=== PATIENT | male | born 1960 | race Caucasian/White ===

== ENCOUNTER 2017-10-20 16:19 | Inpatient (IN) | payer MEDICARE, MEDICAID ==
--- NOTE | 2017-10-20 16:43 | ED Physician Chart ---
ED Chief Complaint/HPI - Patient Information Date Seen:: 10/20/17 Time Seen:: 16:15 Chief Complaint:: Agitation History of Present Illness:: onset x 3 days of agitation and uncooperative behavior; no report of trauma, H/ As, SIs, S/T, neck pain, C/P, SOB, Abd. Pain, A/N/V/D/C, fever, chills, or urinary s/s Allergies:: Allergies Allergy/AdvReac Type Severity Reaction Status Date / Time No Known Allergies Allergy Verified 10/20/17 16:33 Historian:: Patient, EMS Review:: Nurse's Note Reviewed, Old Chart Reviewed, EMS run form Reviewed <Mannie Duncan - Last Filed: 10/20/17 18:20> - Patient Information Allergies:: Allergies Allergy/AdvReac Type Severity Reaction Status Date / Time No Known Allergies Allergy Verified 10/20/17 16:33 Vitals:: Vital Signs - 8 hr 10/20/17 10/20/17 16:33 18:00 Temp 97.3 F HR 52 60 RR 16 16 BP 118/87 124/82 O2 Sat % 98 97 <Say Mckeon - Last Filed: 10/21/17 12:34> ED Review of Systems - Review of Systems General/Constitutional: No fever, No chills, No weight loss, No weakness, No diaphoresis, No edema, No loss of appetite Skin: No skin lesions, No rash, No bruising Head: No headache, No light-headedness Eyes: No loss of vision, No pain, No diplopia ENT: No earache, No nasal drainage, No sore throat, No tinnitus Neck: No neck pain, No swelling, No thyromegaly, No stiffness, No mass noted Cardio Vascular: No chest pain, No palpitations, No PND, No orthopnea, No edema Pulmonary: No SOB, No cough, No sputum, No wheezing GI: No nausea, No vomiting, No diarrhea, No pain, No melena, No hematochezia, No constipation, No hematemesis G/U: No dysuria, No frequency, No hematuria, No nacturia Musculoskeletal: No bone or joint pain, No back pain, No muscle pain Endocrine: No polyuria, No polydipsia Psychiatric: Prior psych history, Depression, Anxiety, No suicidal ideation, No homicidal ideation, No auditory hallucination, No visual hallucination Hematopoietic: No bruising, No lymphadenopathy Allergic/Immuno: No urticaria, No angioedema Neurological: No syncope, No focal symptoms, No weakness, No paresthesia, No headache, No seizure, No dizziness, No confusion, No vertigo <Mannie Duncan - Last Filed: 10/20/17 18:20> ED Past Medical History - Past Medical History Obtainable: Yes Past Medical History: HTN, Dyslipidemia, Dementia Family History: HTN Social History: Non Smoker, No Alcohol, No Drug Use, Single, Care Facility Surgical History: None Psychiatricy History: Depression, Schizophrenia, Bipolar, Dementia Medication: Reviewed <LinarandiMannie rice - Last Filed: 10/20/17 18:20> Family Medical History - Family Member Mother History Unknown: Yes <LindaSay - Last Filed: 10/21/17 12:34> ED Physical Exam - Physical Examination General/Constitutional: Awake, Well-developed, well-nourished, Alert, No distress, GCS 15, Non-toxic appearing, Ambulatory Head: Atraumatic Eyes: Lids, conjuctiva normal, PERRL, EOMI Skin: Nl inspection, No rash, No skin lesions, No ecchymosis, Well hydrated, No lymphadenopathy ENMT: External ears, nose nl, TM canals nl, Nasal exam nl, Lips, teeth, gums nl , Oropharynx nl, Tonsils nl Neck: Nontender, Full ROM w/o pain, No JVD, No nuchal rigidity, No bruit, No mass, No stridor Respiratory: Nl effort/Exclusion, Clear to Auscultation, No Wheeze/Rhonchi/Rales Cardio Vascular: RRR, No murmur, gallop, rubs, NL S1 S2, Carotid/Femoral/Distal pulses equal bilaterally GI: No tenderness/rebounding/guarding, No organomegaly, No hernia, Normal BS's, Nondistended, No mass/bruits, No McBurney tenderness : No CVA tenderness Extremities: No tenderness or effusion, Full ROM, normal strength in all extremities, No edema, Normal digits & nails Neuro/Psych: Alert/oriented, DTR's symmetric, Normal sensory exam, Normal motor strength, Judgement/insight normal, Mood normal, Normal gait, No focal deficits Other Neuro/Psych comments:: + Psychomotor Agitation; no SIs; Mood/Affect: Labile Misc: Normal back, No paraspinal tenderness <Mannie Duncan - Last Filed: 10/20/17 18:20> ED Labs/Radiology/EKG Results - Lab Results Comments:: WBC: 17.8; K+: 3.4 - EKG Interpretations EKG Time:: 16:52 Rate & Rhythm: 52; SB Comments:: RVH; non-specific st-t changes <Mannie Duncan - Last Filed: 10/20/17 18:20> - Lab Results Results: Laboratory Tests 10/20/17 10/20/17 10/20/17 17:00 17:00 17:00 WBC 17.8 H RBC 5.00 Hgb 16.5 Hct 47.8 MCV 95.6 MCH 33.0 H MCHC Differential 34.5 RDW 12.3 Plt Count 236 MPV 7.7 Neutrophils % 84.3 H Lymphocytes % 10.5 L Monocytes % 4.2 Eosinophils % 0.4 Basophils % 0.6 Sodium 136 Potassium 3.4 L Chloride 105 Carbon Dioxide 23.5 Anion Gap 10.9 BUN 21 Creatinine 0.9 Est GFR ( Amer) > 60.0 Est GFR (Non-Af Amer) > 60.0 BUN/Creatinine Ratio 23.3 Glucose 143 H Whole Bld Lactic Acid Calcium 9.6 Total Bilirubin 0.3 AST 28 ALT 19 Alkaline Phosphatase 71 Troponin I Total Protein 7.7 Albumin 4.6 Globulin 3.1 Albumin/Globulin Ratio 1.5 Triglycerides 241 H Cholesterol 138 LDL Cholesterol Direct 101 HDL Cholesterol 24 TSH 1.35 Salicylates < 25.0 L Acetaminophen < 10.0 L Ethyl Alcohol < 10 10/20/17 10/20/17 17:00 17:45 WBC RBC Hgb Hct MCV MCH MCHC Differential RDW Plt Count MPV Neutrophils % Lymphocytes % Monocytes % Eosinophils % Basophils % Sodium Potassium Chloride Carbon Dioxide Anion Gap BUN Creatinine Est GFR ( Amer) Est GFR (Non-Af Amer) BUN/Creatinine Ratio Glucose Whole Bld Lactic Acid 1.09 Calcium Total Bilirubin AST ALT Alkaline Phosphatase Troponin I 0.02 Total Protein Albumin Globulin Albumin/Globulin Ratio Triglycerides Cholesterol LDL Cholesterol Direct HDL Cholesterol TSH Salicylates Acetaminophen Ethyl Alcohol <Say Mckeon - Last Filed: 10/21/17 12:34> ED Assessment - Assessment General Assessment: Patient stated that he had right peritoneal wound for 11 years. The wound had some clear secretion. Wound culture was ordered. Due to elevated WBC, rocephin 1g IM was given. Patient can be started with empirical oral antibiotics and have adjustment once wound culture result become available. <Say Mckeon - Last Filed: 10/21/17 12:34> ED Septic Shock - . Is Septic Shock (SBP<90, OR Lactate>4 mmol\L) present?: No <Mannie Duncan - Last Filed: 10/20/17 18:20> - . Is Septic Shock (SBP<90, OR Lactate>4 mmol\L) present?: No - <6hrs of presentation: Vital Signs: Vital Signs - 8 hr 10/20/17 10/20/17 16:33 18:00 Temp 97.3 F HR 52 60 RR 16 16 BP 118/87 124/82 O2 Sat % 98 97 <Say Mckeon - Last Filed: 10/21/17 12:34> ED Reassessment (Disposition) - Diagnosis Diagnosis:: Dx: Psychosis; Agitation; Medical clearance; Leukocytosis; Hypokalemia <Mannie Duncan - Last Filed: 10/20/17 18:20> - Reassessment Reassessment:: Cleared for geropsych admission Reassessment Condition:: Improved - Patient Disposition Admitting Medical Physician:: Enrico Cortes Admitting Psych Physician:: Anil Woods <Say Mckeon - Last Filed: 10/21/17 12:34> ED Discharge Plan <Mannie Duncan - Last Filed: 10/20/17 18:20> <Say Mckeon - Last Filed: 10/21/17 12:34> - Patient Disposition Admit/Discharge/Transfer: Other Care w/in this hosp Condition at Disposition: Stable
[2017-10-20 17:11] LABS: % BASOPHILS 0.6 % (0.0-2.0); % EOSINOPHILS 0.4 % (0.0-5.0); % LYMPHOCYTES 10.5 % (20.0-50.0); % MONOCYTES 4.2 % (2.0-10.0); % NEUTROPHILS 84.3 % (40.0-80.0); BASOPHILE ABSOLUTE 0.1 Th/cumm (0-0.2); EOSINOPHILE ABSOLUTE 0.1 Th/cmm (0.1-0.4); HEMATOCRIT 47.8 % (41.0-60); HEMOGLOBIN 16.5 gm/dL (12-16); LYMPHOCYTE ABSOLUTE 1.9 Th/cmm (1.5-3.0); MEAN CELL VOLUME 95.6 fl (80-99); MEAN CORPUSCULAR HGB CONC 34.5 pg (28.0-36.0); MEAN PLATELET VOLUME 7.7 fl; MONOCYTE ABSOLUTE 0.7 Th/cmm (0.3-1.0); PLATELET COUNT 236 Th/cmm (150-400); RED CELL DISTRIBUTION WIDTH 12.3 % (11.5-20.0)
[2017-10-20 17:24] LABS: WHITE BLOOD COUNT 17.8 Th/cmm (4.8-10.8)
[2017-10-20 17:30] LABS: ACETAMINOPHEN < 10.0 ug/mL (10.0-30.0); ALB/GLOB RATIO 1.5 (1.0-1.8); ALBUMIN 4.6 gm/dL (4.2-5.5); ALKALINE PHOSPHATASE 71 U/L (34-104); ANION GAP 10.9 (7.0-16.0); BILIRUBIN,TOTAL 0.3 mg/dL (0.3-1.0); BUN - UREA NITROGEN 21 mg/dL (7-25); CALCIUM SERUM 9.6 mg/dL (8.6-10.3); CARBON DIOXIDE 23.5 mEq/L (21.0-31.0); CHLORIDE 105 mEq/L (98-107); CHOLESTEROL 138 mg/dL (<200); CREATININE - SERUM 0.9 mg/dL (0.7-1.3); GFR AFRICAN-AMERICAN > 60.0 ml/min (>90); GFR NON AFRICAN-AMERICAN > 60.0 ml/min; GLUCOSE 143 mg/dL (70-105); HDL -HIGH DENSITY LIPOPROTEIN 24 mg/dL (23-92); POTASSIUM SERUM 3.4 mEq/L (3.5-5.1); SALICYLATES (ASPIRIN) < 25.0 mg/L (30.0-100.0); SGOT 28 U/L (13-39); SGPT/ALT 19 U/L (7-52); SODIUM SERUM 136 mEq/L (136-145); TOTAL PROTEIN,SERUM 7.7 gm/dL (6.0-8.3); TRIGLYCERIDES 241 mg/dL (<150)
[2017-10-20] MEDS ORDERED: Potassium Chloride 20 mEq ER Tab PO ONE (18:11)
[2017-10-20] MEDS ORDERED: Potassium Chloride Elixir 20 mEq /15 mL UDC ONE (19:18)
[2017-10-20 19:39] LABS: URINE MICROSCOPIC INDICATED? YES; URINE SOURCE CLEAN C
[2017-10-20 19:40] LABS: URINE BILIRUBIN NEGATIVE (NEGATIVE); URINE BLOOD NEGATIVE (NEGATIVE); URINE GLUCOSE (UA) NEGATIVE (NEGATIVE); URINE KETONE TRACE mg/dL (NEGATIVE); URINE LEUKOCYTE ESTERASE NEGATIVE (NEGATIVE); URINE NITRATE NEGATIVE (NEGATIVE); URINE PH 6.5 (4.6 - 8.0); URINE PROTEIN TRACE mg/dL (NEGATIVE)
[2017-10-20 19:49] LABS: AMPHETAMINE URINE NEGATIVE (NEGATIVE); BARBITURATES URINE NEGATIVE (NEGATIVE); BENZODIAZEPINES QUAL URINE NEGATIVE (NEGATIVE); CANNABINOID THC NEGATIVE (NEGATIVE); COCAINE METABOLITE QUAL URINE NEGATIVE (NEGATIVE); METHADONE URINE NEGATIVE (NEGATIVE); METHAMPHETAMINES QUAL URINE NEGATIVE (NEGATIVE); OPIATES (MORPHINE) QUAL. URINE NEGATIVE (NEGATIVE); PHENCYCLIDINE (PCP) URINE NEGATIVE (NEGATIVE); TRICYCLICS (TCA) QUAL. URINE NEGATIVE (NEGATIVE)
[2017-10-20 19:52] LABS: URINE CLARITY CLEAR (CLEAR); URINE COLOR YELLOW
[2017-10-20 19:55] LABS: URINE BACTERIA NONE SEEN /hpf (NONE SEEN); URINE EPITHELIAL CELLS NONE SEEN /lpf (FEW); URINE RBC NONE SEEN /hpf (0-5); URINE WBC 0-2 /hpf (0-5)
[2017-10-20 21:23] VITALS: BP 133/77
[2017-10-20] MEDS ORDERED: Magnesium Hydroxide (MOM) 30 mL UDC PO PRN (22:33)
[2017-10-20] MEDS ORDERED: Maalox 30 mL Cup PO PRN (22:33)
[2017-10-20] MEDS ORDERED: Non-Formulary Item 1 EA (Acetaminophen [Pain Reliever] 1 TAB) PO PRN (22:38)
[2017-10-20] MEDS ORDERED: Hydrocodone/APAP 5mg/325mg Tab PO PRN (22:38)
[2017-10-20] MEDS ORDERED: Pneumococcal Vaccine 0.5 mL Vial IM ONE (23:17)
[2017-10-21] MEDS ORDERED: INSULIN ASPART SLIDING SCALE 100 UNITS/ML UNIT SUBQ SCH (07:30)
--- NOTE | 2017-10-21 08:14 | History and Physical ---
History of Present Illness - HPI Chief Complaint: Agitation HPI: 57 y/o male who presents to [facility] ER for increased agitation noted by the nursing staff at the SNF. Patient has been having increased agitation and uncooperative behavior for the past 3 days. Patient was seen and evaluated by ER physician who states there were no reports of trauma, headaches, neck pain, chest pain, shortness of breath, abdominal pain, Nausea, Vomiting, Diarrhea, or Constipation, fever, chills, or urinary symptoms. Initial labwork revealed the following... - Lab Results Results: Laboratory Tests 10/20/17 10/20/17 10/20/17 17:00 17:00 17:00 WBC 17.8 H RBC 5.00 Hgb 16.5 Hct 47.8 MCV 95.6 MCH 33.0 H MCHC Differential 34.5 RDW 12.3 Plt Count 236 MPV 7.7 Neutrophils % 84.3 H Lymphocytes % 10.5 L Monocytes % 4.2 Eosinophils % 0.4 Basophils % 0.6 Sodium 136 Potassium 3.4 L Chloride 105 Carbon Dioxide 23.5 Anion Gap 10.9 BUN 21 Creatinine 0.9 Est GFR ( Amer) > 60.0 Est GFR (Non-Af Amer) > 60.0 BUN/Creatinine Ratio 23.3 Glucose 143 H Whole Bld Lactic Acid Calcium 9.6 Total Bilirubin 0.3 AST 28 ALT 19 Alkaline Phosphatase 71 Troponin I Total Protein 7.7 Albumin 4.6 Globulin 3.1 Albumin/Globulin Ratio 1.5 Triglycerides 241 H Cholesterol 138 LDL Cholesterol Direct 101 HDL Cholesterol 24 TSH 1.35 Salicylates < 25.0 L Acetaminophen < 10.0 L Ethyl Alcohol < 10 10/20/17 10/20/17 17:00 17:45 WBC RBC Hgb Hct MCV MCH MCHC Differential RDW Plt Count MPV Neutrophils % Lymphocytes % Monocytes % Eosinophils % Basophils % Sodium Potassium Chloride Carbon Dioxide Anion Gap BUN Creatinine Est GFR ( Amer) Est GFR (Non-Af Amer) BUN/Creatinine Ratio Glucose Whole Bld Lactic Acid 1.09 Calcium Total Bilirubin AST ALT Alkaline Phosphatase Troponin I 0.02 Total Protein Albumin Globulin Albumin/Globulin Ratio Triglycerides Cholesterol LDL Cholesterol Direct HDL Cholesterol TSH Salicylates Acetaminophen Ethyl Alcohol Patient was noted to have an elevated WBC of 17K .... ER physician noted, the "Patient stated that he had right peritoneal wound for 11 years. The wound had some clear secretion. Wound culture was ordered. Due to elevated WBC, rocephin 1g IM was given. Patient can be started with empirical oral antibiotics and have adjustment once wound culture result become available." Patient was subsequently admitted for further evaluation and treatment. Vital Signs: Last Vital Signs Temp 98.4 F 10/21/17 04:33 Pulse 77 10/21/17 04:33 Resp 19 10/21/17 04:33 BP 117/76 10/21/17 04:33 Pulse Ox 94 10/21/17 04:33 Past Medical History Cardiovascular: Report: HTN, Hyperlipidemia Pulmonary: Report: No Pertinent Hx [employer]: Report: Dementia GI: Report: No Pertinent Hx Psych: Report: Bipolar, Depression, Psychosis, Schizophrenia Musculoskeletal: Report: No Pertinent Hx Rheumatologic: Report: No pertinent Hx Infectious Disease: Report: No Pertinent Hx Renal/: Report: No Pertinent Hx Endocrine: Report: No Pertinent Hx Dermatology: Report: No Pertinent Hx Other History: Patient stated that he had right peritoneal wound for 11 years. The wound had some clear secretion. Wound culture was ordered. Due to elevated WBC, rocephin 1g IM was given. Patient can be started with empirical oral antibiotics and have adjustment once wound culture result become available. - Past Surgical History Past Surgical History: No pertinent Hx Family Medical History - Family Member Mother History Unknown: Yes Ethnicity: Unknown Living Status: Unknown Social History Smoke: No Alcohol: None Drugs: None Lives: [facility] - Medications Home Medications: Home Medication Medication Instructions Recorded Type Acetaminophen [Pain Reliever] 1 tab PO Q6H PRN 10/20/17 History Calcium Carbonate [Calcium] 1 tab PO BID 10/20/17 History D10w 250 ml IV STAT PRN PRN 10/20/17 History Diclofenac Sodium 1 tab PO BID 10/20/17 History Ferrous Sulfate [Iron] 1 tab PO BID 10/20/17 History Glucagon HCl 1 mg IM STAT PRN PRN 10/20/17 History Hydrocodone/APAP 5mg/325mg [[place] 1 tab PO Q6H PRN 10/20/17 History 5mg/325mg] Hydrocodone/Acetaminophen [[place] 1 tab PO DAILY 10/20/17 History 325 mg-5 mg*] Insulin Glulisine [Apidra] 0 unit SUBQ QDAC 10/20/17 History Levothyroxine [Synthroid] 1 tab PO DAILY 10/20/17 History Multivitamin-Min/Iron/FA/Vit K 1 tab PO DAILY 10/20/17 History [Multi-Day Plus Minerals Tablet] Pantoprazole [Protonix] 1 tab PO DAILY 10/20/17 History - Allergies Allergies/Adverse Reactions: Allergies Allergy/AdvReac Type Severity Reaction Status Date / Time No Known Allergies Allergy Verified 10/20/17 16:33 Review of Systems - Review of Systems Constitutional: Report: No Significant Eyes: Report: No Significant ENT: Report: No Significant Respiratory: Report: No Significant Cardiovascular: Report: No Significant Gastrointestinal: Report: No Significant Genitourinary: Report: No Significant Musculoskeletal: Report: No Significant Skin: Report: No Significant Neurological: Report: Confusion Physical Exam - Physical Exam HEENT: Report: Ears Nose Throat within normal limits, Pharnyx within normal limits Neck: Report: Within normal limits. Denies: Thyromegaly Cardiovascular Systems: Report: +s1/s2 noted, Regular, Rate and Rhythm Respiratory: Report: Breath Sounds are within normal limits, Clear to Auscultation of lung crespo Abdomen: Report: Non-tender to palpation Back: Report: Inspection of back is within normal limits. Extremities: Report: Non-tender to palpation. Skin: Report: Color of skin is within normal limits - Lab Results All Lab Results last 24 hours: Laboratory Results - last 24 hr 10/20/17 10/20/17 10/20/17 17:00 17:00 17:00 WBC 17.8 H RBC 5.00 Hgb 16.5 Hct 47.8 MCV 95.6 MCH 33.0 H MCHC Differential 34.5 RDW 12.3 Plt Count 236 MPV 7.7 Neutrophils % 84.3 H Lymphocytes % 10.5 L Monocytes % 4.2 Eosinophils % 0.4 Basophils % 0.6 Sodium 136 Potassium 3.4 L Chloride 105 Carbon Dioxide 23.5 Anion Gap 10.9 BUN 21 Creatinine 0.9 Est GFR ( Amer) > 60.0 Est GFR (Non-Af Amer) > 60.0 BUN/Creatinine Ratio 23.3 Glucose 143 H POC Glucose Whole Bld Lactic Acid Calcium 9.6 Total Bilirubin 0.3 AST 28 ALT 19 Alkaline Phosphatase 71 Troponin I Total Protein 7.7 Albumin 4.6 Globulin 3.1 Albumin/Globulin Ratio 1.5 Triglycerides 241 H Cholesterol 138 LDL Cholesterol Direct 101 HDL Cholesterol 24 TSH 1.35 Urine Source Urine Color Urine Clarity Urine pH Ur Specific [place] Urine Protein Urine Glucose (UA) Urine Ketones Urine Blood Urine Nitrate Urine Bilirubin Urine Urobilinogen Ur Leukocyte Esterase Urine RBC Urine WBC Ur Epithelial Cells Calcium Oxalate Crystal Urine Bacteria Urine Mucus Salicylates < 25.0 L Urine Opiates Screen Urine Methadone Screen Acetaminophen < 10.0 L Ur Barbiturates Screen Ur Tricyclics Screen Ur Phencyclidine Scrn Amphetamines Screen U Methamphetamines Scrn U Benzodiazepines Scrn U Cocaine Metab Screen U Cannabinoids Screen Ethyl Alcohol < 10 10/20/17 10/20/17 10/20/17 17:00 17:45 19:00 WBC RBC Hgb Hct MCV MCH MCHC Differential RDW Plt Count MPV Neutrophils % Lymphocytes % Monocytes % Eosinophils % Basophils % Sodium Potassium Chloride Carbon Dioxide Anion Gap BUN Creatinine Est GFR ( Amer) Est GFR (Non-Af Amer) BUN/Creatinine Ratio Glucose POC Glucose Whole Bld Lactic Acid 1.09 Calcium Total Bilirubin AST ALT Alkaline Phosphatase Troponin I 0.02 Total Protein Albumin Globulin Albumin/Globulin Ratio Triglycerides Cholesterol LDL Cholesterol Direct HDL Cholesterol TSH Urine Source CLEAN C Urine Color YELLOW Urine Clarity CLEAR Urine pH 6.5 Ur Specific [place] 1.025 Urine Protein TRACE Urine Glucose (UA) NEGATIVE Urine Ketones TRACE Urine Blood NEGATIVE Urine Nitrate NEGATIVE Urine Bilirubin NEGATIVE Urine Urobilinogen 1.0 Ur Leukocyte Esterase NEGATIVE Urine RBC NONE SEEN Urine WBC 0-2 Ur Epithelial Cells NONE SEEN Calcium Oxalate Crystal FEW Urine Bacteria NONE SEEN Urine Mucus MODERATE Salicylates Urine Opiates Screen Urine Methadone Screen Acetaminophen Ur Barbiturates Screen Ur Tricyclics Screen Ur Phencyclidine Scrn Amphetamines Screen U Methamphetamines Scrn U Benzodiazepines Scrn U Cocaine Metab Screen U Cannabinoids Screen Ethyl Alcohol 10/20/17 10/21/17 19:00 06:46 WBC RBC Hgb Hct MCV MCH MCHC Differential RDW Plt Count MPV Neutrophils % Lymphocytes % Monocytes % Eosinophils % Basophils % Sodium Potassium Chloride Carbon Dioxide Anion Gap BUN Creatinine Est GFR ( Amer) Est GFR (Non-Af Amer) BUN/Creatinine Ratio Glucose POC Glucose 106 H Whole Bld Lactic Acid Calcium Total Bilirubin AST ALT Alkaline Phosphatase Troponin I Total Protein Albumin Globulin Albumin/Globulin Ratio Triglycerides Cholesterol LDL Cholesterol Direct HDL Cholesterol TSH Urine Source Urine Color Urine Clarity Urine pH Ur Specific [place] Urine Protein Urine Glucose (UA) Urine Ketones Urine Blood Urine Nitrate Urine Bilirubin Urine Urobilinogen Ur Leukocyte Esterase Urine RBC Urine WBC Ur Epithelial Cells Calcium Oxalate Crystal Urine Bacteria Urine Mucus Salicylates Urine Opiates Screen NEGATIVE Urine Methadone Screen NEGATIVE Acetaminophen Ur Barbiturates Screen NEGATIVE Ur Tricyclics Screen NEGATIVE Ur Phencyclidine Scrn NEGATIVE Amphetamines Screen NEGATIVE U Methamphetamines Scrn NEGATIVE U Benzodiazepines Scrn NEGATIVE U Cocaine Metab Screen NEGATIVE U Cannabinoids Screen NEGATIVE Ethyl Alcohol - Assessment Assessment: cellulitis to abdomen Psychosis Agitation Leukocytosis Hypokalemia HTN Dyslipidemia Dementia Depression Schizophrenia Bipolar - Plan Plan: admit to [facility] repeat CBC, CMP continue oral antibiotics.
[2017-10-21 08:52] LABS: % BASOPHILS 0.6 % (0.0-2.0); % EOSINOPHILS 0.6 % (0.0-5.0); % MONOCYTES 5.3 % (2.0-10.0); % NEUTROPHILS 72.5 % (40.0-80.0); BASOPHILE ABSOLUTE 0.1 Th/cumm (0-0.2); EOSINOPHILE ABSOLUTE 0.1 Th/cmm (0.1-0.4); HEMATOCRIT 46.7 % (41.0-60); HEMOGLOBIN 15.6 gm/dL (12-16); LYMPHOCYTE ABSOLUTE 1.9 Th/cmm (1.5-3.0); MEAN CELL VOLUME 96.8 fl (80-99); MEAN CORPUSCULAR HEMOGLOBIN 32.3 pg (26.0-30.0); MEAN CORPUSCULAR HGB CONC 33.4 pg (28.0-36.0); MEAN PLATELET VOLUME 7.6 fl; MONOCYTE ABSOLUTE 0.5 Th/cmm (0.3-1.0); NEUTROPHILE ABSOLUTE 6.3 Th/cmm (1.8-8.0); PLATELET COUNT 240 Th/cmm (150-400); RED BLOOD COUNT 4.82 Mil/cmm (4.30-5.70); RED CELL DISTRIBUTION WIDTH 12.2 % (11.5-20.0)
[2017-10-21] MEDS: Diclofenac 75 mg Tab PO SCH ×2 (08:57→16:10)
[2017-10-21] MEDS: Ferrous Sulfate 325 MG TAB PO SCH ×2 (08:57→16:10)
[2017-10-21] MEDS: Hydrocodone/APAP 5mg/325mg Tab PO SCH (08:58)
[2017-10-21] MEDS: Multivitamin w/ Minerals Tab PO SCH (08:59)
[2017-10-21] MEDS: Levothyroxine 0.025 Mg Tab PO SCH (08:59)
[2017-10-21] MEDS: Pantoprazole 40 mg EC Tab PO SCH (08:59)
[2017-10-21] MEDS ORDERED: Multivitamin Tab PO SCH (09:00)
[2017-10-21 09:04] LABS: WHITE BLOOD COUNT 8.9 Th/cmm (4.8-10.8)
[2017-10-21 09:11] LABS: ALB/GLOB RATIO 1.5 (1.0-1.8); ALBUMIN 4.5 gm/dL (4.2-5.5); ALKALINE PHOSPHATASE 80 U/L (34-104); ANION GAP 9.7 (7.0-16.0); BILIRUBIN,TOTAL 0.5 mg/dL (0.3-1.0); BUN - UREA NITROGEN 22 mg/dL (7-25); CALCIUM SERUM 9.6 mg/dL (8.6-10.3); CHLORIDE 105 mEq/L (98-107); CREATININE - SERUM 0.8 mg/dL (0.7-1.3); GFR AFRICAN-AMERICAN > 60.0 ml/min (>90); GFR NON AFRICAN-AMERICAN > 60.0 ml/min; GLUCOSE 137 mg/dL (70-105); POTASSIUM SERUM 3.7 mEq/L (3.5-5.1); SGOT 36 U/L (13-39); SGPT/ALT 20 U/L (7-52); SODIUM SERUM 135 mEq/L (136-145); TOTAL PROTEIN,SERUM 7.6 gm/dL (6.0-8.3)
[2017-10-21] MEDS: INSULIN ASPART SLIDING SCALE 100 UNITS/ML UNIT SUBQ SCH ×3 (11:27→20:55)
[2017-10-21 21:30] LABS: A1C % 5.1 % (4.0-6.0)
[2017-10-22] MEDS: INSULIN ASPART SLIDING SCALE 100 UNITS/ML UNIT SUBQ SCH ×4 (07:23→21:56)
--- NOTE | 2017-10-22 08:14 | General Progress Note ---
Subjective - Review of Systems Service Date: 10/22/17 Subjective: T 97.0 P 60 BP 98/54 R 18 Objective - Results Result Diagrams: 10/21/17 08:40 10/21/17 08:40 Recent Labs: Laboratory Last Values WBC 8.9 Th/cmm (4.8-10.8) D 10/21/17 08:40 RBC 4.82 Mil/cmm (4.30-5.70) 10/21/17 08:40 Hgb 15.6 gm/dL (12-16) 10/21/17 08:40 Hct 46.7 % (41.0-60) 10/21/17 08:40 MCV 96.8 fl (80-99) 10/21/17 08:40 MCH 32.3 pg (26.0-30.0) H 10/21/17 08:40 MCHC Differential 33.4 pg (28.0-36.0) 10/21/17 08:40 RDW 12.2 % (11.5-20.0) 10/21/17 08:40 Plt Count 240 Th/cmm (150-400) 10/21/17 08:40 MPV 7.6 fl 10/21/17 08:40 Neutrophils % 72.5 % (40.0-80.0) 10/21/17 08:40 Lymphocytes % 21.0 % (20.0-50.0) 10/21/17 08:40 Monocytes % 5.3 % (2.0-10.0) 10/21/17 08:40 Eosinophils % 0.6 % (0.0-5.0) 10/21/17 08:40 Basophils % 0.6 % (0.0-2.0) 10/21/17 08:40 Sodium 135 mEq/L (136-145) L 10/21/17 08:40 Potassium 3.7 mEq/L (3.5-5.1) 10/21/17 08:40 Chloride 105 mEq/L (98-107) 10/21/17 08:40 Carbon Dioxide 24.0 mEq/L (21.0-31.0) 10/21/17 08:40 Anion Gap 9.7 (7.0-16.0) 10/21/17 08:40 BUN 22 mg/dL (7-25) 10/21/17 08:40 Creatinine 0.8 mg/dL (0.7-1.3) 10/21/17 08:40 Est GFR ( Amer) > 60.0 ml/min (>90) 10/21/17 08:40 Est GFR (Non-Af Amer) > 60.0 ml/min 10/21/17 08:40 BUN/Creatinine Ratio 27.5 10/21/17 08:40 Glucose 137 mg/dL (70-105) H 10/21/17 08:40 POC Glucose 105 MG/DL (70 - 105) 10/21/17 20:20 Hemoglobin A1c % 5.1 % (4.0-6.0) 10/20/17 17:00 Whole Bld Lactic Acid 1.09 mmol/L (0.60-1.99) 10/20/17 17:45 Calcium 9.6 mg/dL (8.6-10.3) 10/21/17 08:40 Total Bilirubin 0.5 mg/dL (0.3-1.0) 10/21/17 08:40 AST 36 U/L (13-39) 10/21/17 08:40 ALT 20 U/L (7-52) 10/21/17 08:40 Alkaline Phosphatase 80 U/L (34-104) 10/21/17 08:40 Troponin I 0.02 ng/mL (0.01-0.05) 10/20/17 17:00 Total Protein 7.6 gm/dL (6.0-8.3) 10/21/17 08:40 Albumin 4.5 gm/dL (4.2-5.5) 10/21/17 08:40 Globulin 3.1 gm/dL 10/21/17 08:40 Albumin/Globulin Ratio 1.5 (1.0-1.8) 10/21/17 08:40 Triglycerides 241 mg/dL (<150) H 10/20/17 17:00 Cholesterol 138 mg/dL (<200) 10/20/17 17:00 LDL Cholesterol Direct 101 mg/dL (75-193) 10/20/17 17:00 HDL Cholesterol 24 mg/dL (23-92) 10/20/17 17:00 TSH 1.35 uIU/ml (0.34-5.60) 10/20/17 17:00 Urine Source CLEAN C 10/20/17 19:00 Urine Color YELLOW 10/20/17 19:00 Urine Clarity CLEAR (CLEAR) 10/20/17 19:00 Urine pH 6.5 (4.6 - 8.0) 10/20/17 19:00 Ur Specific [place] 1.025 (1.005-1.030) 10/20/17 19:00 Urine Protein TRACE mg/dL (NEGATIVE) 10/20/17 19:00 Urine Glucose (UA) NEGATIVE mg/dL (NEGATIVE) 10/20/17 19:00 Urine Ketones TRACE mg/dL (NEGATIVE) 10/20/17 19:00 Urine Blood NEGATIVE (NEGATIVE) 10/20/17 19:00 Urine Nitrate NEGATIVE (NEGATIVE) 10/20/17 19:00 Urine Bilirubin NEGATIVE (NEGATIVE) 10/20/17 19:00 Urine Urobilinogen 1.0 E.U./dL (0.2 - 1.0) 10/20/17 19:00 Ur Leukocyte Esterase NEGATIVE (NEGATIVE) 10/20/17 19:00 Urine RBC NONE SEEN /hpf (0-5) 10/20/17 19:00 Urine WBC 0-2 /hpf (0-5) 10/20/17 19:00 Ur Epithelial Cells NONE SEEN /lpf (FEW) 10/20/17 19:00 Calcium Oxalate Crystal FEW /hpf 10/20/17 19:00 Urine Bacteria NONE SEEN /hpf (NONE SEEN) 10/20/17 19:00 Urine Mucus MODERATE /lpf (FEW) 10/20/17 19:00 Salicylates < 25.0 mg/L (30.0-100.0) L 10/20/17 17:00 Urine Opiates Screen NEGATIVE (NEGATIVE) 10/20/17 19:00 Urine Methadone Screen NEGATIVE (NEGATIVE) 10/20/17 19:00 Acetaminophen < 10.0 ug/mL (10.0-30.0) L 10/20/17 17:00 Ur Barbiturates Screen NEGATIVE (NEGATIVE) 10/20/17 19:00 Ur Tricyclics Screen NEGATIVE (NEGATIVE) 10/20/17 19:00 Ur Phencyclidine Scrn NEGATIVE (NEGATIVE) 10/20/17 19:00 Amphetamines Screen NEGATIVE (NEGATIVE) 10/20/17 19:00 U Methamphetamines Scrn NEGATIVE (NEGATIVE) 10/20/17 19:00 U Benzodiazepines Scrn NEGATIVE (NEGATIVE) 10/20/17 19:00 U Cocaine Metab Screen NEGATIVE (NEGATIVE) 10/20/17 19:00 U Cannabinoids Screen NEGATIVE (NEGATIVE) 10/20/17 19:00 Ethyl Alcohol < 10 mg/dL (0-10) 10/20/17 17:00 RPR NONREACTIVE (NONREACTIVE) 10/20/17 17:00 - Physical Exam Vitals and I&O: Vital Signs Temp 97 F 10/21/17 14:49 Pulse 60 10/21/17 14:49 Resp 18 10/21/17 14:49 BP 98/54 10/21/17 14:49 Pulse Ox 98 10/21/17 14:49 Active Medications: Current Medications Acetaminophen (Tylenol) 650 mg PO Q4H PRN PRN Reason: Mild Pain / Temp above 100 Stop: 12/19/17 22:32 Acetaminophen/Hydrocodone Bitart ([place] 5mg/325mg) 1 tab PO DAILY [facility] Stop: 12/20/17 08:59 Last Admin: 10/21/17 08:58 Dose: 1 tab Acetaminophen/Hydrocodone Bitart ([place] 5mg/325mg) 1 tab PO Q6H PRN PRN Reason: moderate/severe pain Stop: 12/19/17 22:37 Al Hydrox/Mg Hydrox/Simethicone (Maalox) 30 ml PO Q4H PRN PRN Reason: GI DISTRESS Stop: 12/19/17 22:32 Calcium Carbonate (Os-Harshad) 500 mg PO BID [facility] Stop: 12/20/17 08:59 Last Admin: 10/21/17 16:10 Dose: 500 mg Cephalexin Monohydrate (Keflex) 500 mg PO QID [facility] Stop: 12/20/17 08:59 Last Admin: 10/21/17 20:56 Dose: 500 mg Diclofenac Sodium (Voltaren) 75 mg PO BID [facility] Stop: 12/20/17 08:59 Last Admin: 10/21/17 16:10 Dose: 75 mg Ferrous Sulfate (Iron) 325 mg PO BID [facility] Stop: 12/20/17 08:59 Last Admin: 10/21/17 16:10 Dose: 325 mg Insulin Aspart (Novolog Insulin Sliding Scale) 0 units SUBQ ACHS [facility]; Protocol Stop: 12/20/17 11:29 Last Admin: 10/22/17 07:23 Dose: Not Given Levothyroxine Sodium (Synthroid) 0.025 mg PO DAILY ANDI Stop: 12/20/17 08:59 Last Admin: 10/21/17 08:59 Dose: 0.025 mg Lorazepam (Ativan) 0.5 mg PO Q4HR PRN; Protocol PRN Reason: Anxiety Stop: 11/19/17 20:59 Last Admin: 10/21/17 20:57 Dose: 0.5 mg Magnesium Hydroxide (Milk Of Magnesia) 30 ml PO HS PRN PRN Reason: Constipation Pantoprazole Sodium (Protonix) 40 mg PO DAILY ANDI Stop: 12/20/17 08:59 Last Admin: 10/21/17 08:59 Dose: 40 mg Quetiapine Fumarate (Seroquel) 50 mg PO Q12HR ANDI; Protocol Stop: 12/21/17 08:59 Zolpidem Tartrate (Ambien) 5 mg PO HS PRN PRN Reason: Insomnia Stop: 12/19/17 22:32 Last Admin: 10/21/17 20:58 Dose: 5 mg General: Alert, Oriented x3, No acute distress HEENT: Atraumatic, PERRLA, EOMI Neck: Supple, no JVD, no Thyromegaly Cardiovascular: Regular rate, Normal S1, Normal S2 Lungs: Clear to auscultation Abdomen: Bowel sounds, Soft Extremities: no Clubbing, no Cyanosis, no Edema Neurological: Normal gait, Normal speech Skin: no Rash Assessment/Plan - Assessment Assessment: cellulitis to abdomen Psychosis Agitation Leukocytosis Hypokalemia HTN hyponatremia Dyslipidemia Dementia Depression Schizophrenia Bipolar - [facility], C[facility] continue oral antibiotics.
[2017-10-22] MEDS: Ferrous Sulfate 325 MG TAB PO SCH ×2 (08:54→16:52)
[2017-10-22] MEDS: Levothyroxine 0.025 Mg Tab PO SCH (08:54)
[2017-10-22] MEDS: Pantoprazole 40 mg EC Tab PO SCH (08:54)
[2017-10-22] MEDS: Multivitamin w/ Minerals Tab PO SCH (08:54)
[2017-10-22] MEDS: Hydrocodone/APAP 5mg/325mg Tab PO SCH (08:55)
[2017-10-22] MEDS: Diclofenac 75 mg Tab PO SCH ×2 (08:55→16:52)
--- NOTE | 2017-10-22 21:28 | Psychosocial Evaluation ---
DATE OF SERVICE: INITIAL EVALUATION AND MENTAL STATUS EXAM PATIENT'S AGE: 57. SEX: Male. PHYSICIAN: Anil Woods MD, MPH CHIEF COMPLAINT: Agitation and striking out behavior. HISTORY OF PRESENT ILLNESS: The patient is a 57-year-old male who lives in [facility]. The patient has been running out of the building and striking out peers and staffs and has destructive behavior. The patient also has been angry and paranoid. The patient also has been suspicious and has been not able to follow any of the staff's directions. The patient also during interview has not been able to carry on coherent conversation. PAST PSYCHIATRIC HISTORY: The patient has history of what seems to be psychosis and to rule out schizophrenic disorder versus schizoaffective disorder. SOCIAL HISTORY: The patient lives in [facility]. No known alcohol or drug use. No legal issues or abuse issues. The patient is unemployed, on disability. ALLERGIES: No known allergies. MENTAL STATUS EXAMINATION: The patient appears slightly older than his stated age. Anxious. Irritable mood. Flat affect. Unkempt. Thought processes are circumstantial and tangential with flight of ideas. The patient also was agitated when I started asking questions. The patient denied auditory or visual hallucinations, but seems to be preoccupied. He denies any thoughts of suicide or homicide. The patient is alert, but unable to assess his orientation or memory at this time because of his agitation and irritability. Poor insight. Poor judgment. Seems to be of average intelligence based on his verbal ability. ASSESSMENT AND PRIMARY DIAGNOSIS: Schizoaffective disorder, bipolar type, with psychotic features. TREATMENT PLAN: We will monitor the patient's behavior and condition closely. Also, we will start the patient on Seroquel. Also, we will work on his agitation and irritability. ESTIMATED LENGTH OF STAY: 7-10 days. PATIENT'S STRENGTHS AND WEAKNESSES: The patient's strength is not clear at this time. Weaknesses are his poor impulse control and inability to follow directions. AFTER-DISCHARGE PLAN: Outpatient treatment and followup will continue as an outpatient. CRITERIA FOR DISCHARGE: The patient will not be aggressive and will have better impulse control and we will stabilize psychotropic medications. JOB# [id number]
[2017-10-23] MEDS: INSULIN ASPART SLIDING SCALE 100 UNITS/ML UNIT SUBQ SCH ×4 (06:46→21:17)
--- NOTE | 2017-10-23 06:52 | General Progress Note ---
Subjective - Review of Systems Service Date: 10/23/17 Subjective: T 97.8 P 52 BP 103/53 R 18 Objective - Results Result Diagrams: 10/21/17 08:40 10/21/17 08:40 Recent Labs: Laboratory Last Values WBC 8.9 Th/cmm (4.8-10.8) D 10/21/17 08:40 RBC 4.82 Mil/cmm (4.30-5.70) 10/21/17 08:40 Hgb 15.6 gm/dL (12-16) 10/21/17 08:40 Hct 46.7 % (41.0-60) 10/21/17 08:40 MCV 96.8 fl (80-99) 10/21/17 08:40 MCH 32.3 pg (26.0-30.0) H 10/21/17 08:40 MCHC Differential 33.4 pg (28.0-36.0) 10/21/17 08:40 RDW 12.2 % (11.5-20.0) 10/21/17 08:40 Plt Count 240 Th/cmm (150-400) 10/21/17 08:40 MPV 7.6 fl 10/21/17 08:40 Neutrophils % 72.5 % (40.0-80.0) 10/21/17 08:40 Lymphocytes % 21.0 % (20.0-50.0) 10/21/17 08:40 Monocytes % 5.3 % (2.0-10.0) 10/21/17 08:40 Eosinophils % 0.6 % (0.0-5.0) 10/21/17 08:40 Basophils % 0.6 % (0.0-2.0) 10/21/17 08:40 Sodium 135 mEq/L (136-145) L 10/21/17 08:40 Potassium 3.7 mEq/L (3.5-5.1) 10/21/17 08:40 Chloride 105 mEq/L (98-107) 10/21/17 08:40 Carbon Dioxide 24.0 mEq/L (21.0-31.0) 10/21/17 08:40 Anion Gap 9.7 (7.0-16.0) 10/21/17 08:40 BUN 22 mg/dL (7-25) 10/21/17 08:40 Creatinine 0.8 mg/dL (0.7-1.3) 10/21/17 08:40 Est GFR ( Amer) > 60.0 ml/min (>90) 10/21/17 08:40 Est GFR (Non-Af Amer) > 60.0 ml/min 10/21/17 08:40 BUN/Creatinine Ratio 27.5 10/21/17 08:40 Glucose 137 mg/dL (70-105) H 10/21/17 08:40 POC Glucose 111 MG/DL (70 - 105) H 10/23/17 06:39 Hemoglobin A1c % 5.1 % (4.0-6.0) 10/20/17 17:00 Whole Bld Lactic Acid 1.09 mmol/L (0.60-1.99) 10/20/17 17:45 Calcium 9.6 mg/dL (8.6-10.3) 10/21/17 08:40 Total Bilirubin 0.5 mg/dL (0.3-1.0) 10/21/17 08:40 AST 36 U/L (13-39) 10/21/17 08:40 ALT 20 U/L (7-52) 10/21/17 08:40 Alkaline Phosphatase 80 U/L (34-104) 10/21/17 08:40 Troponin I 0.02 ng/mL (0.01-0.05) 10/20/17 17:00 Total Protein 7.6 gm/dL (6.0-8.3) 10/21/17 08:40 Albumin 4.5 gm/dL (4.2-5.5) 10/21/17 08:40 Globulin 3.1 gm/dL 10/21/17 08:40 Albumin/Globulin Ratio 1.5 (1.0-1.8) 10/21/17 08:40 Triglycerides 241 mg/dL (<150) H 10/20/17 17:00 Cholesterol 138 mg/dL (<200) 10/20/17 17:00 LDL Cholesterol Direct 101 mg/dL (75-193) 10/20/17 17:00 HDL Cholesterol 24 mg/dL (23-92) 10/20/17 17:00 TSH 1.35 uIU/ml (0.34-5.60) 10/20/17 17:00 Urine Source CLEAN C 10/20/17 19:00 Urine Color YELLOW 10/20/17 19:00 Urine Clarity CLEAR (CLEAR) 10/20/17 19:00 Urine pH 6.5 (4.6 - 8.0) 10/20/17 19:00 Ur Specific [place] 1.025 (1.005-1.030) 10/20/17 19:00 Urine Protein TRACE mg/dL (NEGATIVE) 10/20/17 19:00 Urine Glucose (UA) NEGATIVE mg/dL (NEGATIVE) 10/20/17 19:00 Urine Ketones TRACE mg/dL (NEGATIVE) 10/20/17 19:00 Urine Blood NEGATIVE (NEGATIVE) 10/20/17 19:00 Urine Nitrate NEGATIVE (NEGATIVE) 10/20/17 19:00 Urine Bilirubin NEGATIVE (NEGATIVE) 10/20/17 19:00 Urine Urobilinogen 1.0 E.U./dL (0.2 - 1.0) 10/20/17 19:00 Ur Leukocyte Esterase NEGATIVE (NEGATIVE) 10/20/17 19:00 Urine RBC NONE SEEN /hpf (0-5) 10/20/17 19:00 Urine WBC 0-2 /hpf (0-5) 10/20/17 19:00 Ur Epithelial Cells NONE SEEN /lpf (FEW) 10/20/17 19:00 Calcium Oxalate Crystal FEW /hpf 10/20/17 19:00 Urine Bacteria NONE SEEN /hpf (NONE SEEN) 10/20/17 19:00 Urine Mucus MODERATE /lpf (FEW) 10/20/17 19:00 Salicylates < 25.0 mg/L (30.0-100.0) L 10/20/17 17:00 Urine Opiates Screen NEGATIVE (NEGATIVE) 10/20/17 19:00 Urine Methadone Screen NEGATIVE (NEGATIVE) 10/20/17 19:00 Acetaminophen < 10.0 ug/mL (10.0-30.0) L 10/20/17 17:00 Ur Barbiturates Screen NEGATIVE (NEGATIVE) 10/20/17 19:00 Ur Tricyclics Screen NEGATIVE (NEGATIVE) 10/20/17 19:00 Ur Phencyclidine Scrn NEGATIVE (NEGATIVE) 10/20/17 19:00 Amphetamines Screen NEGATIVE (NEGATIVE) 10/20/17 19:00 U Methamphetamines Scrn NEGATIVE (NEGATIVE) 10/20/17 19:00 U Benzodiazepines Scrn NEGATIVE (NEGATIVE) 10/20/17 19:00 U Cocaine Metab Screen NEGATIVE (NEGATIVE) 10/20/17 19:00 U Cannabinoids Screen NEGATIVE (NEGATIVE) 10/20/17 19:00 Ethyl Alcohol < 10 mg/dL (0-10) 10/20/17 17:00 RPR NONREACTIVE (NONREACTIVE) 10/20/17 17:00 - Physical Exam Vitals and I&O: Vital Signs Temp 97.8 F 10/22/17 14:00 Pulse 52 10/22/17 14:00 Resp 18 10/22/17 14:00 BP 103/53 10/22/17 14:00 Pulse Ox 98 10/22/17 14:00 Active Medications: Current Medications Acetaminophen (Tylenol) 650 mg PO Q4H PRN PRN Reason: Mild Pain / Temp above 100 Stop: 12/19/17 22:32 Acetaminophen/Hydrocodone Bitart ([place] 5mg/325mg) 1 tab PO DAILY [facility] Stop: 12/20/17 08:59 Last Admin: 10/22/17 08:55 Dose: 1 tab Acetaminophen/Hydrocodone Bitart ([place] 5mg/325mg) 1 tab PO Q6H PRN PRN Reason: moderate/severe pain Stop: 12/19/17 22:37 Al Hydrox/Mg Hydrox/Simethicone (Maalox) 30 ml PO Q4H PRN PRN Reason: GI DISTRESS Stop: 12/19/17 22:32 Calcium Carbonate (Os-Harshad) 500 mg PO BID [facility] Stop: 12/20/17 08:59 Last Admin: 10/22/17 16:52 Dose: 500 mg Cephalexin Monohydrate (Keflex) 500 mg PO QID [facility] Stop: 12/20/17 08:59 Last Admin: 10/22/17 21:51 Dose: 500 mg Diclofenac Sodium (Voltaren) 75 mg PO BID [facility] Stop: 12/20/17 08:59 Last Admin: 10/22/17 16:52 Dose: 75 mg Ferrous Sulfate (Iron) 325 mg PO BID [facility] Stop: 12/20/17 08:59 Last Admin: 10/22/17 16:52 Dose: 325 mg Insulin Aspart (Novolog Insulin Sliding Scale) 0 units SUBQ ACHS [facility]; Protocol Stop: 12/20/17 11:29 Last Admin: 10/23/17 06:46 Dose: Not Given Levothyroxine Sodium (Synthroid) 0.025 mg PO DAILY [facility] Stop: 12/20/17 08:59 Last Admin: 10/22/17 08:54 Dose: 0.025 mg Lorazepam (Ativan) 0.5 mg PO Q4HR PRN; Protocol PRN Reason: Anxiety Stop: 11/19/17 20:59 Last Admin: 10/21/17 20:57 Dose: 0.5 mg Magnesium Hydroxide (Milk Of Magnesia) 30 ml PO HS PRN PRN Reason: Constipation Pantoprazole Sodium (Protonix) 40 mg PO DAILY [facility] Stop: 12/20/17 08:59 Last Admin: 10/22/17 08:54 Dose: 40 mg Quetiapine Fumarate (Seroquel) 50 mg PO Q12HR [facility]; Protocol Stop: 12/21/17 08:59 Last Admin: 10/22/17 21:52 Dose: 50 mg Zolpidem Tartrate (Ambien) 5 mg PO HS PRN PRN Reason: Insomnia Stop: 12/19/17 22:32 Last Admin: 10/22/17 21:52 Dose: 5 mg General: Alert, Oriented x3, No acute distress HEENT: Atraumatic, PERRLA, EOMI Neck: Supple, no JVD, no Thyromegaly Cardiovascular: Regular rate, Normal S1, Normal S2 Lungs: Clear to auscultation Abdomen: Bowel sounds, Soft Extremities: no Clubbing, no Cyanosis, no Edema Neurological: Normal gait, Normal speech Skin: no Rash Assessment/Plan - Assessment Assessment: cellulitis to abdomen Psychosis Agitation Leukocytosis Hypokalemia HTN hyponatremia Dyslipidemia Dementia Depression Schizophrenia Bipolar - Plan Plan: admit to [facility] repeat CBC, CMP continue oral antibiotics.
[2017-10-23] MEDS: Ferrous Sulfate 325 MG TAB PO SCH ×2 (09:11→16:45)
[2017-10-23] MEDS: Hydrocodone/APAP 5mg/325mg Tab PO SCH (09:11)
[2017-10-23] MEDS: Multivitamin w/ Minerals Tab PO SCH (09:11)
[2017-10-23] MEDS: Levothyroxine 0.025 Mg Tab PO SCH (09:11)
[2017-10-23] MEDS: Pantoprazole 40 mg EC Tab PO SCH (09:12)
[2017-10-23] MEDS: Diclofenac 75 mg Tab PO SCH ×2 (09:14→16:46)
--- NOTE | 2017-10-23 16:38 | Progress Notes ---
DATE: SUBJECTIVE: Chart reviewed and the patient interviewed. Also discussed the patient's condition with the staff and reviewed records and labs. The patient is still agitated and he is still aggressive. The patient also still has difficulty following command. The patient also denies suicidal or homicidal ideations. He is in angry and in irritable mood and is still aggressive and with hopeless and helpless feelings. ASSESSMENT: The patient still can be dangerous to others. TREATMENT PLAN: We will continue monitoring his behavior and his condition closely. Also, we will increase Seroquel to 50 mg twice a day and we will continue to follow his medications and his condition closely. [facility]# [id number]
--- NOTE | 2017-10-23 21:06 | Progress Notes ---
DATE: 10/23/2017 SUBJECTIVE: Chart reviewed and the patient interviewed. Also discussed the patient's condition with the staff and reviewed records and labs. The patient continued to be selectively mute. The patient also continued to be suspicious and paranoid. The patient also has difficulty following staff directions, but slightly easier than before. The patient also still has episodes of agitation and aggression, but also seems to be less than before. Otherwise, the patient is compliant with taking his medications. The patient started on Seroquel and the dose was increased yesterday to 50 mg twice a day, which seems to be helping the patient slightly and the patient is less agitated and less irritable. We will continue same dose and will continue working on his agitation and follow up closely. JOB# [id number]
--- NOTE | 2017-10-24 05:50 | General Progress Note ---
Subjective - Review of Systems Service Date: 10/24/17 Subjective: T 97.3 P 48 BP 108/55 R 20 Objective - Results Result Diagrams: 10/21/17 08:40 10/21/17 08:40 Recent Labs: Laboratory Last Values WBC 8.9 Th/cmm (4.8-10.8) D 10/21/17 08:40 RBC 4.82 Mil/cmm (4.30-5.70) 10/21/17 08:40 Hgb 15.6 gm/dL (12-16) 10/21/17 08:40 Hct 46.7 % (41.0-60) 10/21/17 08:40 MCV 96.8 fl (80-99) 10/21/17 08:40 MCH 32.3 pg (26.0-30.0) H 10/21/17 08:40 MCHC Differential 33.4 pg (28.0-36.0) 10/21/17 08:40 RDW 12.2 % (11.5-20.0) 10/21/17 08:40 Plt Count 240 Th/cmm (150-400) 10/21/17 08:40 MPV 7.6 fl 10/21/17 08:40 Neutrophils % 72.5 % (40.0-80.0) 10/21/17 08:40 Lymphocytes % 21.0 % (20.0-50.0) 10/21/17 08:40 Monocytes % 5.3 % (2.0-10.0) 10/21/17 08:40 Eosinophils % 0.6 % (0.0-5.0) 10/21/17 08:40 Basophils % 0.6 % (0.0-2.0) 10/21/17 08:40 Sodium 135 mEq/L (136-145) L 10/21/17 08:40 Potassium 3.7 mEq/L (3.5-5.1) 10/21/17 08:40 Chloride 105 mEq/L (98-107) 10/21/17 08:40 Carbon Dioxide 24.0 mEq/L (21.0-31.0) 10/21/17 08:40 Anion Gap 9.7 (7.0-16.0) 10/21/17 08:40 BUN 22 mg/dL (7-25) 10/21/17 08:40 Creatinine 0.8 mg/dL (0.7-1.3) 10/21/17 08:40 Est GFR ( Amer) > 60.0 ml/min (>90) 10/21/17 08:40 Est GFR (Non-Af Amer) > 60.0 ml/min 10/21/17 08:40 BUN/Creatinine Ratio 27.5 10/21/17 08:40 Glucose 137 mg/dL (70-105) H 10/21/17 08:40 POC Glucose 144 MG/DL (70 - 105) H 10/23/17 20:13 Hemoglobin A1c % 5.1 % (4.0-6.0) 10/20/17 17:00 Whole Bld Lactic Acid 1.09 mmol/L (0.60-1.99) 10/20/17 17:45 Calcium 9.6 mg/dL (8.6-10.3) 10/21/17 08:40 Total Bilirubin 0.5 mg/dL (0.3-1.0) 10/21/17 08:40 AST 36 U/L (13-39) 10/21/17 08:40 ALT 20 U/L (7-52) 10/21/17 08:40 Alkaline Phosphatase 80 U/L (34-104) 10/21/17 08:40 Troponin I 0.02 ng/mL (0.01-0.05) 10/20/17 17:00 Total Protein 7.6 gm/dL (6.0-8.3) 10/21/17 08:40 Albumin 4.5 gm/dL (4.2-5.5) 10/21/17 08:40 Globulin 3.1 gm/dL 10/21/17 08:40 Albumin/Globulin Ratio 1.5 (1.0-1.8) 10/21/17 08:40 Triglycerides 241 mg/dL (<150) H 10/20/17 17:00 Cholesterol 138 mg/dL (<200) 10/20/17 17:00 LDL Cholesterol Direct 101 mg/dL (75-193) 10/20/17 17:00 HDL Cholesterol 24 mg/dL (23-92) 10/20/17 17:00 TSH 1.35 uIU/ml (0.34-5.60) 10/20/17 17:00 Urine Source CLEAN C 10/20/17 19:00 Urine Color YELLOW 10/20/17 19:00 Urine Clarity CLEAR (CLEAR) 10/20/17 19:00 Urine pH 6.5 (4.6 - 8.0) 10/20/17 19:00 Ur Specific [place] 1.025 (1.005-1.030) 10/20/17 19:00 Urine Protein TRACE mg/dL (NEGATIVE) 10/20/17 19:00 Urine Glucose (UA) NEGATIVE mg/dL (NEGATIVE) 10/20/17 19:00 Urine Ketones TRACE mg/dL (NEGATIVE) 10/20/17 19:00 Urine Blood NEGATIVE (NEGATIVE) 10/20/17 19:00 Urine Nitrate NEGATIVE (NEGATIVE) 10/20/17 19:00 Urine Bilirubin NEGATIVE (NEGATIVE) 10/20/17 19:00 Urine Urobilinogen 1.0 E.U./dL (0.2 - 1.0) 10/20/17 19:00 Ur Leukocyte Esterase NEGATIVE (NEGATIVE) 10/20/17 19:00 Urine RBC NONE SEEN /hpf (0-5) 10/20/17 19:00 Urine WBC 0-2 /hpf (0-5) 10/20/17 19:00 Ur Epithelial Cells NONE SEEN /lpf (FEW) 10/20/17 19:00 Calcium Oxalate Crystal FEW /hpf 10/20/17 19:00 Urine Bacteria NONE SEEN /hpf (NONE SEEN) 10/20/17 19:00 Urine Mucus MODERATE /lpf (FEW) 10/20/17 19:00 Salicylates < 25.0 mg/L (30.0-100.0) L 10/20/17 17:00 Urine Opiates Screen NEGATIVE (NEGATIVE) 10/20/17 19:00 Urine Methadone Screen NEGATIVE (NEGATIVE) 10/20/17 19:00 Acetaminophen < 10.0 ug/mL (10.0-30.0) L 10/20/17 17:00 Ur Barbiturates Screen NEGATIVE (NEGATIVE) 10/20/17 19:00 Ur Tricyclics Screen NEGATIVE (NEGATIVE) 10/20/17 19:00 Ur Phencyclidine Scrn NEGATIVE (NEGATIVE) 10/20/17 19:00 Amphetamines Screen NEGATIVE (NEGATIVE) 10/20/17 19:00 U Methamphetamines Scrn NEGATIVE (NEGATIVE) 10/20/17 19:00 U Benzodiazepines Scrn NEGATIVE (NEGATIVE) 10/20/17 19:00 U Cocaine Metab Screen NEGATIVE (NEGATIVE) 10/20/17 19:00 U Cannabinoids Screen NEGATIVE (NEGATIVE) 10/20/17 19:00 Ethyl Alcohol < 10 mg/dL (0-10) 10/20/17 17:00 RPR NONREACTIVE (NONREACTIVE) 10/20/17 17:00 - Physical Exam Vitals and I&O: Vital Signs Temp 97.3 F 10/23/17 20:00 Pulse 48 10/23/17 20:00 Resp 19 10/23/17 20:00 BP 108/55 10/23/17 20:00 Pulse Ox 98 10/23/17 20:00 Intake & Output 10/23/17 10/23/17 10/24/17 06:59 18:59 06:59 Intake Total 340 Balance 340 Intake: Oral 340 Other: # Voids 1 Active Medications: Current Medications Acetaminophen (Tylenol) 650 mg PO Q4H PRN PRN Reason: Mild Pain / Temp above 100 Stop: 12/19/17 22:32 Acetaminophen/Hydrocodone Bitart ([place] 5mg/325mg) 1 tab PO DAILY [facility] Stop: 12/20/17 08:59 Last Admin: 10/23/17 09:11 Dose: 1 tab Acetaminophen/Hydrocodone Bitart ([place] 5mg/325mg) 1 tab PO Q6H PRN PRN Reason: moderate/severe pain Stop: 12/19/17 22:37 Al Hydrox/Mg Hydrox/Simethicone (Maalox) 30 ml PO Q4H PRN PRN Reason: GI DISTRESS Stop: 12/19/17 22:32 Calcium Carbonate (Os-Filippo) 500 mg PO BID [facility] Stop: 12/20/17 08:59 Last Admin: 10/23/17 16:45 Dose: 500 mg Cephalexin Monohydrate (Keflex) 500 mg PO QID [facility] Stop: 12/20/17 08:59 Last Admin: 10/23/17 20:20 Dose: 500 mg Diclofenac Sodium (Voltaren) 75 mg PO BID [facility] Stop: 12/20/17 08:59 Last Admin: 10/23/17 16:46 Dose: Not Given Ferrous Sulfate (Iron) 325 mg PO BID [facility] Stop: 12/20/17 08:59 Last Admin: 10/23/17 16:45 Dose: 325 mg Insulin Aspart (Novolog Insulin Sliding Scale) 0 units SUBQ ACHS [facility]; Protocol Stop: 12/20/17 11:29 Last Admin: 10/23/17 21:17 Dose: Not Given Levothyroxine Sodium (Synthroid) 0.025 mg PO DAILY [facility] Stop: 12/20/17 08:59 Last Admin: 10/23/17 09:11 Dose: 0.025 mg Lorazepam (Ativan) 0.5 mg PO Q4HR PRN; Protocol PRN Reason: Anxiety Stop: 11/19/17 20:59 Last Admin: 10/23/17 23:02 Dose: 0.5 mg Magnesium Hydroxide (Milk Of Magnesia) 30 ml PO HS PRN PRN Reason: Constipation Pantoprazole Sodium (Protonix) 40 mg PO DAILY [facility] Stop: 12/20/17 08:59 Last Admin: 10/23/17 09:12 Dose: 40 mg Quetiapine Fumarate (Seroquel) 50 mg PO Q12HR [facility]; Protocol Stop: 12/21/17 08:59 Last Admin: 10/23/17 21:18 Dose: 50 mg Zolpidem Tartrate (Ambien) 5 mg PO HS PRN PRN Reason: Insomnia Stop: 12/19/17 22:32 Last Admin: 10/23/17 21:19 Dose: 5 mg General: Alert, Oriented x3, No acute distress HEENT: Atraumatic, PERRLA, EOMI Neck: Supple, no JVD, no Thyromegaly Cardiovascular: Regular rate, Normal S1, Normal S2 Lungs: Clear to auscultation Abdomen: Bowel sounds, Soft Extremities: no Clubbing, no Cyanosis, no Edema Neurological: Normal gait, Normal speech Skin: no Rash Assessment/Plan - Assessment Assessment: cellulitis to abdomen Psychosis Agitation Leukocytosis Hypokalemia HTN hyponatremia Dyslipidemia Dementia Depression Schizophrenia Bipolar - Plan Plan: admit to [facility] continue current medication Nutritional Asmnt/Malnutr-PDOC - Dietary Evaluation Malnutrition Findings (Please click <Entered> for more info): Nutritional Asmnt/Malnutrition Start: 10/23/17 14: 56 Text: Status: Complete Freq: Protocol: Document 10/23/17 14:56 CHARBELG (Rec: 10/23/17 15:19 [id number]) Nutritional Asmnt/Malnutrition Patient General Information Nutritional Screening Low Risk Consult Diagnosis psychosis Pertinent Medical Hx/Surgical Hx HTN, hyperlipidemia, demtnia, bipolar, depression, psychosis , schizophrenia Subjective Information Consult received for right inguinal wound. Pt seen lying in bed at time of visit. Pt reported good appetite. Observed pt consumed 100% of lunch. Per EMR, PO intake 100% of meals. Current Diet Order/ Nutrition Support regular Pertinent Medications os-filippo, iron, novolog, synthroid, protoinix, seroquel Pertinent Labs 10/20 K 3.4, glucose 143, A1c 5 .1 10/21 Na 135, K 3.7 (improved), glucose 137, POC 105-113 10/22-10/23 POC 93-131 Nutritional Hx/Data Height 1.75 m Height (Calculated Centimeters) 175.3 Current Weight (lbs) 81.647 kg Weight (Calculated Kilograms) 81.6 Weight (Calculated Grams) 15726.6 Superior Body Weight 160 Body Mass Index (BMI) 26.6 Weight Status Overweight GI Symptoms GI Symptoms None Last BM none Difficult in: None Skin Integrity/Comment: woundl on left groin Current %PO Good (75-100%) Estimated Nutritional Goals Calories/Kcals/Kg 25-30 Kcals Calculated 5460-0355 Protein g/k Protein Calculated 73 Fluid: ml 1825-2190ml (1ml/kcal) Nutritional Problem No current Nutrition Prob Problem N/A Intervention/Recommendation Comments 1. Continue with regular diet as ordered. Monitor glucose level. 2. Monitor PO intake, wt, labs and skin integrity 3. F/U as low risk in 7 days, 10/30 Expected Outcomes/Goals Expected Outcomes/Goals 1. PO intake continue to meet at least 75% of nutritional needs. 2. Wt stability, skin to remain intact, labs to approach WNL.
[2017-10-24] MEDS: INSULIN ASPART SLIDING SCALE 100 UNITS/ML UNIT SUBQ SCH ×4 (06:35→20:04)
[2017-10-24] MEDS: Hydrocodone/APAP 5mg/325mg Tab PO SCH (09:32)
[2017-10-24] MEDS: Pantoprazole 40 mg EC Tab PO SCH (09:32)
[2017-10-24] MEDS: Diclofenac 75 mg Tab PO SCH ×2 (09:32→17:09)
[2017-10-24] MEDS: Ferrous Sulfate 325 MG TAB PO SCH ×2 (09:32→17:10)
[2017-10-24] MEDS: Levothyroxine 0.025 Mg Tab PO SCH (09:32)
[2017-10-24] MEDS: Multivitamin w/ Minerals Tab PO SCH (09:32)
--- NOTE | 2017-10-24 15:28 | Progress Notes ---
DATE: SUBJECTIVE: Chart reviewed and the patient interviewed. Also discussed the patient's condition with the staff and reviewed records and labs. The patient continued to be actively hallucinating and he is still restless and in irritable mood. The patient also is still suspicious and he needs lots of redirections. The patient also is selectively mute. He also is still having episodes of irritability. Otherwise, the patient is compliant with taking his medications with no side effects of medications. ASSESSMENT: The patient is still psychotic. TREATMENT PLAN: Continue monitoring his behavior and his condition closely. Also, continue to evaluate the use of psychotropic medications and work on behavioral modification and will continue to follow up. JOB# [id number]
--- NOTE | 2017-10-25 05:35 | General Progress Note ---
Subjective - Review of Systems Service Date: 10/25/17 Subjective: T 98.0 P 78 BP 110/62 R 20 Objective - Results Result Diagrams: 10/21/17 08:40 10/21/17 08:40 Recent Labs: Laboratory Last Values WBC 8.9 Th/cmm (4.8-10.8) D 10/21/17 08:40 RBC 4.82 Mil/cmm (4.30-5.70) 10/21/17 08:40 Hgb 15.6 gm/dL (12-16) 10/21/17 08:40 Hct 46.7 % (41.0-60) 10/21/17 08:40 MCV 96.8 fl (80-99) 10/21/17 08:40 MCH 32.3 pg (26.0-30.0) H 10/21/17 08:40 MCHC Differential 33.4 pg (28.0-36.0) 10/21/17 08:40 RDW 12.2 % (11.5-20.0) 10/21/17 08:40 Plt Count 240 Th/cmm (150-400) 10/21/17 08:40 MPV 7.6 fl 10/21/17 08:40 Neutrophils % 72.5 % (40.0-80.0) 10/21/17 08:40 Lymphocytes % 21.0 % (20.0-50.0) 10/21/17 08:40 Monocytes % 5.3 % (2.0-10.0) 10/21/17 08:40 Eosinophils % 0.6 % (0.0-5.0) 10/21/17 08:40 Basophils % 0.6 % (0.0-2.0) 10/21/17 08:40 Sodium 135 mEq/L (136-145) L 10/21/17 08:40 Potassium 3.7 mEq/L (3.5-5.1) 10/21/17 08:40 Chloride 105 mEq/L (98-107) 10/21/17 08:40 Carbon Dioxide 24.0 mEq/L (21.0-31.0) 10/21/17 08:40 Anion Gap 9.7 (7.0-16.0) 10/21/17 08:40 BUN 22 mg/dL (7-25) 10/21/17 08:40 Creatinine 0.8 mg/dL (0.7-1.3) 10/21/17 08:40 Est GFR ( Amer) > 60.0 ml/min (>90) 10/21/17 08:40 Est GFR (Non-Af Amer) > 60.0 ml/min 10/21/17 08:40 BUN/Creatinine Ratio 27.5 10/21/17 08:40 Glucose 137 mg/dL (70-105) H 10/21/17 08:40 POC Glucose 102 MG/DL (70 - 105) 10/24/17 20:01 Hemoglobin A1c % 5.1 % (4.0-6.0) 10/20/17 17:00 Whole Bld Lactic Acid 1.09 mmol/L (0.60-1.99) 10/20/17 17:45 Calcium 9.6 mg/dL (8.6-10.3) 10/21/17 08:40 Total Bilirubin 0.5 mg/dL (0.3-1.0) 10/21/17 08:40 AST 36 U/L (13-39) 10/21/17 08:40 ALT 20 U/L (7-52) 10/21/17 08:40 Alkaline Phosphatase 80 U/L (34-104) 10/21/17 08:40 Troponin I 0.02 ng/mL (0.01-0.05) 10/20/17 17:00 Total Protein 7.6 gm/dL (6.0-8.3) 10/21/17 08:40 Albumin 4.5 gm/dL (4.2-5.5) 10/21/17 08:40 Globulin 3.1 gm/dL 10/21/17 08:40 Albumin/Globulin Ratio 1.5 (1.0-1.8) 10/21/17 08:40 Triglycerides 241 mg/dL (<150) H 10/20/17 17:00 Cholesterol 138 mg/dL (<200) 10/20/17 17:00 LDL Cholesterol Direct 101 mg/dL (75-193) 10/20/17 17:00 HDL Cholesterol 24 mg/dL (23-92) 10/20/17 17:00 TSH 1.35 uIU/ml (0.34-5.60) 10/20/17 17:00 Urine Source CLEAN C 10/20/17 19:00 Urine Color YELLOW 10/20/17 19:00 Urine Clarity CLEAR (CLEAR) 10/20/17 19:00 Urine pH 6.5 (4.6 - 8.0) 10/20/17 19:00 Ur Specific [place] 1.025 (1.005-1.030) 10/20/17 19:00 Urine Protein TRACE mg/dL (NEGATIVE) 10/20/17 19:00 Urine Glucose (UA) NEGATIVE mg/dL (NEGATIVE) 10/20/17 19:00 Urine Ketones TRACE mg/dL (NEGATIVE) 10/20/17 19:00 Urine Blood NEGATIVE (NEGATIVE) 10/20/17 19:00 Urine Nitrate NEGATIVE (NEGATIVE) 10/20/17 19:00 Urine Bilirubin NEGATIVE (NEGATIVE) 10/20/17 19:00 Urine Urobilinogen 1.0 E.U./dL (0.2 - 1.0) 10/20/17 19:00 Ur Leukocyte Esterase NEGATIVE (NEGATIVE) 10/20/17 19:00 Urine RBC NONE SEEN /hpf (0-5) 10/20/17 19:00 Urine WBC 0-2 /hpf (0-5) 10/20/17 19:00 Ur Epithelial Cells NONE SEEN /lpf (FEW) 10/20/17 19:00 Calcium Oxalate Crystal FEW /hpf 10/20/17 19:00 Urine Bacteria NONE SEEN /hpf (NONE SEEN) 10/20/17 19:00 Urine Mucus MODERATE /lpf (FEW) 10/20/17 19:00 Salicylates < 25.0 mg/L (30.0-100.0) L 10/20/17 17:00 Urine Opiates Screen NEGATIVE (NEGATIVE) 10/20/17 19:00 Urine Methadone Screen NEGATIVE (NEGATIVE) 10/20/17 19:00 Acetaminophen < 10.0 ug/mL (10.0-30.0) L 10/20/17 17:00 Ur Barbiturates Screen NEGATIVE (NEGATIVE) 10/20/17 19:00 Ur Tricyclics Screen NEGATIVE (NEGATIVE) 10/20/17 19:00 Ur Phencyclidine Scrn NEGATIVE (NEGATIVE) 10/20/17 19:00 Amphetamines Screen NEGATIVE (NEGATIVE) 10/20/17 19:00 U Methamphetamines Scrn NEGATIVE (NEGATIVE) 10/20/17 19:00 U Benzodiazepines Scrn NEGATIVE (NEGATIVE) 10/20/17 19:00 U Cocaine Metab Screen NEGATIVE (NEGATIVE) 10/20/17 19:00 U Cannabinoids Screen NEGATIVE (NEGATIVE) 10/20/17 19:00 Ethyl Alcohol < 10 mg/dL (0-10) 10/20/17 17:00 RPR NONREACTIVE (NONREACTIVE) 10/20/17 17:00 - Physical Exam Vitals and I&O: Vital Signs Temp 98 F 10/24/17 15:13 Pulse 78 10/24/17 15:13 Resp 19 10/24/17 20:00 BP 110/62 10/24/17 15:13 Pulse Ox 98 10/24/17 15:13 Intake & Output 10/24/17 10/24/17 10/25/17 06:59 18:59 06:59 Intake Total 580 1340 Balance 580 1340 Intake: Oral 580 1340 Other: # Voids 2 4 # Bowel Movements 2 Active Medications: Current Medications Acetaminophen (Tylenol) 650 mg PO Q4H PRN PRN Reason: Mild Pain / Temp above 100 Stop: 12/19/17 22:32 Acetaminophen/Hydrocodone Bitart ([place] 5mg/325mg) 1 tab PO DAILY [facility] Stop: 12/20/17 08:59 Last Admin: 10/24/17 09:32 Dose: Not Given Acetaminophen/Hydrocodone Bitart ([place] 5mg/325mg) 1 tab PO Q6H PRN PRN Reason: moderate/severe pain Stop: 12/19/17 22:37 Al Hydrox/Mg Hydrox/Simethicone (Maalox) 30 ml PO Q4H PRN PRN Reason: GI DISTRESS Stop: 12/19/17 22:32 Calcium Carbonate (Os-Filippo) 500 mg PO BID [facility] Stop: 12/20/17 08:59 Last Admin: 10/24/17 17:09 Dose: 500 mg Cephalexin Monohydrate (Keflex) 500 mg PO QID [facility] Stop: 12/20/17 08:59 Last Admin: 10/24/17 21:00 Dose: 500 mg Diclofenac Sodium (Voltaren) 75 mg PO BID [facility] Stop: 12/20/17 08:59 Last Admin: 10/24/17 17:09 Dose: 75 mg Ferrous Sulfate (Iron) 325 mg PO BID [facility] Stop: 12/20/17 08:59 Last Admin: 10/24/17 17:10 Dose: 325 mg Insulin Aspart (Novolog Insulin Sliding Scale) 0 units SUBQ ACHS [facility]; Protocol Stop: 12/20/17 11:29 Last Admin: 10/24/17 20:04 Dose: Not Given Levothyroxine Sodium (Synthroid) 0.025 mg PO DAILY [facility] Stop: 12/20/17 08:59 Last Admin: 10/24/17 09:32 Dose: 0.025 mg Lorazepam (Ativan) 0.5 mg PO Q4HR PRN; Protocol PRN Reason: Anxiety Stop: 11/19/17 20:59 Last Admin: 10/24/17 09:33 Dose: 0.5 mg Magnesium Hydroxide (Milk Of Magnesia) 30 ml PO HS PRN PRN Reason: Constipation Pantoprazole Sodium (Protonix) 40 mg PO DAILY [facility] Stop: 12/20/17 08:59 Last Admin: 10/24/17 09:32 Dose: 40 mg Quetiapine Fumarate (Seroquel) 50 mg PO Q12HR [facility]; Protocol Stop: 12/21/17 08:59 Last Admin: 10/24/17 21:00 Dose: 50 mg Zolpidem Tartrate (Ambien) 5 mg PO HS PRN PRN Reason: Insomnia Stop: 12/19/17 22:32 Last Admin: 10/24/17 21:00 Dose: 5 mg General: Alert, Oriented x3, No acute distress HEENT: Atraumatic, PERRLA, EOMI Neck: Supple, no JVD, no Thyromegaly Cardiovascular: Regular rate, Normal S1, Normal S2 Lungs: Clear to auscultation Abdomen: Bowel sounds, Soft Extremities: no Clubbing, no Cyanosis, no Edema Neurological: Normal gait, Normal speech Skin: no Rash Assessment/Plan - Assessment Assessment: cellulitis to abdomen Psychosis Agitation Leukocytosis Hypokalemia HTN hyponatremia Dyslipidemia Dementia Depression Schizophrenia Bipolar - Plan Plan: admit to [facility] continue current medication Nutritional Asmnt/Malnutr-PDOC - Dietary Evaluation Malnutrition Findings (Please click <Entered> for more info): Nutritional Asmnt/Malnutrition Start: 10/23/17 14: 56 Text: Status: Complete Freq: Protocol: Document 10/23/17 14:56 CHARBELG (Rec: 10/23/17 15:19 LCHENG [email or web address]) Nutritional Asmnt/Malnutrition Patient General Information Nutritional Screening Low Risk Consult Diagnosis psychosis Pertinent Medical Hx/Surgical Hx HTN, hyperlipidemia, demtnia, bipolar, depression, psychosis , schizophrenia Subjective Information Consult received for right inguinal wound. Pt seen lying in bed at time of visit. Pt reported good appetite. Observed pt consumed 100% of lunch. Per EMR, PO intake 100% of meals. Current Diet Order/ Nutrition Support regular Pertinent Medications os-filippo, iron, novolog, synthroid, protoinix, seroquel Pertinent Labs 10/20 K 3.4, glucose 143, A1c 5 .1 10/21 Na 135, K 3.7 (improved), glucose 137, POC 105-113 10/22-10/23 POC 93-131 Nutritional Hx/Data Height 1.75 m Height (Calculated Centimeters) 175.3 Current Weight (lbs) 81.647 kg Weight (Calculated Kilograms) 81.6 Weight (Calculated Grams) 85491.6 [place] Body Weight 160 Body Mass Index (BMI) 26.6 Weight Status Overweight GI Symptoms GI Symptoms None Last BM none Difficult in: None Skin Integrity/Comment: woundl on left groin Current %PO Good (75-100%) Estimated Nutritional Goals Calories/Kcals/Kg 25-30 Kcals Calculated 5613-0277 Protein g/k Protein Calculated 73 Fluid: ml 1825-2190ml (1ml/kcal) Nutritional Problem No current Nutrition Prob Problem N/A Intervention/Recommendation Comments 1. Continue with regular diet as ordered. Monitor glucose level. 2. Monitor PO intake, wt, labs and skin integrity 3. F/U as low risk in 7 days, 10/30 Expected Outcomes/Goals Expected Outcomes/Goals 1. PO intake continue to meet at least 75% of nutritional needs. 2. Wt stability, skin to remain intact, labs to approach WNL.
[2017-10-25] MEDS: INSULIN ASPART SLIDING SCALE 100 UNITS/ML UNIT SUBQ SCH ×4 (06:35→20:48)
[2017-10-25] MEDS: Levothyroxine 0.025 Mg Tab PO SCH (09:11)
[2017-10-25] MEDS: Diclofenac 75 mg Tab PO SCH ×2 (09:12→16:25)
[2017-10-25] MEDS: Ferrous Sulfate 325 MG TAB PO SCH ×2 (09:12→16:25)
[2017-10-25] MEDS: Multivitamin w/ Minerals Tab PO SCH (09:12)
[2017-10-25] MEDS: Pantoprazole 40 mg EC Tab PO SCH (09:12)
[2017-10-25] MEDS: Hydrocodone/APAP 5mg/325mg Tab PO SCH (09:12)
--- NOTE | 2017-10-26 00:04 | Progress Notes ---
DATE: 10/25/2017 SUBJECTIVE: Chart reviewed and the patient interviewed. Also, discussed the patient's condition with the staff and reviewed records and labs. The patient continued to be confused and is still psychotic. The patient also is still actively responding to stimuli and talking to himself and confused. The patient also is selectively mute. Otherwise, the patient is compliant with taking his medications with no side effects of medications. ASSESSMENT: The patient is less psychotic, but still confused. TREATMENT PLAN: Continue to monitor his behavior and his condition closely. Also, continue adjusting psychotropic medications and followup. JOB# [id number]
[2017-10-26] MEDS: INSULIN ASPART SLIDING SCALE 100 UNITS/ML UNIT SUBQ SCH ×2 (07:01→13:55)
--- NOTE | 2017-10-26 08:21 | General Progress Note ---
Subjective - Review of Systems Service Date: 10/26/17 Subjective: T 96.9 P 72 BP 115/77 R 18 Objective - Results Result Diagrams: 10/21/17 08:40 10/21/17 08:40 Recent Labs: Laboratory Last Values WBC 8.9 Th/cmm (4.8-10.8) D 10/21/17 08:40 RBC 4.82 Mil/cmm (4.30-5.70) 10/21/17 08:40 Hgb 15.6 gm/dL (12-16) 10/21/17 08:40 Hct 46.7 % (41.0-60) 10/21/17 08:40 MCV 96.8 fl (80-99) 10/21/17 08:40 MCH 32.3 pg (26.0-30.0) H 10/21/17 08:40 MCHC Differential 33.4 pg (28.0-36.0) 10/21/17 08:40 RDW 12.2 % (11.5-20.0) 10/21/17 08:40 Plt Count 240 Th/cmm (150-400) 10/21/17 08:40 MPV 7.6 fl 10/21/17 08:40 Neutrophils % 72.5 % (40.0-80.0) 10/21/17 08:40 Lymphocytes % 21.0 % (20.0-50.0) 10/21/17 08:40 Monocytes % 5.3 % (2.0-10.0) 10/21/17 08:40 Eosinophils % 0.6 % (0.0-5.0) 10/21/17 08:40 Basophils % 0.6 % (0.0-2.0) 10/21/17 08:40 Sodium 135 mEq/L (136-145) L 10/21/17 08:40 Potassium 3.7 mEq/L (3.5-5.1) 10/21/17 08:40 Chloride 105 mEq/L (98-107) 10/21/17 08:40 Carbon Dioxide 24.0 mEq/L (21.0-31.0) 10/21/17 08:40 Anion Gap 9.7 (7.0-16.0) 10/21/17 08:40 BUN 22 mg/dL (7-25) 10/21/17 08:40 Creatinine 0.8 mg/dL (0.7-1.3) 10/21/17 08:40 Est GFR ( Amer) > 60.0 ml/min (>90) 10/21/17 08:40 Est GFR (Non-Af Amer) > 60.0 ml/min 10/21/17 08:40 BUN/Creatinine Ratio 27.5 10/21/17 08:40 Glucose 137 mg/dL (70-105) H 10/21/17 08:40 POC Glucose 108 MG/DL (70 - 105) H 10/26/17 06:13 Hemoglobin A1c % 5.1 % (4.0-6.0) 10/20/17 17:00 Whole Bld Lactic Acid 1.09 mmol/L (0.60-1.99) 10/20/17 17:45 Calcium 9.6 mg/dL (8.6-10.3) 10/21/17 08:40 Total Bilirubin 0.5 mg/dL (0.3-1.0) 10/21/17 08:40 AST 36 U/L (13-39) 10/21/17 08:40 ALT 20 U/L (7-52) 10/21/17 08:40 Alkaline Phosphatase 80 U/L (34-104) 10/21/17 08:40 Troponin I 0.02 ng/mL (0.01-0.05) 10/20/17 17:00 Total Protein 7.6 gm/dL (6.0-8.3) 10/21/17 08:40 Albumin 4.5 gm/dL (4.2-5.5) 10/21/17 08:40 Globulin 3.1 gm/dL 10/21/17 08:40 Albumin/Globulin Ratio 1.5 (1.0-1.8) 10/21/17 08:40 Triglycerides 241 mg/dL (<150) H 10/20/17 17:00 Cholesterol 138 mg/dL (<200) 10/20/17 17:00 LDL Cholesterol Direct 101 mg/dL (75-193) 10/20/17 17:00 HDL Cholesterol 24 mg/dL (23-92) 10/20/17 17:00 TSH 1.35 uIU/ml (0.34-5.60) 10/20/17 17:00 Urine Source CLEAN C 10/20/17 19:00 Urine Color YELLOW 10/20/17 19:00 Urine Clarity CLEAR (CLEAR) 10/20/17 19:00 Urine pH 6.5 (4.6 - 8.0) 10/20/17 19:00 Ur Specific [place] 1.025 (1.005-1.030) 10/20/17 19:00 Urine Protein TRACE mg/dL (NEGATIVE) 10/20/17 19:00 Urine Glucose (UA) NEGATIVE mg/dL (NEGATIVE) 10/20/17 19:00 Urine Ketones TRACE mg/dL (NEGATIVE) 10/20/17 19:00 Urine Blood NEGATIVE (NEGATIVE) 10/20/17 19:00 Urine Nitrate NEGATIVE (NEGATIVE) 10/20/17 19:00 Urine Bilirubin NEGATIVE (NEGATIVE) 10/20/17 19:00 Urine Urobilinogen 1.0 E.U./dL (0.2 - 1.0) 10/20/17 19:00 Ur Leukocyte Esterase NEGATIVE (NEGATIVE) 10/20/17 19:00 Urine RBC NONE SEEN /hpf (0-5) 10/20/17 19:00 Urine WBC 0-2 /hpf (0-5) 10/20/17 19:00 Ur Epithelial Cells NONE SEEN /lpf (FEW) 10/20/17 19:00 Calcium Oxalate Crystal FEW /hpf 10/20/17 19:00 Urine Bacteria NONE SEEN /hpf (NONE SEEN) 10/20/17 19:00 Urine Mucus MODERATE /lpf (FEW) 10/20/17 19:00 Salicylates < 25.0 mg/L (30.0-100.0) L 10/20/17 17:00 Urine Opiates Screen NEGATIVE (NEGATIVE) 10/20/17 19:00 Urine Methadone Screen NEGATIVE (NEGATIVE) 10/20/17 19:00 Acetaminophen < 10.0 ug/mL (10.0-30.0) L 10/20/17 17:00 Ur Barbiturates Screen NEGATIVE (NEGATIVE) 10/20/17 19:00 Ur Tricyclics Screen NEGATIVE (NEGATIVE) 10/20/17 19:00 Ur Phencyclidine Scrn NEGATIVE (NEGATIVE) 10/20/17 19:00 Amphetamines Screen NEGATIVE (NEGATIVE) 10/20/17 19:00 U Methamphetamines Scrn NEGATIVE (NEGATIVE) 10/20/17 19:00 U Benzodiazepines Scrn NEGATIVE (NEGATIVE) 10/20/17 19:00 U Cocaine Metab Screen NEGATIVE (NEGATIVE) 10/20/17 19:00 U Cannabinoids Screen NEGATIVE (NEGATIVE) 10/20/17 19:00 Ethyl Alcohol < 10 mg/dL (0-10) 10/20/17 17:00 RPR NONREACTIVE (NONREACTIVE) 10/20/17 17:00 - Physical Exam Vitals and I&O: Vital Signs Temp 96.9 F 10/26/17 04:53 Pulse 72 10/26/17 04:53 Resp 18 10/26/17 04:53 BP 115/77 10/26/17 04:53 Pulse Ox 98 10/26/17 04:53 Intake & Output 10/25/17 10/26/17 10/26/17 18:59 06:59 18:59 Intake Total 480 Balance 480 Intake: Oral 480 Other: # Voids 2 Active Medications: Current Medications Acetaminophen (Tylenol) 650 mg PO Q4H PRN PRN Reason: Mild Pain / Temp above 100 Stop: 12/19/17 22:32 Acetaminophen/Hydrocodone Bitart ([place] 5mg/325mg) 1 tab PO DAILY [facility] Stop: 12/20/17 08:59 Last Admin: 10/25/17 09:12 Dose: 1 tab Acetaminophen/Hydrocodone Bitart ([place] 5mg/325mg) 1 tab PO Q6H PRN PRN Reason: moderate/severe pain Stop: 12/19/17 22:37 Al Hydrox/Mg Hydrox/Simethicone (Maalox) 30 ml PO Q4H PRN PRN Reason: GI DISTRESS Stop: 12/19/17 22:32 Calcium Carbonate (Os-Filippo) 500 mg PO BID [facility] Stop: 12/20/17 08:59 Last Admin: 10/25/17 16:25 Dose: 500 mg Cephalexin Monohydrate (Keflex) 500 mg PO QID [facility] Stop: 12/20/17 08:59 Last Admin: 10/25/17 20:47 Dose: 500 mg Diclofenac Sodium (Voltaren) 75 mg PO BID [facility] Stop: 12/20/17 08:59 Last Admin: 10/25/17 16:25 Dose: Not Given Ferrous Sulfate (Iron) 325 mg PO BID [facility] Stop: 12/20/17 08:59 Last Admin: 10/25/17 16:25 Dose: 325 mg Insulin Aspart (Novolog Insulin Sliding Scale) 0 units SUBQ ACHS [facility]; Protocol Stop: 12/20/17 11:29 Last Admin: 10/26/17 07:01 Dose: Not Given Levothyroxine Sodium (Synthroid) 0.025 mg PO DAILY [facility] Stop: 12/20/17 08:59 Last Admin: 10/25/17 09:11 Dose: 0.025 mg Lorazepam (Ativan) 0.5 mg PO Q4HR PRN; Protocol PRN Reason: Anxiety Stop: 11/19/17 20:59 Last Admin: 10/25/17 16:25 Dose: 0.5 mg Magnesium Hydroxide (Milk Of Magnesia) 30 ml PO HS PRN PRN Reason: Constipation Pantoprazole Sodium (Protonix) 40 mg PO DAILY [facility] Stop: 12/20/17 08:59 Last Admin: 10/25/17 09:12 Dose: 40 mg Quetiapine Fumarate (Seroquel) 75 mg PO Q12HR [facility]; Protocol Stop: 12/25/17 08:59 Zolpidem Tartrate (Ambien) 5 mg PO HS PRN PRN Reason: Insomnia Stop: 12/19/17 22:32 Last Admin: 10/25/17 20:48 Dose: 5 mg General: Alert, Oriented x3, No acute distress HEENT: Atraumatic, PERRLA, EOMI Neck: Supple, no JVD, no Thyromegaly Cardiovascular: Regular rate, Normal S1, Normal S2 Lungs: Clear to auscultation Abdomen: Bowel sounds, Soft Extremities: no Clubbing, no Cyanosis, no Edema Neurological: Normal gait, Normal speech Skin: no Rash Assessment/Plan - Assessment Assessment: cellulitis to abdomen Psychosis Agitation Leukocytosis Hypokalemia HTN hyponatremia Dyslipidemia Dementia Depression Schizophrenia Bipolar - Plan Plan: admit to [facility] continue current medication Nutritional Asmnt/Malnutr-PDOC - Dietary Evaluation Malnutrition Findings (Please click <Entered> for more info): Nutritional Asmnt/Malnutrition Start: 10/23/17 14: 56 Text: Status: Complete Freq: Protocol: Document 10/23/17 14:56 [email or web address] (Rec: 10/23/17 15:19 EMANUEL [email or web address]) Nutritional Asmnt/Malnutrition Patient General Information Nutritional Screening Low Risk Consult Diagnosis psychosis Pertinent Medical Hx/Surgical Hx HTN, hyperlipidemia, demtnia, bipolar, depression, psychosis , schizophrenia Subjective Information Consult received for right inguinal wound. Pt seen lying in bed at time of visit. Pt reported good appetite. Observed pt consumed 100% of lunch. Per EMR, PO intake 100% of meals. Current Diet Order/ Nutrition Support regular Pertinent Medications os-filippo, iron, novolog, synthroid, protoinix, seroquel Pertinent Labs 10/20 K 3.4, glucose 143, A1c 5 .1 10/21 Na 135, K 3.7 (improved), glucose 137, POC 105-113 10/22-10/23 POC 93-131 Nutritional Hx/Data Height 1.75 m Height (Calculated Centimeters) 175.3 Current Weight (lbs) 81.647 kg Weight (Calculated Kilograms) 81.6 Weight (Calculated Grams) 17110.6 [place] Body Weight 160 Body Mass Index (BMI) 26.6 Weight Status Overweight GI Symptoms GI Symptoms None Last BM none Difficult in: None Skin Integrity/Comment: woundl on left groin Current %PO Good (75-100%) Estimated Nutritional Goals Calories/Kcals/Kg 25-30 Kcals Calculated 6887-0828 Protein g/k Protein Calculated 73 Fluid: ml 1825-2190ml (1ml/kcal) Nutritional Problem No current Nutrition Prob Problem N/A Intervention/Recommendation Comments 1. Continue with regular diet as ordered. Monitor glucose level. 2. Monitor PO intake, wt, labs and skin integrity 3. F/U as low risk in 7 days, 10/30 Expected Outcomes/Goals Expected Outcomes/Goals 1. PO intake continue to meet at least 75% of nutritional needs. 2. Wt stability, skin to remain intact, labs to approach WNL.
[2017-10-26] MEDS: Diclofenac 75 mg Tab PO SCH (09:43)
[2017-10-26] MEDS: Multivitamin w/ Minerals Tab PO SCH (09:44)
[2017-10-26] MEDS: Pantoprazole 40 mg EC Tab PO SCH (09:44)
[2017-10-26] MEDS: Ferrous Sulfate 325 MG TAB PO SCH (09:44)
[2017-10-26] MEDS: Levothyroxine 0.025 Mg Tab PO SCH (09:44)
[2017-10-26] MEDS: Hydrocodone/APAP 5mg/325mg Tab PO SCH (09:45)
--- NOTE | 2017-10-27 01:50 | Discharge Summary ---
DATE OF DISCHARGE: 10/26/2017 AGE: 57-year-old. SEX: Male. PHYSICIAN: Anil Woods MD, MPH FINAL DIAGNOSIS: PRIMARY DIAGNOSIS: Schizoaffective disorder, bipolar type, severe, with psychotic features. REASON FOR HOSPITALIZATION: The patient was admitted to the hospital from [facility] because of increased agitation and he was trying to run out of the building and also tried to strike out peers and staff and has destructive behavior. HOSPITAL COURSE: The patient continued to be in angry and in irritable mood. The patient also complained to be destructive and was extremely agitated and in irritable mood. The patient was started on Seroquel and the dose adjusted to 75 mg twice a day. Gradually, the patient's affect is brighter. The patient was calmer and less irritable and less agitated. He also was compliant with taking his medications. The patient was discharged back to [facility]. PHYSICAL EXAMINATION: Shows the patient has insulin-dependent diabetes. No major medical problems while in the hospital. LABORATORY AND DIAGNOSTIC DATA: No major abnormal labs. EXPECTED OUTCOME AFTER DISCHARGE: The patient will have fair prognosis if he continues to take the psychotropic medication and followup with discharge plans. JOB# [id number]
== END 2017-10-26 16:20 | DRG 885 ==
LOC: ER 16:19 → GERO2 20:44
PROVIDERS: ADMIT Psychiatry & Neurology Psychiatry; ATTEND Psychiatry & Neurology Psychiatry
DX: F25.0 Schizoaffective disorder, bipolar type (principal); L03.311 Cellulitis of abdominal wall; E87.1 Hypo-osmolality and hyponatremia; I10 Essential (primary) hypertension; E78.5 Hyperlipidemia, unspecified; F03.90 Unspecified dementia, unspecified severity, without behavioral disturbance, psychotic disturbance, mood disturbance, and anxiety; F29 Unspecified psychosis not due to a substance or known physiological condition; E87.6 Hypokalemia; E11.9 Type 2 diabetes mellitus without complications; Z82.49 Family history of ischemic heart disease and other diseases of the circulatory system
CPT/HCPCS: 36415-UA; 80053-TC; 80061-TC; 80307; 80320-TC; 80329-TC; 81001-TC; 82948-90; 83036-90; 83605; 84443-TC; 84484-TC; 85025-TC; 86592-TC; 87070-90; 87075-90; 87205-90; 90732; 93005; J0696; J1815; Z7610

== ENCOUNTER 2018-04-26 19:45 | Inpatient (IN) | payer MEDICARE, MEDICAID ==
--- NOTE | 2018-04-26 20:16 | ED Physician Chart ---
ED Chief Complaint/HPI - Patient Information Date Seen:: 04/26/18 Time Seen:: 20:00 Chief Complaint:: hallucinations History of Present Illness:: 57 yr old [place] with hallucinations agitations pulling hairs here for geropsych evaluation Allergies:: Allergies Allergy/AdvReac Type Severity Reaction Status Date / Time No Known Allergies Allergy Verified 10/20/17 16:33 ED Review of Systems - Review of Systems General/Constitutional: No fever, No chills, No weight loss, No weakness, No diaphoresis, No edema, No loss of appetite Skin: No skin lesions, No rash, No bruising Head: No headache, No light-headedness Eyes: No loss of vision, No pain, No diplopia ENT: No earache, No nasal drainage, No sore throat, No tinnitus Neck: No neck pain, No swelling, No thyromegaly, No stiffness, No mass noted Cardio Vascular: No chest pain, No palpitations, No PND, No orthopnea, No edema Pulmonary: No SOB, No cough, No sputum, No wheezing GI: No nausea, No vomiting, No diarrhea, No pain, No melena, No hematochezia, No constipation, No hematemesis G/U: No dysuria, No frequency, No hematuria Musculoskeletal: No bone or joint pain, No back pain, No muscle pain Endocrine: No polyuria, No polydipsia Psychiatric: Prior psych history Hematopoietic: No bruising, No lymphadenopathy Allergic/Immuno: No urticaria, No angioedema Neurological: No syncope, No focal symptoms, No weakness, No paresthesia, No headache, No seizure, No dizziness, No confusion, No vertigo ED Past Medical History - Past Medical History Past Medical History: Other (psychosis see list) Family Medical History - Family Member Mother History Unknown: Yes Ethnicity: Unknown Living Status: Unknown ED Septic Shock - . Is Septic Shock (SBP<90, OR Lactate>4 mmol\L) present?: No ED Reassessment (Disposition) - Reassessment Reassessment Condition:: Unchanged - Patient Disposition Discharge/Transfer:: Acute Care w/in this hosp Admitted to:: Med/Surg Condition at Disposition:: Stable
[2018-04-26 20:37] LABS: % MONOCYTES 6.3 % (2.0-10.0); EOSINOPHILE ABSOLUTE 0.2 Th/cmm (0.1-0.4); HEMOGLOBIN 14.7 gm/dL (12-16); MEAN CORPUSCULAR HEMOGLOBIN 32.6 pg (26.0-30.0); MONOCYTE ABSOLUTE 0.5 Th/cmm (0.3-1.0); NEUTROPHILE ABSOLUTE 4.9 Th/cmm (1.8-8.0); WHITE BLOOD COUNT 8.6 Th/cmm (4.8-10.8)
[2018-04-26 20:39] LABS: % BASOPHILS 0.5 % (0.0-2.0); % EOSINOPHILS 1.9 % (0.0-5.0); % LYMPHOCYTES 34.4 % (20.0-50.0); % NEUTROPHILS 56.9 % (40.0-80.0); HEMATOCRIT 43.4 % (41.0-60); MEAN CELL VOLUME 95.9 fl (80-99); MEAN CORPUSCULAR HGB CONC 33.9 pg (28.0-36.0); MEAN PLATELET VOLUME 7.7 fl; PLATELET COUNT 210 Th/cmm (150-400); RED BLOOD COUNT 4.53 Mil/cmm (4.30-5.70); RED CELL DISTRIBUTION WIDTH 12.5 % (11.5-20.0)
[2018-04-26 20:55] LABS: ALB/GLOB RATIO 1.3 (1.0-1.8); ALBUMIN 3.9 gm/dL (4.2-5.5); ALKALINE PHOSPHATASE 82 U/L (34-104); ANION GAP 10.6 (7.0-16.0); BILIRUBIN,TOTAL 0.3 mg/dL (0.3-1.0); BUN - UREA NITROGEN 24 mg/dL (7-25); CALCIUM SERUM 9.3 mg/dL (8.6-10.3); CARBON DIOXIDE 25.1 mEq/L (21.0-31.0); CHLORIDE 106 mEq/L (98-107); CREATININE - SERUM 0.8 mg/dL (0.7-1.3); GFR AFRICAN-AMERICAN > 60.0 ml/min (>90); GFR NON AFRICAN-AMERICAN > 60.0 ml/min; GLUCOSE 111 mg/dL (70-105); POTASSIUM SERUM 3.7 mEq/L (3.5-5.1); SGOT 20 U/L (13-39); SGPT/ALT 14 U/L (7-52); SODIUM SERUM 138 mEq/L (136-145); TOTAL PROTEIN,SERUM 6.9 gm/dL (6.0-8.3)
[2018-04-26 22:31] VITALS: BP 109/71
[2018-04-26] MEDS ORDERED: Hydrocodone/APAP 5mg/325mg Tab PO PRN ×2 (23:26→23:51)
[2018-04-27] MEDS: Levothyroxine 0.025 Mg Tab PO SCH (06:44)
[2018-04-27] MEDS: Pantoprazole 40 mg EC Tab PO SCH (06:44)
[2018-04-27] MEDS: Multivitamin w/ Minerals Tab PO SCH (08:23)
[2018-04-27] MEDS: Benztropine 1 MG TAB PO SCH ×2 (08:24→16:59)
[2018-04-27] MEDS: Ferrous Sulfate 325 MG TAB PO SCH ×2 (08:24→17:00)
[2018-04-27] MEDS: Diclofenac 75 mg Tab PO SCH ×2 (08:24→17:06)
[2018-04-27] MEDS ORDERED: Diclofenac 75 mg Tab PO SCH (09:00)
[2018-04-27] MEDS ORDERED: Pantoprazole 40 mg EC Tab PO SCH (09:00)
[2018-04-27] MEDS ORDERED: Benztropine 1 MG TAB PO SCH ×2 (09:00)
[2018-04-27] MEDS ORDERED: Levothyroxine 0.025 Mg Tab PO SCH (09:00)
[2018-04-27] MEDS ORDERED: Ferrous Sulfate 325 MG TAB PO SCH (09:00)
--- NOTE | 2018-04-27 09:20 | History and Physical ---
History of Present Illness - HPI Chief Complaint: Increased in agitation HPI: Patient was send to ER for evaluation on increased in agitation, patient was pulling his air and screaming. He was send for evaluation and treatment. Vital Signs: Last Vital Signs Temp 97.7 F 04/27/18 06:52 Pulse 88 04/27/18 06:52 Resp 20 04/27/18 06:52 BP 99/57 04/27/18 06:52 Pulse Ox 98 04/27/18 06:52 Past Medical History Cardiovascular: Report: No Pertinent Hx, CAD Pulmonary: Report: No Pertinent Hx [employer]: Report: Dementia GI: Report: No Pertinent Hx Psych: Report: Psychosis Musculoskeletal: Report: No Pertinent Hx, Osteoarthritis Infectious Disease: Report: No Pertinent Hx Renal/: Report: No Pertinent Hx Endocrine: Report: No Pertinent Hx Dermatology: Report: No Pertinent Hx - Past Surgical History Past Surgical History: No pertinent Hx Family Medical History - Family Member Mother History Unknown: Yes Ethnicity: Unknown Living Status: Unknown Social History Smoke: No Alcohol: None Drugs: None Lives: Care Home Domestic Violence: Negative - Medications Home Medications: Home Medication Medication Instructions Recorded Type Acetaminophen [Tylenol] 650 mg PO Q4H PRN tab 10/25/17 Rx Calcium Carbonate [Os-Harshad] 500 mg PO BID tab 10/25/17 Rx Diclofenac [Voltaren] 75 mg PO BID tab 10/25/17 Rx Ferrous Sulfate [Iron] 325 mg PO BID tab 10/25/17 Rx Levothyroxine [Synthroid] 0.025 mg PO DAILY tab 10/25/17 Rx Multivitamin w/ Minerals 1 tab PO DAILY tab 10/25/17 Rx [Theragran M] Pantoprazole [Protonix] 40 mg PO DAILY ect 10/25/17 Rx Benztropine [Cogentin*] 1 mg PO BID 04/26/18 History Hydrocodone/APAP 5mg/325mg [[place] 1 tab PO Q6HR PRN 04/26/18 History 5mg/325mg] Melatonin 6 mg PO HS 04/26/18 History Memantine [Namenda] 50 mg PO BID 04/26/18 History Nutritional Supplement [Resource 90 ml PO TID 04/26/18 History 2.0 237 ml] QUEtiapine Fumarate [SEROquel] 200 mg PO Q12HR 04/26/18 History - Allergies Allergies/Adverse Reactions: Allergies Allergy/AdvReac Type Severity Reaction Status Date / Time No Known Allergies Allergy Verified 04/26/18 20:49 Review of Systems - Review of Systems Constitutional: Report: Weakness Eyes: Report: No Significant ENT: Report: No Significant Respiratory: Report: No Significant Cardiovascular: Report: No Significant Gastrointestinal: Report: No Significant Genitourinary: Report: No Significant Musculoskeletal: Report: No Significant Skin: Report: No Significant Neurological: Report: Weakness Physical Exam - Physical Exam HEENT: Report: Ears Nose Throat within normal limits Neck: Report: Within normal limits Cardiovascular Systems: Report: Regular, Rate and Rhythm Respiratory: Report: Breath Sounds are within normal limits Abdomen: Report: Non-tender to palpation Back: Report: Inspection of back is within normal limits. Extremities: Report: Non-tender to palpation. Skin: Report: Color of skin is within normal limits Neuro/Psych: Report: Disoriented to name time or place - Lab Results All Lab Results last 24 hours: Laboratory Results - last 24 hr 04/26/18 04/26/18 20:24 20:24 WBC 8.6 RBC 4.53 Hgb 14.7 Hct 43.4 MCV 95.9 MCH 32.6 H MCHC Differential 33.9 RDW 12.5 Plt Count 210 MPV 7.7 Neutrophils % 56.9 Lymphocytes % 34.4 Monocytes % 6.3 Eosinophils % 1.9 Basophils % 0.5 Sodium 138 Potassium 3.7 Chloride 106 Carbon Dioxide 25.1 Anion Gap 10.6 BUN 24 Creatinine 0.8 Est GFR ( Amer) > 60.0 Est GFR (Non-Af Amer) > 60.0 BUN/Creatinine Ratio 30.0 Glucose 111 H Calcium 9.3 Total Bilirubin 0.3 AST 20 ALT 14 Alkaline Phosphatase 82 Total Protein 6.9 Albumin 3.9 L Globulin 3.0 Albumin/Globulin Ratio 1.3 - Assessment Assessment: Patient is awake, alert, confused, not oriented. Dx: Increased in agitation - Plan Plan: Patient is under psychiatric care, continue with SNF meds. Will continue to monitor.
[2018-04-27 12:22] LABS: CHOLESTEROL 147 mg/dL (<200); HDL -HIGH DENSITY LIPOPROTEIN 24 mg/dL (23-92); TRIGLYCERIDES 169 mg/dL (<150)
--- NOTE | 2018-04-27 12:58 | History & Physical ---
ADMIT DATE: 04/26/[address] Woods. IDENTIFYING INFORMATION: The patient is a 57-year-old male. CHIEF COMPLAINT: "I am here for treatment." HISTORY OF PRESENT ILLNESS: The patient was referred here because of his agitation. He was pulling his hair and screening. He was sent for evaluation and treatment, unable to tell me the date, where he is, why he is here, very confused, mumbling to himself. He reports sleeps well, eats well. Denies suicidal ideation or homicidal ideation, but he is a poor historian. PAST PSYCHIATRIC HISTORY: The patient is a poor historian, unable to tell me if he is being seen by a psychiatrist before, unpredictable, impulsive, easily agitated. He has been on Seroquel 200 mg twice a day. MEDICAL HISTORY: No known drug allergy. He is anemic. He is on iron and calcium, Voltaren, pain medication, levothyroxine, hypothyroidism and chronic pain. He is also on Namenda 5 mg daily. FAMILY AND SOCIAL HISTORY: Unobtainable. Unable to tell me his age, where he is, why he is here, he believe 28 years of age, unable to tell me how far he went to the school, if he has any legal problem or any substance abuse problem. MENTAL STATUS EXAMINATION: The patient is appropriately dressed, not well groomed. He was in bed, kept his head down, would not look me in the eye or answer questions appropriately. Mumbling to himself. He denies about his age, was 28, unable to give more information, internally preoccupied, easily agitated. He was pulling his hair and was yelling and screaming upon admission, responding to internal stimuli, unable to participate in memory testing or intelligence testing. His insight and judgment is impaired. IMPRESSION: AXIS I: Psychosis, not otherwise specified, dementia. MEDICAL DIAGNOSES: As per medical doctor. INITIAL TREATMENT PLAN: The patient will be continued with Seroquel. We will adjust medication as needed. We will do group therapy, milieu therapy, and individual therapy. ESTIMATED LENGTH OF STAY: 3-7 days. DISCHARGE CRITERIA: Decreasing psychosis, agitation. After discharge, outpatient treatment. JOB# [id number]
[2018-04-27] MEDS ORDERED: Non-Formulary Item 1 EA (Nutritional Supplement [Resource 2.0] 90 ML) PO SCH (14:00)
[2018-04-27] MEDS ORDERED: Non-Formulary Item 1 EA (Melatonin [Melatonin] 6 MG) PO SCH (21:00)
[2018-04-28] MEDS: Levothyroxine 0.025 Mg Tab PO SCH (06:34)
[2018-04-28] MEDS: Pantoprazole 40 mg EC Tab PO SCH (06:34)
[2018-04-28] MEDS: Ferrous Sulfate 325 MG TAB PO SCH ×2 (08:52→17:54)
[2018-04-28] MEDS: Diclofenac 75 mg Tab PO SCH ×2 (09:51→17:54)
[2018-04-28] MEDS: Multivitamin w/ Minerals Tab PO SCH (09:52)
[2018-04-28] MEDS: Benztropine 1 MG TAB PO SCH (09:52)
--- NOTE | 2018-04-28 17:32 | General Progress Note ---
Subjective - Review of Systems Service Date: 04/28/18 Subjective: Patient is confused Objective - Results Result Diagrams: 04/26/18 20:24 04/26/18 20:24 Recent Labs: Laboratory Last Values WBC 8.6 Th/cmm (4.8-10.8) 04/26/18 20:24 RBC 4.53 Mil/cmm (4.30-5.70) 04/26/18 20:24 Hgb 14.7 gm/dL (12-16) 04/26/18 20:24 Hct 43.4 % (41.0-60) 04/26/18 20:24 MCV 95.9 fl (80-99) 04/26/18 20:24 MCH 32.6 pg (26.0-30.0) H 04/26/18 20:24 MCHC Differential 33.9 pg (28.0-36.0) 04/26/18 20:24 RDW 12.5 % (11.5-20.0) 04/26/18 20:24 Plt Count 210 Th/cmm (150-400) 04/26/18 20:24 MPV 7.7 fl 04/26/18 20:24 Neutrophils % 56.9 % (40.0-80.0) 04/26/18 20:24 Lymphocytes % 34.4 % (20.0-50.0) 04/26/18 20:24 Monocytes % 6.3 % (2.0-10.0) 04/26/18 20:24 Eosinophils % 1.9 % (0.0-5.0) 04/26/18 20:24 Basophils % 0.5 % (0.0-2.0) 04/26/18 20:24 Sodium 138 mEq/L (136-145) 04/26/18 20:24 Potassium 3.7 mEq/L (3.5-5.1) 04/26/18 20:24 Chloride 106 mEq/L (98-107) 04/26/18 20:24 Carbon Dioxide 25.1 mEq/L (21.0-31.0) 04/26/18 20:24 Anion Gap 10.6 (7.0-16.0) 04/26/18 20:24 BUN 24 mg/dL (7-25) 04/26/18 20:24 Creatinine 0.8 mg/dL (0.7-1.3) 04/26/18 20:24 Est GFR ( Amer) > 60.0 ml/min (>90) 04/26/18 20:24 Est GFR (Non-Af Amer) > 60.0 ml/min 18 20:24 BUN/Creatinine Ratio 30.0 04/26/18 20:24 Glucose 111 mg/dL (70-105) H 04/26/18 20:24 Calcium 9.3 mg/dL (8.6-10.3) 04/26/18 20:24 Total Bilirubin 0.3 mg/dL (0.3-1.0) 04/26/18 20:24 AST 20 U/L (13-39) 04/26/18 20:24 ALT 14 U/L (7-52) 04/26/18 20:24 Alkaline Phosphatase 82 U/L (34-104) 04/26/18 20:24 Total Protein 6.9 gm/dL (6.0-8.3) 04/26/18 20:24 Albumin 3.9 gm/dL (4.2-5.5) L 04/26/18 20:24 Globulin 3.0 gm/dL 04/26/18 20:24 Albumin/Globulin Ratio 1.3 (1.0-1.8) 04/26/18 20:24 Triglycerides 169 mg/dL (<150) H 04/26/18 20:24 Cholesterol 147 mg/dL (<200) 04/26/18 20:24 LDL Cholesterol Direct 115 mg/dL (75-193) 04/26/18 20:24 HDL Cholesterol 24 mg/dL (23-92) 04/26/18 20:24 - Physical Exam Vitals and I&O: Vital Signs Temp 97.4 F 04/28/18 14:00 Pulse 82 04/28/18 14:00 Resp 18 04/28/18 14:00 BP 109/63 04/28/18 14:00 Pulse Ox 98 04/28/18 14:00 Intake & Output 04/27/18 04/28/18 04/28/18 18:59 06:59 18:59 Intake Total 1200 480 Balance 1200 480 Intake: Oral 1200 480 Other: # Voids 4 3 # Bowel Movements 1 0 Active Medications: Current Medications Acetaminophen (Tylenol) 650 mg PO Q4H PRN PRN Reason: Mild Pain / Temp above 100 Stop: 06/25/18 23:25 Acetaminophen/Hydrocodone Bitart ([employer] 5mg/325mg) 1 tab PO Q6HR PRN PRN Reason: Pain (Moderate) Stop: 06/25/18 23:25 Benztropine Mesylate (Cogentin) 1 mg PO BID [facility] Stop: 06/26/18 08:59 Last Admin: 04/28/18 09:52 Dose: 1 mg Calcium Carbonate (Os-Harshad) 500 mg PO BID [facility] Stop: 06/26/18 08:59 Last Admin: 04/28/18 09:52 Dose: 500 mg Diclofenac Sodium (Voltaren) 75 mg PO BID [facility] Stop: 06/26/18 08:59 Last Admin: 04/28/18 09:51 Dose: 75 mg Ferrous Sulfate (Iron) 325 mg PO BIDWM [facility] Stop: 06/26/18 07:59 Last Admin: 04/28/18 08:52 Dose: 325 mg Levothyroxine Sodium (Synthroid) 0.025 mg PO QDAC [facility] Stop: 06/26/18 07:29 Last Admin: 04/28/18 06:34 Dose: 0.025 mg Lorazepam (Ativan) 0.5 mg PO Q4HR PRN; Protocol PRN Reason: Anxiety Stop: 05/26/18 23:11 Memantine (Namenda) 5 mg PO DAILY [facility] Stop: 06/27/18 09:59 Last Admin: 04/28/18 11:00 Dose: Not Given Pantoprazole Sodium (Protonix) 40 mg PO QDAC [facility] Stop: 06/26/18 07:29 Last Admin: 04/28/18 06:34 Dose: 40 mg Quetiapine Fumarate (Seroquel) 200 mg PO Q12HR ANDI; Protocol Stop: 06/26/18 12:59 Last Admin: 04/28/18 09:51 Dose: 200 mg Zolpidem Tartrate (Ambien) 5 mg PO HSMR1 PRN PRN Reason: Insomnia Stop: 06/25/18 23:11 General: Alert, Other (Confused) HEENT: Atraumatic Neck: Supple Cardiovascular: Regular rate Lungs: Clear to auscultation Abdomen: Bowel sounds, Soft Extremities: Other (No edema) Neurological: Normal gait Skin: Other (Warm and dry) Assessment/Plan - Assessment Assessment: Patient is awake, alert, confused, not oriented. Dx: Increased in agitation - Plan Plan: Patient is under psychiatric care, continue with SNF meds. Will continue to monitor.
--- NOTE | 2018-04-29 04:51 | Progress Notes ---
DATE: 04/28/2018 Chart reviewed and the patient interviewed. Also discussed the patient's condition with the staff and reviewed records and labs. The patient continued to be selectively mute and is still able to answer some questions at times, but other times he does not and just nod his head. Also seems to be depressed and still has unpredictable behavior. The patient also still has mood swings and is having difficulty with his mood and seems at times to be depressed. Otherwise, the patient continued to comply with taking his medications with no side effects of medications. The patient is currently taking Seroquel in a dose of 200 mg twice a day and Namenda 5 mg everyday with no side effects. JOB# [id number]
[2018-04-29] MEDS: Pantoprazole 40 mg EC Tab PO SCH (06:50)
[2018-04-29] MEDS: Levothyroxine 0.025 Mg Tab PO SCH (06:50)
--- NOTE | 2018-04-29 08:45 | Progress Notes ---
DATE: SUBJECTIVE: Chart reviewed and the patient interviewed. Also discussed the patient's condition with the staff and reviewed records and labs. The patient is calm and is quite, but on the other hand, he is easily agitated and is restless. The patient also needs lots of redirection. The patient also is still slightly confused at times when he seems suspicious and paranoid and restless. Otherwise, the patient is compliant with taking his medications with no side effects of Seroquel. ASSESSMENT: The patient is still confused and is still psychotic. TREATMENT PLAN: Continue to monitor his behavior and his condition closely. Also continue Seroquel in a dose of 200 mg twice a day as well increase Namenda to 5 mg twice a day and we will continue to follow up closely. JOB# [id number]
[2018-04-29] MEDS: Benztropine 1 MG TAB PO SCH ×2 (11:01→18:30)
[2018-04-29] MEDS: Multivitamin w/ Minerals Tab PO SCH (11:02)
--- NOTE | 2018-04-29 13:47 | General Progress Note ---
Subjective - Review of Systems Service Date: 04/29/18 Subjective: Patient is confused Objective - Results Result Diagrams: 04/26/18 20:24 04/26/18 20:24 Recent Labs: Laboratory Last Values WBC 8.6 Th/cmm (4.8-10.8) 04/26/18 20:24 RBC 4.53 Mil/cmm (4.30-5.70) 04/26/18 20:24 Hgb 14.7 gm/dL (12-16) 04/26/18 20:24 Hct 43.4 % (41.0-60) 04/26/18 20:24 MCV 95.9 fl (80-99) 04/26/18 20:24 MCH 32.6 pg (26.0-30.0) H 04/26/18 20:24 MCHC Differential 33.9 pg (28.0-36.0) 04/26/18 20:24 RDW 12.5 % (11.5-20.0) 04/26/18 20:24 Plt Count 210 Th/cmm (150-400) 04/26/18 20:24 MPV 7.7 fl 04/26/18 20:24 Neutrophils % 56.9 % (40.0-80.0) 04/26/18 20:24 Lymphocytes % 34.4 % (20.0-50.0) 04/26/18 20:24 Monocytes % 6.3 % (2.0-10.0) 04/26/18 20:24 Eosinophils % 1.9 % (0.0-5.0) 04/26/18 20:24 Basophils % 0.5 % (0.0-2.0) 04/26/18 20:24 Sodium 138 mEq/L (136-145) 04/26/18 20:24 Potassium 3.7 mEq/L (3.5-5.1) 04/26/18 20:24 Chloride 106 mEq/L (98-107) 04/26/18 20:24 Carbon Dioxide 25.1 mEq/L (21.0-31.0) 04/26/18 20:24 Anion Gap 10.6 (7.0-16.0) 04/26/18 20:24 BUN 24 mg/dL (7-25) 04/26/18 20:24 Creatinine 0.8 mg/dL (0.7-1.3) 04/26/18 20:24 Est GFR ( Amer) > 60.0 ml/min (>90) 04/26/18 20:24 Est GFR (Non-Af Amer) > 60.0 ml/min 18 20:24 BUN/Creatinine Ratio 30.0 04/26/18 20:24 Glucose 111 mg/dL (70-105) H 04/26/18 20:24 Calcium 9.3 mg/dL (8.6-10.3) 04/26/18 20:24 Total Bilirubin 0.3 mg/dL (0.3-1.0) 04/26/18 20:24 AST 20 U/L (13-39) 04/26/18 20:24 ALT 14 U/L (7-52) 04/26/18 20:24 Alkaline Phosphatase 82 U/L (34-104) 04/26/18 20:24 Total Protein 6.9 gm/dL (6.0-8.3) 04/26/18 20:24 Albumin 3.9 gm/dL (4.2-5.5) L 04/26/18 20:24 Globulin 3.0 gm/dL 04/26/18 20:24 Albumin/Globulin Ratio 1.3 (1.0-1.8) 04/26/18 20:24 Triglycerides 169 mg/dL (<150) H 04/26/18 20:24 Cholesterol 147 mg/dL (<200) 04/26/18 20:24 LDL Cholesterol Direct 115 mg/dL (75-193) 04/26/18 20:24 HDL Cholesterol 24 mg/dL (23-92) 04/26/18 20:24 - Physical Exam Vitals and I&O: Vital Signs Temp 97.2 F 04/29/18 07:07 Pulse 77 04/29/18 07:07 Resp 20 04/29/18 08:00 BP 117/71 04/29/18 07:07 Pulse Ox 98 04/29/18 07:07 Intake & Output 04/28/18 04/29/18 04/29/18 18:59 06:59 18:59 Intake Total 1000 120 120 Balance 1000 120 120 Intake: Oral 1000 120 120 Other: # Voids 4 1 2 # Bowel Movements 1 Active Medications: Current Medications Acetaminophen (Tylenol) 650 mg PO Q4H PRN PRN Reason: Mild Pain / Temp above 100 Stop: 06/25/18 23:25 Acetaminophen/Hydrocodone Bitart ([place] 5mg/325mg) 1 tab PO Q6HR PRN PRN Reason: Pain (Moderate) Stop: 06/25/18 23:25 Benztropine Mesylate (Cogentin) 1 mg PO BID [facility] Stop: 06/26/18 08:59 Last Admin: 04/29/18 11:01 Dose: 1 mg Calcium Carbonate (Os-Harshad) 500 mg PO BID [facility] Stop: 06/26/18 08:59 Last Admin: 04/29/18 11:02 Dose: 500 mg Diclofenac Sodium (Voltaren) 75 mg PO BID [facility] Stop: 06/26/18 08:59 Last Admin: 04/28/18 17:54 Dose: 75 mg Ferrous Sulfate (Iron) 325 mg PO BIDWM [facility] Stop: 06/26/18 07:59 Last Admin: 04/28/18 17:54 Dose: 325 mg Levothyroxine Sodium (Synthroid) 0.025 mg PO QDAC [facility] Stop: 06/26/18 07:29 Last Admin: 04/29/18 06:50 Dose: 0.025 mg Lorazepam (Ativan) 0.5 mg PO Q4HR PRN; Protocol PRN Reason: Anxiety Stop: 05/26/18 23:11 Memantine (Namenda) 5 mg PO BID [facility] Stop: 06/28/18 08:59 Last Admin: 04/29/18 11:01 Dose: 5 mg Pantoprazole Sodium (Protonix) 40 mg PO QDAC [facility] Stop: 06/26/18 07:29 Last Admin: 04/29/18 06:50 Dose: 40 mg Quetiapine Fumarate (Seroquel) 200 mg PO Q12HR [facility]; Protocol Stop: 06/26/18 12:59 Last Admin: 04/29/18 11:02 Dose: 200 mg Zolpidem Tartrate (Ambien) 5 mg PO HSMR1 PRN PRN Reason: Insomnia Stop: 06/25/18 23:11 General: Alert, Other (Confused) HEENT: Atraumatic Neck: Supple Cardiovascular: Regular rate Lungs: Clear to auscultation Abdomen: Bowel sounds, Soft Extremities: Other (No edema) Neurological: Normal gait Skin: Other (Warm and dry) Assessment/Plan - Assessment Assessment: Patient is awake, alert, confused, not oriented. Dx: Increased in agitation - Plan Plan: Patient is under psychiatric care, continue with SNF meds. Will continue to monitor.
[2018-04-29] MEDS: Diclofenac 75 mg Tab PO SCH ×2 (16:04→18:32)
[2018-04-29] MEDS: Ferrous Sulfate 325 MG TAB PO SCH ×2 (16:04→18:30)
[2018-04-30] MEDS: Pantoprazole 40 mg EC Tab PO SCH (06:58)
[2018-04-30] MEDS: Levothyroxine 0.025 Mg Tab PO SCH (06:59)
--- NOTE | 2018-04-30 09:10 | General Progress Note ---
Subjective - Review of Systems Service Date: 04/30/18 Subjective: Patient is confused Objective - Results Result Diagrams: 04/26/18 20:24 04/26/18 20:24 Recent Labs: Laboratory Last Values WBC 8.6 Th/cmm (4.8-10.8) 04/26/18 20:24 RBC 4.53 Mil/cmm (4.30-5.70) 04/26/18 20:24 Hgb 14.7 gm/dL (12-16) 04/26/18 20:24 Hct 43.4 % (41.0-60) 04/26/18 20:24 MCV 95.9 fl (80-99) 04/26/18 20:24 MCH 32.6 pg (26.0-30.0) H 04/26/18 20:24 MCHC Differential 33.9 pg (28.0-36.0) 04/26/18 20:24 RDW 12.5 % (11.5-20.0) 04/26/18 20:24 Plt Count 210 Th/cmm (150-400) 04/26/18 20:24 MPV 7.7 fl 04/26/18 20:24 Neutrophils % 56.9 % (40.0-80.0) 04/26/18 20:24 Lymphocytes % 34.4 % (20.0-50.0) 04/26/18 20:24 Monocytes % 6.3 % (2.0-10.0) 04/26/18 20:24 Eosinophils % 1.9 % (0.0-5.0) 04/26/18 20:24 Basophils % 0.5 % (0.0-2.0) 04/26/18 20:24 Sodium 138 mEq/L (136-145) 04/26/18 20:24 Potassium 3.7 mEq/L (3.5-5.1) 04/26/18 20:24 Chloride 106 mEq/L (98-107) 04/26/18 20:24 Carbon Dioxide 25.1 mEq/L (21.0-31.0) 04/26/18 20:24 Anion Gap 10.6 (7.0-16.0) 04/26/18 20:24 BUN 24 mg/dL (7-25) 04/26/18 20:24 Creatinine 0.8 mg/dL (0.7-1.3) 04/26/18 20:24 Est GFR ( Amer) > 60.0 ml/min (>90) 04/26/18 20:24 Est GFR (Non-Af Amer) > 60.0 ml/min 04/26/18 20:24 BUN/Creatinine Ratio 30.0 04/26/18 20:24 Glucose 111 mg/dL (70-105) H 04/26/18 20:24 Calcium 9.3 mg/dL (8.6-10.3) 04/26/18 20:24 Total Bilirubin 0.3 mg/dL (0.3-1.0) 04/26/18 20:24 AST 20 U/L (13-39) 04/26/18 20:24 ALT 14 U/L (7-52) 04/26/18 20:24 Alkaline Phosphatase 82 U/L (34-104) 04/26/18 20:24 Total Protein 6.9 gm/dL (6.0-8.3) 04/26/18 20:24 Albumin 3.9 gm/dL (4.2-5.5) L 04/26/18 20:24 Globulin 3.0 gm/dL 04/26/18 20:24 Albumin/Globulin Ratio 1.3 (1.0-1.8) 04/26/18 20:24 Triglycerides 169 mg/dL (<150) H 04/26/18 20:24 Cholesterol 147 mg/dL (<200) 04/26/18 20:24 LDL Cholesterol Direct 115 mg/dL (75-193) 04/26/18 20:24 HDL Cholesterol 24 mg/dL (23-92) 04/26/18 20:24 - Physical Exam Vitals and I&O: Vital Signs Temp 97.8 F 04/30/18 06:36 Pulse 70 04/30/18 06:36 Resp 20 04/30/18 06:36 BP 124/80 04/30/18 06:36 Pulse Ox 98 04/30/18 06:36 Intake & Output 04/29/18 04/30/18 04/30/18 18:59 06:59 18:59 Intake Total 1520 120 Balance 1520 120 Intake: Oral 1520 120 Other: # Voids 4 3 # Bowel Movements 1 Active Medications: Current Medications Acetaminophen (Tylenol) 650 mg PO Q4H PRN PRN Reason: Mild Pain / Temp above 100 Stop: 06/25/18 23:25 Acetaminophen/Hydrocodone Bitart ([place] 5mg/325mg) 1 tab PO Q6HR PRN PRN Reason: Pain (Moderate) Stop: 06/25/18 23:25 Benztropine Mesylate (Cogentin) 1 mg PO BID [facility] Stop: 06/26/18 08:59 Last Admin: 04/29/18 18:30 Dose: 1 mg Calcium Carbonate (Os-Filippo) 500 mg PO BID [facility] Stop: 06/26/18 08:59 Last Admin: 04/29/18 18:31 Dose: 500 mg Diclofenac Sodium (Voltaren) 75 mg PO BID [facility] Stop: 06/26/18 08:59 Last Admin: 04/29/18 18:32 Dose: 75 mg Ferrous Sulfate (Iron) 325 mg PO BIDWM [facility] Stop: 06/26/18 07:59 Last Admin: 04/29/18 18:30 Dose: 325 mg Levothyroxine Sodium (Synthroid) 0.025 mg PO QDAC [facility] Stop: 06/26/18 07:29 Last Admin: 04/30/18 06:59 Dose: 0.025 mg Lorazepam (Ativan) 0.5 mg PO Q4HR PRN; Protocol PRN Reason: Anxiety Stop: 05/26/18 23:11 Memantine (Namenda) 5 mg PO BID [facility] Stop: 06/28/18 08:59 Last Admin: 04/29/18 18:30 Dose: 5 mg Pantoprazole Sodium (Protonix) 40 mg PO QDAC [facility] Stop: 06/26/18 07:29 Last Admin: 04/30/18 06:58 Dose: 40 mg Quetiapine Fumarate (Seroquel) 200 mg PO Q12HR [facility]; Protocol Stop: 06/26/18 12:59 Last Admin: 04/29/18 21:23 Dose: 200 mg Zolpidem Tartrate (Ambien) 5 mg PO HSMR1 PRN PRN Reason: Insomnia Stop: 06/25/18 23:11 General: Alert, Other (Confused) HEENT: Atraumatic Neck: Supple Cardiovascular: Regular rate Lungs: Clear to auscultation Abdomen: Bowel sounds, Soft Extremities: Other (No edema) Neurological: Normal gait Skin: Other (Warm and dry) Assessment/Plan - Assessment Assessment: Patient is awake, alert, confused, not oriented. Dx: Increased in agitation - Plan Plan: Patient is under psychiatric care, continue with SNF meds. Will continue to monitor. Nutritional Asmnt/Malnutr-PDOC - Dietary Evaluation Malnutrition Findings (Please click <Entered> for more info): Nutritional Asmnt/Malnutrition Start: 04/29/18 14: 12 Text: Status: Complete Freq: Protocol: Document 04/29/18 14:12 [email or web address] (Rec: 04/29/18 14:18 [email or web address]-MARIE) Nutritional Asmnt/Malnutrition Patient General Information Nutritional Screening Moderate Risk Diagnosis psychosis nos Pertinent Medical Hx/Surgical Hx dementia, CAD, psychosis, OA Subjective Information Pt is AO x1-2 per nurse note. PO intake is 100% per EMR. Current Diet Order/ Nutrition Support CCHO, fortified foods with meals, ensure Patient / S.O Can't verbalize diet edu Pertinent Medications Os-filippo, ferrous sulfate, synthroid, protonix, seroquel, ambien Pertinent Labs 04/26 glucose 111, alb 3.9, triglycerides 169 Nutritional Hx/Data Height 1.7 m Height (Calculated Centimeters) 170.2 Current Weight (lbs) 77.111 kg Weight (Calculated Kilograms) 77.1 Weight (Calculated Grams) 63667.7 [place] Body Weight 148 Body Mass Index (BMI) 26.6 Weight Status Overweight GI Symptoms GI Symptoms None Last BM 04/28 Difficult in: None Food Allergies No Skin Integrity/Comment: intact, jarret 17 Current %PO Good (75-100%) Estimated Nutritional Goals BEE in Kcals: Using Current wt Calories/Kcals/Kg 23-27 Kcals Calculated 2708-0191 Protein: Using Current wt Protein g/k.8-1 Protein Calculated 61-77 Fluid: ml [id number] (1ml/kcal) Nutritional Problem No current Nutrition Prob Problem N/A Malnutrition Alert Is there a minimum of two criteria No selected? Query Text:Check all the applicable criteria. A minimum of two criteria are recommended for diagnosis of either severe or non-severe malnutrition. Malnutrition Related to Morbid Obesity Malnutrition related to morbid obesity No Intervention/Recommendation Comments 1. Continue with CCHO, fortified food with ensure diet as ordered. Recommend Glucerna shake instead of Ensure enlive to compliant current CCHO diet. LISA Barrera notified. 2. Monitor PO intake, wt, labs and skin integrity 3. F/U as low risk in 7 days, 05/06 Expected Outcomes/Goals Expected Outcomes/Goals Goal: PO intake to meet at least 75% of nutritional needs . Reviewed by Caterina Fenton RD
[2018-04-30] MEDS: Benztropine 1 MG TAB PO SCH ×3 (09:18→16:47)
[2018-04-30] MEDS: Multivitamin w/ Minerals Tab PO SCH (09:18)
[2018-04-30] MEDS: Ferrous Sulfate 325 MG TAB PO SCH ×2 (09:18→18:36)
[2018-04-30] MEDS: Diclofenac 75 mg Tab PO SCH ×2 (09:19→16:48)
[2018-05-01] MEDS: Levothyroxine 0.025 Mg Tab PO SCH (06:56)
[2018-05-01] MEDS: Pantoprazole 40 mg EC Tab PO SCH (06:56)
[2018-05-01] MEDS: Diclofenac 75 mg Tab PO SCH ×2 (08:38→17:01)
[2018-05-01] MEDS: Ferrous Sulfate 325 MG TAB PO SCH ×2 (08:39→17:27)
[2018-05-01] MEDS: Multivitamin w/ Minerals Tab PO SCH (08:39)
[2018-05-01] MEDS: Benztropine 1 MG TAB PO SCH ×2 (08:39→17:26)
--- NOTE | 2018-05-01 12:08 | General Progress Note ---
Subjective - Review of Systems Service Date: 05/01/18 Subjective: Patient is confused Objective - Results Result Diagrams: 04/26/18 20:24 04/26/18 20:24 Recent Labs: Laboratory Last Values WBC 8.6 Th/cmm (4.8-10.8) 04/26/18 20:24 RBC 4.53 Mil/cmm (4.30-5.70) 04/26/18 20:24 Hgb 14.7 gm/dL (12-16) 04/26/18 20:24 Hct 43.4 % (41.0-60) 04/26/18 20:24 MCV 95.9 fl (80-99) 04/26/18 20:24 MCH 32.6 pg (26.0-30.0) H 04/26/18 20:24 MCHC Differential 33.9 pg (28.0-36.0) 04/26/18 20:24 RDW 12.5 % (11.5-20.0) 04/26/18 20:24 Plt Count 210 Th/cmm (150-400) 04/26/18 20:24 MPV 7.7 fl 04/26/18 20:24 Neutrophils % 56.9 % (40.0-80.0) 04/26/18 20:24 Lymphocytes % 34.4 % (20.0-50.0) 04/26/18 20:24 Monocytes % 6.3 % (2.0-10.0) 04/26/18 20:24 Eosinophils % 1.9 % (0.0-5.0) 04/26/18 20:24 Basophils % 0.5 % (0.0-2.0) 04/26/18 20:24 Sodium 138 mEq/L (136-145) 04/26/18 20:24 Potassium 3.7 mEq/L (3.5-5.1) 04/26/18 20:24 Chloride 106 mEq/L (98-107) 04/26/18 20:24 Carbon Dioxide 25.1 mEq/L (21.0-31.0) 04/26/18 20:24 Anion Gap 10.6 (7.0-16.0) 04/26/18 20:24 BUN 24 mg/dL (7-25) 04/26/18 20:24 Creatinine 0.8 mg/dL (0.7-1.3) 04/26/18 20:24 Est GFR ( Amer) > 60.0 ml/min (>90) 04/26/18 20:24 Est GFR (Non-Af Amer) > 60.0 ml/min 18 20:24 BUN/Creatinine Ratio 30.0 04/26/18 20:24 Glucose 111 mg/dL (70-105) H 04/26/18 20:24 Calcium 9.3 mg/dL (8.6-10.3) 04/26/18 20:24 Total Bilirubin 0.3 mg/dL (0.3-1.0) 04/26/18 20:24 AST 20 U/L (13-39) 04/26/18 20:24 ALT 14 U/L (7-52) 04/26/18 20:24 Alkaline Phosphatase 82 U/L (34-104) 04/26/18 20:24 Total Protein 6.9 gm/dL (6.0-8.3) 04/26/18 20:24 Albumin 3.9 gm/dL (4.2-5.5) L 04/26/18 20:24 Globulin 3.0 gm/dL 04/26/18 20:24 Albumin/Globulin Ratio 1.3 (1.0-1.8) 04/26/18 20:24 Triglycerides 169 mg/dL (<150) H 04/26/18 20:24 Cholesterol 147 mg/dL (<200) 04/26/18 20:24 LDL Cholesterol Direct 115 mg/dL (75-193) 04/26/18 20:24 HDL Cholesterol 24 mg/dL (23-92) 04/26/18 20:24 - Physical Exam Vitals and I&O: Vital Signs Temp 98 F 05/01/18 05:44 Pulse 75 05/01/18 05:44 Resp 18 05/01/18 05:44 BP 113/71 05/01/18 05:44 Pulse Ox 98 05/01/18 05:44 Intake & Output 04/30/18 05/01/18 05/01/18 18:59 06:59 18:59 Intake Total 1999 Balance 1999 720 Intake: Oral 1999 Other: # Voids 3 1 # Bowel Movements 1 Active Medications: Current Medications Acetaminophen (Tylenol) 650 mg PO Q4H PRN PRN Reason: Mild Pain / Temp above 100 Stop: 06/25/18 23:25 Acetaminophen/Hydrocodone Bitart ([employer] 5mg/325mg) 1 tab PO Q6HR PRN PRN Reason: Pain (Moderate) Stop: 06/25/18 23:25 Benztropine Mesylate (Cogentin) 1 mg PO BID [facility] Stop: 06/26/18 08:59 Last Admin: 05/01/18 08:39 Dose: 1 mg Calcium Carbonate (Os-Filippo) 500 mg PO BID [facility] Stop: 06/26/18 08:59 Last Admin: 05/01/18 08:39 Dose: 500 mg Diclofenac Sodium (Voltaren) 75 mg PO BID [facility] Stop: 06/26/18 08:59 Last Admin: 05/01/18 08:38 Dose: Not Given Ferrous Sulfate (Iron) 325 mg PO BIDWM [facility] Stop: 06/26/18 07:59 Last Admin: 05/01/18 08:39 Dose: 325 mg Levothyroxine Sodium (Synthroid) 0.025 mg PO QDAC [facility] Stop: 06/26/18 07:29 Last Admin: 05/01/18 06:56 Dose: 0.025 mg Lorazepam (Ativan) 0.5 mg PO Q4HR PRN; Protocol PRN Reason: Anxiety Stop: 05/26/18 23:11 Memantine (Namenda) 5 mg PO BID [facility] Stop: 06/28/18 08:59 Last Admin: 05/01/18 08:39 Dose: 5 mg Pantoprazole Sodium (Protonix) 40 mg PO QDAC [facility] Stop: 06/26/18 07:29 Last Admin: 05/01/18 06:56 Dose: 40 mg Quetiapine Fumarate (Seroquel) 200 mg PO Q12HR [facility]; Protocol Stop: 06/26/18 12:59 Last Admin: 05/01/18 08:38 Dose: 200 mg Zolpidem Tartrate (Ambien) 5 mg PO HSMR1 PRN PRN Reason: Insomnia Stop: 06/25/18 23:11 General: Alert, Other (Confused) HEENT: Atraumatic Neck: Supple Cardiovascular: Regular rate Lungs: Clear to auscultation Abdomen: Bowel sounds, Soft Extremities: Other (No edema) Neurological: Normal gait Skin: Other (Warm and dry) Assessment/Plan - Assessment Assessment: Patient is awake, alert, confused, not oriented. Dx: Increased in agitation. - Plan Plan: Patient is under psychiatric care, continue with SNF meds. Will continue to monitor. Nutritional Asmnt/Malnutr-PDOC - Dietary Evaluation Malnutrition Findings (Please click <Entered> for more info): Nutritional Asmnt/Malnutrition Start: 04/29/18 14: 12 Text: Status: Complete Freq: Protocol: Document 04/29/18 14:12 [email or web address] (Rec: 04/29/18 14:18 [email or web address] ANNE-MARIE) Nutritional Asmnt/Malnutrition Patient General Information Nutritional Screening Moderate Risk Diagnosis psychosis nos Pertinent Medical Hx/Surgical Hx dementia, CAD, psychosis, OA Subjective Information Pt is AO x1-2 per nurse note. PO intake is 100% per EMR. Current Diet Order/ Nutrition Support CCHO, fortified foods with meals, ensure Patient / S.O Can't verbalize diet edu Pertinent Medications Os-filippo, ferrous sulfate, synthroid, protonix, seroquel, ambien Pertinent Labs 04/26 glucose 111, alb 3.9, triglycerides 169 Nutritional Hx/Data Height 1.7 m Height (Calculated Centimeters) 170.2 Current Weight (lbs) 77.111 kg Weight (Calculated Kilograms) 77.1 Weight (Calculated Grams) 82749.7 [place] Body Weight 148 Body Mass Index (BMI) 26.6 Weight Status Overweight GI Symptoms GI Symptoms None Last BM 04/28 Difficult in: None Food Allergies No Skin Integrity/Comment: intact, jarret 17 Current %PO Good (75-100%) Estimated Nutritional Goals BEE in Kcals: Using Current wt Calories/Kcals/Kg 23-27 Kcals Calculated 8784-5679 Protein: Using Current wt Protein g/k.8-1 Protein Calculated 61-77 Fluid: ml 8100-5913 (1ml/kcal) Nutritional Problem No current Nutrition Prob Problem N/A Malnutrition Alert Is there a minimum of two criteria No selected? Query Text:Check all the applicable criteria. A minimum of two criteria are recommended for diagnosis of either severe or non-severe malnutrition. Malnutrition Related to Morbid Obesity Malnutrition related to morbid obesity No Intervention/Recommendation Comments 1. Continue with CCHO, fortified food with ensure diet as ordered. Recommend Glucerna shake instead of Ensure enlive to compliant current [facility] diet. LISA Barrera notified. 2. Monitor PO intake, wt, labs and skin integrity 3. F/U as low risk in 7 days, 05/06 Expected Outcomes/Goals Expected Outcomes/Goals Goal: PO intake to meet at least 75% of nutritional needs . Reviewed by Caterina Fenton RD
[2018-05-02] MEDS: Pantoprazole 40 mg EC Tab PO SCH (06:38)
[2018-05-02] MEDS: Levothyroxine 0.025 Mg Tab PO SCH (06:38)
[2018-05-02] MEDS: Multivitamin w/ Minerals Tab PO SCH (09:18)
[2018-05-02] MEDS: Benztropine 1 MG TAB PO SCH ×2 (09:18→16:33)
[2018-05-02] MEDS: Diclofenac 75 mg Tab PO SCH ×2 (09:19→16:33)
[2018-05-02] MEDS: Ferrous Sulfate 325 MG TAB PO SCH (09:19)
--- NOTE | 2018-05-02 11:50 | Progress Notes ---
DATE: 05/01/2018 The patient was seen and evaluated. The patient's chart reviewed. This is a psychiatric followup covering for Dr. Woods. Overnight nursing staff reported the patient is delusional, disheveled, needing a redirection for simple ADLs, malodorous. IDENTIFYING DATA: This is a 57-year-old male brought in here for agitation. He was pulling his hair and screaming and disorganized. Today on [id number] evaluation, the patient is disorganized, difficulty to articulate, very impulsive and in the middle of the interview, the patient mostly derailed in conversation and disengaged. CURRENT MEDICATIONS: Ativan as needed, Namenda 5 mg p.o. b.i.d., quetiapine 200 mg p.o. b.i.d. ASSESSMENT AND PLAN: The patient is a 57-year-old male who continues to be disorganized, agitated, derails in his thought process, unable to engage in a conversation, disheveled, malodorous and needed redirection for simple ADL. We will continue with the current primary psychiatrist treatment plan and goals and to continue to target the patient's symptoms. JOB# [id number]
--- NOTE | 2018-05-02 12:18 | General Progress Note ---
Subjective - Review of Systems Service Date: 05/02/18 Subjective: Patient is confused Objective - Results Result Diagrams: 04/26/18 20:24 04/26/18 20:24 Recent Labs: Laboratory Last Values WBC 8.6 Th/cmm (4.8-10.8) 04/26/18 20:24 RBC 4.53 Mil/cmm (4.30-5.70) 04/26/18 20:24 Hgb 14.7 gm/dL (12-16) 04/26/18 20:24 Hct 43.4 % (41.0-60) 04/26/18 20:24 MCV 95.9 fl (80-99) 04/26/18 20:24 MCH 32.6 pg (26.0-30.0) H 04/26/18 20:24 MCHC Differential 33.9 pg (28.0-36.0) 04/26/18 20:24 RDW 12.5 % (11.5-20.0) 04/26/18 20:24 Plt Count 210 Th/cmm (150-400) 04/26/18 20:24 MPV 7.7 fl 04/26/18 20:24 Neutrophils % 56.9 % (40.0-80.0) 04/26/18 20:24 Lymphocytes % 34.4 % (20.0-50.0) 04/26/18 20:24 Monocytes % 6.3 % (2.0-10.0) 04/26/18 20:24 Eosinophils % 1.9 % (0.0-5.0) 04/26/18 20:24 Basophils % 0.5 % (0.0-2.0) 04/26/18 20:24 Sodium 138 mEq/L (136-145) 04/26/18 20:24 Potassium 3.7 mEq/L (3.5-5.1) 04/26/18 20:24 Chloride 106 mEq/L (98-107) 04/26/18 20:24 Carbon Dioxide 25.1 mEq/L (21.0-31.0) 04/26/18 20:24 Anion Gap 10.6 (7.0-16.0) 04/26/18 20:24 BUN 24 mg/dL (7-25) 04/26/18 20:24 Creatinine 0.8 mg/dL (0.7-1.3) 04/26/18 20:24 Est GFR ( Amer) > 60.0 ml/min (>90) 04/26/18 20:24 Est GFR (Non-Af Amer) > 60.0 ml/min 04/26/18 20:24 BUN/Creatinine Ratio 30.0 04/26/18 20:24 Glucose 111 mg/dL (70-105) H 04/26/18 20:24 Calcium 9.3 mg/dL (8.6-10.3) 04/26/18 20:24 Total Bilirubin 0.3 mg/dL (0.3-1.0) 04/26/18 20:24 AST 20 U/L (13-39) 04/26/18 20:24 ALT 14 U/L (7-52) 04/26/18 20:24 Alkaline Phosphatase 82 U/L (34-104) 04/26/18 20:24 Total Protein 6.9 gm/dL (6.0-8.3) 04/26/18 20:24 Albumin 3.9 gm/dL (4.2-5.5) L 04/26/18 20:24 Globulin 3.0 gm/dL 04/26/18 20:24 Albumin/Globulin Ratio 1.3 (1.0-1.8) 04/26/18 20:24 Triglycerides 169 mg/dL (<150) H 04/26/18 20:24 Cholesterol 147 mg/dL (<200) 04/26/18 20:24 LDL Cholesterol Direct 115 mg/dL (75-193) 04/26/18 20:24 HDL Cholesterol 24 mg/dL (23-92) 04/26/18 20:24 - Physical Exam Vitals and I&O: Vital Signs Temp 97.7 F 05/02/18 06:38 Pulse 75 05/02/18 06:38 Resp 20 05/02/18 06:38 BP 115/68 05/02/18 06:38 Pulse Ox 96 05/02/18 06:38 Intake & Output 05/01/18 05/02/18 05/02/18 18:59 06:59 18:59 Intake Total 900 480 Balance 900 480 Intake: Oral 900 480 Other: # Voids 4 2 # Bowel Movements 1 Active Medications: Current Medications Acetaminophen (Tylenol) 650 mg PO Q4H PRN PRN Reason: Mild Pain / Temp above 100 Stop: 06/25/18 23:25 Acetaminophen/Hydrocodone Bitart ([place] 5mg/325mg) 1 tab PO Q6HR PRN PRN Reason: Pain (Moderate) Stop: 06/25/18 23:25 Benztropine Mesylate (Cogentin) 1 mg PO BID [facility] Stop: 06/26/18 08:59 Last Admin: 05/02/18 09:18 Dose: 1 mg Calcium Carbonate (Os-Filippo) 500 mg PO BID [facility] Stop: 06/26/18 08:59 Last Admin: 05/02/18 09:18 Dose: 500 mg Diclofenac Sodium (Voltaren) 75 mg PO BID [facility] Stop: 06/26/18 08:59 Last Admin: 05/02/18 09:19 Dose: 75 mg Ferrous Sulfate (Iron) 325 mg PO BIDWM [facility] Stop: 06/26/18 07:59 Last Admin: 05/02/18 09:19 Dose: 325 mg Levothyroxine Sodium (Synthroid) 0.025 mg PO QDAC [facility] Stop: 06/26/18 07:29 Last Admin: 05/02/18 06:38 Dose: 0.025 mg Lorazepam (Ativan) 0.5 mg PO Q4HR PRN; Protocol PRN Reason: Anxiety Stop: 05/26/18 23:11 Memantine (Namenda) 5 mg PO BID [facility] Stop: 06/28/18 08:59 Last Admin: 05/02/18 09:18 Dose: 5 mg Pantoprazole Sodium (Protonix) 40 mg PO QDAC [facility] Stop: 06/26/18 07:29 Last Admin: 05/02/18 06:38 Dose: 40 mg Quetiapine Fumarate (Seroquel) 200 mg PO Q12HR [facility]; Protocol Stop: 06/26/18 12:59 Last Admin: 05/02/18 09:18 Dose: 200 mg Zolpidem Tartrate (Ambien) 5 mg PO HSMR1 PRN PRN Reason: Insomnia Stop: 06/25/18 23:11 General: Alert, Other (Confused) HEENT: Atraumatic Neck: Supple Cardiovascular: Regular rate Lungs: Clear to auscultation Abdomen: Bowel sounds, Soft Extremities: Other (No edema) Neurological: Normal gait Skin: Other (Warm and dry) Assessment/Plan - Assessment Assessment: Patient is awake, alert, confused, not oriented. Dx: Increased in agitation. - Plan Plan: Patient is under psychiatric care, continue with SNF meds. Will continue to monitor. Nutritional Asmnt/Malnutr-PDOC - Dietary Evaluation Malnutrition Findings (Please click <Entered> for more info): Nutritional Asmnt/Malnutrition Start: 04/29/18 14: 12 Text: Status: Complete Freq: Protocol: Document 04/29/18 14:12 [email or web address] (Rec: 04/29/18 14:18 [email or web address] ANNE-MARIE) Nutritional Asmnt/Malnutrition Patient General Information Nutritional Screening Moderate Risk Diagnosis psychosis nos Pertinent Medical Hx/Surgical Hx dementia, CAD, psychosis, OA Subjective Information Pt is AO x1-2 per nurse note. PO intake is 100% per EMR. Current Diet Order/ Nutrition Support CCHO, fortified foods with meals, ensure Patient / S.O Can't verbalize diet edu Pertinent Medications Os-filippo, ferrous sulfate, synthroid, protonix, seroquel, ambien Pertinent Labs 04/26 glucose 111, alb 3.9, triglycerides 169 Nutritional Hx/Data Height 1.7 m Height (Calculated Centimeters) 170.2 Current Weight (lbs) 77.111 kg Weight (Calculated Kilograms) 77.1 Weight (Calculated Grams) 70579.7 [place] Body Weight 148 Body Mass Index (BMI) 26.6 Weight Status Overweight GI Symptoms GI Symptoms None Last BM 04/28 Difficult in: None Food Allergies No Skin Integrity/Comment: intact, jarret 17 Current %PO Good (75-100%) Estimated Nutritional Goals BEE in Kcals: Using Current wt Calories/Kcals/Kg 23-27 Kcals Calculated 8894-2196 Protein: Using Current wt Protein g/k.8-1 Protein Calculated 61-77 Fluid: ml 6568-0801 (1ml/kcal) Nutritional Problem No current Nutrition Prob Problem N/A Malnutrition Alert Is there a minimum of two criteria No selected? Query Text:Check all the applicable criteria. A minimum of two criteria are recommended for diagnosis of either severe or non-severe malnutrition. Malnutrition Related to Morbid Obesity Malnutrition related to morbid obesity No Intervention/Recommendation Comments 1. Continue with CCHO, fortified food with ensure diet as ordered. Recommend Glucerna shake instead of Ensure enlive to compliant current [facility] [place] diet. LISA Barrera notified. 2. Monitor PO intake, wt, labs and skin integrity 3. F/U as low risk in 7 days, 05/06 Expected Outcomes/Goals Expected Outcomes/Goals Goal: PO intake to meet at least 75% of nutritional needs . Reviewed by Caterina Fenton RD
--- NOTE | 2018-05-02 19:19 | Progress Notes ---
DATE: 04/30/2018 SUBJECTIVE: Chart reviewed and the patient interviewed. Also discussed the patient's condition with the staff and reviewed records and labs. The patient is still anxious and is still in a depressed mood. The patient also is still withdrawn and interacting minimally with others. Also, still easily agitated and has severe mood swings. Otherwise, the patient is compliant with taking his medications with no side effects of medications. ASSESSMENT: The patient is still anxious and is still in a depressed mood. TREATMENT PLAN: We will continue to monitor behavior and condition closely. Also, Seroquel was increased to 200 mg twice a day and Namenda 5 mg twice a day. We will continue same dose and continue to work on his ineffective coping as well as his depression and psychosis. JOB# [id number]
--- NOTE | 2018-05-02 20:18 | Progress Notes ---
DATE: 05/02/2018 SUBJECTIVE: The patient was seen and evaluated. Today on [id number] evaluation, the patient continues to be selectively mute, responding and also grossly disorganized, difficult to maintain a linear conversation. ASSESSMENT AND PLAN: The patient is a 57-year-old male, need a lot of simple redirection to provide himself with simple ADLs, unable to formulate a safe plan outside a structured environment. We will continue with the current medication regimen to continue to reduce to target the patient's ongoing thought process. JOB# [id number]
[2018-05-03] MEDS: Levothyroxine 0.025 Mg Tab PO SCH (06:43)
[2018-05-03] MEDS: Pantoprazole 40 mg EC Tab PO SCH (06:43)
[2018-05-03] MEDS: Multivitamin w/ Minerals Tab PO SCH (09:20)
[2018-05-03] MEDS: Diclofenac 75 mg Tab PO SCH ×2 (09:20→17:22)
[2018-05-03] MEDS: Benztropine 1 MG TAB PO SCH ×2 (09:20→17:22)
[2018-05-03] MEDS: Ferrous Sulfate 325 MG TAB PO SCH ×2 (09:21→17:23)
--- NOTE | 2018-05-03 18:15 | General Progress Note ---
Subjective - Review of Systems Service Date: 05/03/18 Subjective: Patient is confused Objective - Results Result Diagrams: 04/26/18 20:24 04/26/18 20:24 Recent Labs: Laboratory Last Values WBC 8.6 Th/cmm (4.8-10.8) 04/26/18 20:24 RBC 4.53 Mil/cmm (4.30-5.70) 04/26/18 20:24 Hgb 14.7 gm/dL (12-16) 04/26/18 20:24 Hct 43.4 % (41.0-60) 04/26/18 20:24 MCV 95.9 fl (80-99) 04/26/18 20:24 MCH 32.6 pg (26.0-30.0) H 04/26/18 20:24 MCHC Differential 33.9 pg (28.0-36.0) 04/26/18 20:24 RDW 12.5 % (11.5-20.0) 04/26/18 20:24 Plt Count 210 Th/cmm (150-400) 04/26/18 20:24 MPV 7.7 fl 04/26/18 20:24 Neutrophils % 56.9 % (40.0-80.0) 04/26/18 20:24 Lymphocytes % 34.4 % (20.0-50.0) 04/26/18 20:24 Monocytes % 6.3 % (2.0-10.0) 04/26/18 20:24 Eosinophils % 1.9 % (0.0-5.0) 04/26/18 20:24 Basophils % 0.5 % (0.0-2.0) 04/26/18 20:24 Sodium 138 mEq/L (136-145) 04/26/18 20:24 Potassium 3.7 mEq/L (3.5-5.1) 04/26/18 20:24 Chloride 106 mEq/L (98-107) 04/26/18 20:24 Carbon Dioxide 25.1 mEq/L (21.0-31.0) 04/26/18 20:24 Anion Gap 10.6 (7.0-16.0) 04/26/18 20:24 BUN 24 mg/dL (7-25) 04/26/18 20:24 Creatinine 0.8 mg/dL (0.7-1.3) 04/26/18 20:24 Est GFR ( Amer) > 60.0 ml/min (>90) 04/26/18 20:24 Est GFR (Non-Af Amer) > 60.0 ml/min 18 20:24 BUN/Creatinine Ratio 30.0 04/26/18 20:24 Glucose 111 mg/dL (70-105) H 04/26/18 20:24 Calcium 9.3 mg/dL (8.6-10.3) 04/26/18 20:24 Total Bilirubin 0.3 mg/dL (0.3-1.0) 04/26/18 20:24 AST 20 U/L (13-39) 04/26/18 20:24 ALT 14 U/L (7-52) 04/26/18 20:24 Alkaline Phosphatase 82 U/L (34-104) 04/26/18 20:24 Total Protein 6.9 gm/dL (6.0-8.3) 04/26/18 20:24 Albumin 3.9 gm/dL (4.2-5.5) L 04/26/18 20:24 Globulin 3.0 gm/dL 04/26/18 20:24 Albumin/Globulin Ratio 1.3 (1.0-1.8) 04/26/18 20:24 Triglycerides 169 mg/dL (<150) H 04/26/18 20:24 Cholesterol 147 mg/dL (<200) 04/26/18 20:24 LDL Cholesterol Direct 115 mg/dL (75-193) 04/26/18 20:24 HDL Cholesterol 24 mg/dL (23-92) 04/26/18 20:24 - Physical Exam Vitals and I&O: Vital Signs Temp 97.4 F 05/03/18 14:00 Pulse 75 05/03/18 14:00 Resp 20 05/03/18 14:00 BP 149/78 05/03/18 14:00 Pulse Ox 97 05/03/18 14:00 Intake & Output 05/02/18 05/03/18 05/03/18 18:59 06:59 18:59 Intake Total 240 Balance 240 Intake: Oral 240 Other: # Voids 3 # Bowel Movements 0 Stool Characteristics Soft Formed Brown Active Medications: Current Medications Acetaminophen (Tylenol) 650 mg PO Q4H PRN PRN Reason: Mild Pain / Temp above 100 Stop: 06/25/18 23:25 Acetaminophen/Hydrocodone Bitart ([place] 5mg/325mg) 1 tab PO Q6HR PRN PRN Reason: Pain (Moderate) Stop: 06/25/18 23:25 Benztropine Mesylate (Cogentin) 1 mg PO BID [facility] Stop: 06/26/18 08:59 Last Admin: 05/03/18 17:22 Dose: 1 mg Calcium Carbonate (Os-Filippo) 500 mg PO BID [facility] Stop: 06/26/18 08:59 Last Admin: 05/03/18 17:22 Dose: 500 mg Diclofenac Sodium (Voltaren) 75 mg PO BID [facility] Stop: 06/26/18 08:59 Last Admin: 05/03/18 17:22 Dose: 75 mg Ferrous Sulfate (Iron) 325 mg PO BIDWM [facility] Stop: 06/26/18 07:59 Last Admin: 05/03/18 17:23 Dose: 325 mg Levothyroxine Sodium (Synthroid) 0.025 mg PO QDAC [facility] Stop: 06/26/18 07:29 Last Admin: 05/03/18 06:43 Dose: 0.025 mg Lorazepam (Ativan) 0.5 mg PO Q4HR PRN; Protocol PRN Reason: Anxiety Stop: 05/26/18 23:11 Last Admin: 05/03/18 17:22 Dose: 0.5 mg Memantine (Namenda) 5 mg PO BID [facility] Stop: 06/28/18 08:59 Last Admin: 05/03/18 17:22 Dose: 5 mg Pantoprazole Sodium (Protonix) 40 mg PO QDAC [facility] Stop: 06/26/18 07:29 Last Admin: 05/03/18 06:43 Dose: 40 mg Quetiapine Fumarate (Seroquel) 200 mg PO Q12HR [facility]; Protocol Stop: 06/26/18 12:59 Last Admin: 05/03/18 09:20 Dose: 200 mg Zolpidem Tartrate (Ambien) 5 mg PO HSMR1 PRN PRN Reason: Insomnia Stop: 06/25/18 23:11 Last Admin: 05/02/18 20:42 Dose: 5 mg General: Alert, Other (Confused) HEENT: Atraumatic Neck: Supple Cardiovascular: Regular rate Lungs: Clear to auscultation Abdomen: Bowel sounds, Soft Extremities: Other (No edema) Neurological: Normal gait Skin: Other (Warm and dry) Assessment/Plan - Assessment Assessment: Patient is awake, alert, confused, not oriented. Dx: Increased in agitation. - Plan Plan: Patient is under psychiatric care, continue with SNF meds. Will continue to monitor. Nutritional Asmnt/Malnutr-PDOC - Dietary Evaluation Malnutrition Findings (Please click <Entered> for more info): Nutritional Asmnt/Malnutrition Start: 04/29/18 14: 12 Text: Status: Complete Freq: Protocol: Document 04/29/18 14:12 [email or web address] (Rec: 04/29/18 14:18 [email or web address]) Nutritional Asmnt/Malnutrition Patient General Information Nutritional Screening Moderate Risk Diagnosis psychosis nos Pertinent Medical Hx/Surgical Hx dementia, CAD, psychosis, OA Subjective Information Pt is AO x1-2 per nurse note. PO intake is 100% per EMR. Current Diet Order/ Nutrition Support CCHO, fortified foods with meals, ensure Patient / S.O Can't verbalize diet edu Pertinent Medications Os-filippo, ferrous sulfate, synthroid, protonix, seroquel, ambien Pertinent Labs 04/26 glucose 111, alb 3.9, triglycerides 169 Nutritional Hx/Data Height 1.7 m Height (Calculated Centimeters) 170.2 Current Weight (lbs) 77.111 kg Weight (Calculated Kilograms) 77.1 Weight (Calculated Grams) 41978.7 [place] Body Weight 148 Body Mass Index (BMI) 26.6 Weight Status Overweight GI Symptoms GI Symptoms None Last BM 04/28 Difficult in: None Food Allergies No Skin Integrity/Comment: jarret aguilar 17 Current %PO Good (75-100%) Estimated Nutritional Goals BEE in Kcals: Using Current wt Calories/Kcals/Kg 23-27 Kcals Calculated 6814-1399 Protein: Using Current wt Protein g/k.8-1 Protein Calculated 61-77 Fluid: ml 6962-0913 (1ml/kcal) Nutritional Problem No current Nutrition Prob Problem N/A Malnutrition Alert Is there a minimum of two criteria No selected? Query Text:Check all the applicable criteria. A minimum of two criteria are recommended for diagnosis of either severe or non-severe malnutrition. Malnutrition Related to Morbid Obesity Malnutrition related to morbid obesity No Intervention/Recommendation Comments 1. Continue with CCHO, fortified food with ensure diet as ordered. Recommend Glucerna shake instead of Ensure enlive to compliant current [facility] diet. LISA Barrera notified. 2. Monitor PO intake, wt, labs and skin integrity 3. F/U as low risk in 7 days, 05/06 Expected Outcomes/Goals Expected Outcomes/Goals Goal: PO intake to meet at least 75% of nutritional needs . Reviewed by Caterina Fenton RD
--- NOTE | 2018-05-03 20:21 | Progress Notes ---
DATE: 05/03/2018 SUBJECTIVE: Chart reviewed and the patient interviewed. Also, discussed the patient's condition with the staff and reviewed records and labs. The patient is still in a depressed mood. The patient also is selectively mute and he is still having mood swings. Also, is still restless and anxious. The patient also wants to be left alone and stays in his room most of the time. Otherwise, the patient is compliant with taking his medications including Seroquel, Namenda and Cogentin. ASSESSMENT: The patient still has mood swings. TREATMENT PLAN: Continue to monitor his behavior and his condition closely. Also, continue to work on his ineffective coping and followup. JOB# [id number]
[2018-05-04] MEDS: Levothyroxine 0.025 Mg Tab PO SCH (06:34)
[2018-05-04] MEDS: Pantoprazole 40 mg EC Tab PO SCH (06:34)
[2018-05-04] MEDS: Ferrous Sulfate 325 MG TAB PO SCH ×2 (09:00→17:28)
[2018-05-04] MEDS: Diclofenac 75 mg Tab PO SCH ×2 (09:02→16:25)
[2018-05-04] MEDS: Benztropine 1 MG TAB PO SCH ×2 (09:02→16:25)
[2018-05-04] MEDS: Multivitamin w/ Minerals Tab PO SCH (09:03)
--- NOTE | 2018-05-04 19:00 | Progress Notes ---
DATE: 05/04/2018 SUBJECTIVE: Chart reviewed and the patient interviewed. Also discussed the patient's condition with the staff and reviewed records and labs. The patient is still selectively mute and he is still oriented only to himself, also confused and isolative, and ____. He also is interacting minimally with others. Otherwise, the patient is compliant with taking his medications, including Seroquel, Namenda, and Cogentin with no side effects. ASSESSMENT: The patient is still psychotic and confused. TREATMENT PLAN: Continue to monitor behavior and condition closely. Also, continue adjusting psychotropic medications and work on behavioral modification. JOB# [id number]
[2018-05-05] MEDS: Levothyroxine 0.025 Mg Tab PO SCH (06:40)
[2018-05-05] MEDS: Pantoprazole 40 mg EC Tab PO SCH (06:40)
[2018-05-05] MEDS: Ferrous Sulfate 325 MG TAB PO SCH (08:28)
--- NOTE | 2018-05-05 09:11 | General Progress Note ---
Subjective - Review of Systems Service Date: 05/05/18 Subjective: Patient is confused Objective - Results Result Diagrams: 04/26/18 20:24 04/26/18 20:24 Recent Labs: Laboratory Last Values WBC 8.6 Th/cmm (4.8-10.8) 04/26/18 20:24 RBC 4.53 Mil/cmm (4.30-5.70) 04/26/18 20:24 Hgb 14.7 gm/dL (12-16) 04/26/18 20:24 Hct 43.4 % (41.0-60) 04/26/18 20:24 MCV 95.9 fl (80-99) 04/26/18 20:24 MCH 32.6 pg (26.0-30.0) H 04/26/18 20:24 MCHC Differential 33.9 pg (28.0-36.0) 04/26/18 20:24 RDW 12.5 % (11.5-20.0) 04/26/18 20:24 Plt Count 210 Th/cmm (150-400) 04/26/18 20:24 MPV 7.7 fl 04/26/18 20:24 Neutrophils % 56.9 % (40.0-80.0) 04/26/18 20:24 Lymphocytes % 34.4 % (20.0-50.0) 04/26/18 20:24 Monocytes % 6.3 % (2.0-10.0) 04/26/18 20:24 Eosinophils % 1.9 % (0.0-5.0) 04/26/18 20:24 Basophils % 0.5 % (0.0-2.0) 04/26/18 20:24 Sodium 138 mEq/L (136-145) 04/26/18 20:24 Potassium 3.7 mEq/L (3.5-5.1) 04/26/18 20:24 Chloride 106 mEq/L (98-107) 04/26/18 20:24 Carbon Dioxide 25.1 mEq/L (21.0-31.0) 04/26/18 20:24 Anion Gap 10.6 (7.0-16.0) 04/26/18 20:24 BUN 24 mg/dL (7-25) 04/26/18 20:24 Creatinine 0.8 mg/dL (0.7-1.3) 04/26/18 20:24 Est GFR ( Amer) > 60.0 ml/min (>90) 04/26/18 20:24 Est GFR (Non-Af Amer) > 60.0 ml/min 04/26/18 20:24 BUN/Creatinine Ratio 30.0 04/26/18 20:24 Glucose 111 mg/dL (70-105) H 04/26/18 20:24 Calcium 9.3 mg/dL (8.6-10.3) 04/26/18 20:24 Total Bilirubin 0.3 mg/dL (0.3-1.0) 04/26/18 20:24 AST 20 U/L (13-39) 04/26/18 20:24 ALT 14 U/L (7-52) 04/26/18 20:24 Alkaline Phosphatase 82 U/L (34-104) 04/26/18 20:24 Total Protein 6.9 gm/dL (6.0-8.3) 04/26/18 20:24 Albumin 3.9 gm/dL (4.2-5.5) L 04/26/18 20:24 Globulin 3.0 gm/dL 04/26/18 20:24 Albumin/Globulin Ratio 1.3 (1.0-1.8) 04/26/18 20:24 Triglycerides 169 mg/dL (<150) H 04/26/18 20:24 Cholesterol 147 mg/dL (<200) 04/26/18 20:24 LDL Cholesterol Direct 115 mg/dL (75-193) 04/26/18 20:24 HDL Cholesterol 24 mg/dL (23-92) 04/26/18 20:24 - Physical Exam Vitals and I&O: Vital Signs Temp 98.2 F 05/05/18 06:26 Pulse 69 05/05/18 06:26 Resp 20 05/05/18 06:26 BP 123/70 05/05/18 06:26 Pulse Ox 97 05/05/18 06:26 Intake & Output 05/04/18 05/05/18 05/05/18 18:59 06:59 18:59 Intake Total 300 Balance 300 Intake: Oral 300 Other: # Voids 3 2 # Bowel Movements 0 1 Active Medications: Current Medications Acetaminophen (Tylenol) 650 mg PO Q4H PRN PRN Reason: Mild Pain / Temp above 100 Stop: 06/25/18 23:25 Acetaminophen/Hydrocodone Bitart ([place] 5mg/325mg) 1 tab PO Q6HR PRN PRN Reason: Pain (Moderate) Stop: 06/25/18 23:25 Benztropine Mesylate (Cogentin) 1 mg PO BID [facility] Stop: 06/26/18 08:59 Last Admin: 05/04/18 16:25 Dose: 1 mg Calcium Carbonate (Os-Filippo) 500 mg PO BID [facility] Stop: 06/26/18 08:59 Last Admin: 05/04/18 16:25 Dose: 500 mg Diclofenac Sodium (Voltaren) 75 mg PO BID [facility] Stop: 06/26/18 08:59 Last Admin: 05/04/18 16:25 Dose: 75 mg Ferrous Sulfate (Iron) 325 mg PO BIDWM [facility] Stop: 06/26/18 07:59 Last Admin: 05/04/18 17:28 Dose: 325 mg Levothyroxine Sodium (Synthroid) 0.025 mg PO QDAC [facility] Stop: 06/26/18 07:29 Last Admin: 05/05/18 06:40 Dose: 0.025 mg Lorazepam (Ativan) 0.5 mg PO Q4HR PRN; Protocol PRN Reason: Anxiety Stop: 05/26/18 23:11 Last Admin: 05/03/18 17:22 Dose: 0.5 mg Memantine (Namenda) 10 mg PO BID [facility] Stop: 07/04/18 08:59 Pantoprazole Sodium (Protonix) 40 mg PO QDAC [facility] Stop: 06/26/18 07:29 Last Admin: 05/05/18 06:40 Dose: 40 mg Quetiapine Fumarate (Seroquel) 200 mg PO Q12HR [facility]; Protocol Stop: 06/26/18 12:59 Last Admin: 05/04/18 20:39 Dose: 200 mg Zolpidem Tartrate (Ambien) 5 mg PO HSMR1 PRN PRN Reason: Insomnia Stop: 06/25/18 23:11 Last Admin: 05/02/18 20:42 Dose: 5 mg General: Alert, Other (Confused) HEENT: Atraumatic Neck: Supple Cardiovascular: Regular rate Lungs: Clear to auscultation Abdomen: Bowel sounds, Soft Extremities: Other (No edema) Neurological: Normal gait Skin: Other (Warm and dry) Assessment/Plan - Assessment Assessment: Patient is awake, alert, confused, not oriented. Dx: Increased in agitation. - Plan Plan: Patient is under psychiatric care, continue with SNF meds. Will continue to monitor. Nutritional Asmnt/Malnutr-PDOC - Dietary Evaluation Malnutrition Findings (Please click <Entered> for more info): Nutritional Asmnt/Malnutrition Start: 04/29/18 14: 12 Text: Status: Complete Freq: Protocol: Document 04/29/18 14:12 [email or web address] (Rec: 04/29/18 14:18 [email or web address]-MARIE) Nutritional Asmnt/Malnutrition Patient General Information Nutritional Screening Moderate Risk Diagnosis psychosis nos Pertinent Medical Hx/Surgical Hx dementia, CAD, psychosis, OA Subjective Information Pt is AO x1-2 per nurse note. PO intake is 100% per EMR. Current Diet Order/ Nutrition Support CCHO, fortified foods with meals, ensure Patient / S.O Can't verbalize diet edu Pertinent Medications Os-filippo, ferrous sulfate, synthroid, protonix, seroquel, ambien Pertinent Labs 04/26 glucose 111, alb 3.9, triglycerides 169 Nutritional Hx/Data Height 1.7 m Height (Calculated Centimeters) 170.2 Current Weight (lbs) 77.111 kg Weight (Calculated Kilograms) 77.1 Weight (Calculated Grams) 92546.7 [place] Body Weight 148 Body Mass Index (BMI) 26.6 Weight Status Overweight GI Symptoms GI Symptoms None Last BM 04/28 Difficult in: None Food Allergies No Skin Integrity/Comment: intact, jarret 17 Current %PO Good (75-100%) Estimated Nutritional Goals BEE in Kcals: Using Current wt Calories/Kcals/Kg 23-27 Kcals Calculated 1913-2172 Protein: Using Current wt Protein g/k.8-1 Protein Calculated 61-77 Fluid: ml 3868-4691 (1ml/kcal) Nutritional Problem No current Nutrition Prob Problem N/A Malnutrition Alert Is there a minimum of two criteria No selected? Query Text:Check all the applicable criteria. A minimum of two criteria are recommended for diagnosis of either severe or non-severe malnutrition. Malnutrition Related to Morbid Obesity Malnutrition related to morbid obesity No Intervention/Recommendation Comments 1. Continue with CCHO, fortified food with ensure diet as ordered. Recommend Glucerna shake instead of Ensure enlive to compliant current [facility] diet. RN Holly notified. 2. Monitor PO intake, wt, labs and skin integrity 3. F/U as low risk in 7 days, 05/06 Expected Outcomes/Goals Expected Outcomes/Goals Goal: PO intake to meet at least 75% of nutritional needs . Reviewed by Caterina Fenton RD
[2018-05-05] MEDS: Multivitamin w/ Minerals Tab PO SCH (09:28)
[2018-05-05] MEDS: Benztropine 1 MG TAB PO SCH (09:29)
[2018-05-05] MEDS: Diclofenac 75 mg Tab PO SCH (09:32)
--- NOTE | 2018-05-06 00:19 | Discharge Summary ---
DATE OF DISCHARGE: 05/05/2018 AGE: 57. SEX: Male. PHYSICIAN: Dr. Woods. FINAL DIAGNOSIS: PRIMARY DIAGNOSIS: Unspecified psychosis. REASON FOR HOSPITALIZATION: The patient was admitted to the hospital from [facility] because the patient was screaming and pulling his hair and extremely agitated and unable to follow directions. HOSPITAL COURSE: The patient continued to be agitated and in irritable mood upon admission. Also, was still having episodes of yelling and screaming. The patient was started on Seroquel and the dose adjusted to 200 mg twice a day and the patient also was monitored closely for his dementia and was having Namenda 10 mg twice a day and Aricept. The patient was not suicidal or homicidal, and the patient was discharged from the hospital. Physical exam came basically with no major medical problems. Blood workup was also basically within normal. AFTER-DISCHARGE PLANS: Outpatient treatment and follow up as an outpatient and the patient returned to [facility] and will be followed there. EXPECTED OUTCOME AFTER DISCHARGE: Guarded unless the patient follow with his outpatient treatment. JOB# [id number]
--- NOTE | 2018-05-06 00:30 | Progress Notes ---
DATE: 05/05/2018 SUBJECTIVE: Chart reviewed and the patient interviewed. Also, discussed the patient's condition with the staff and reviewed records and labs. The patient is still selectively mute and he is still anxious and is still paranoid, but less than before. Plan is to discharge the patient today if will be accepted in [facility]. JOB# [id number]
== END 2018-05-05 16:05 | DRG 885 ==
LOC: ER 19:45 → GERO 21:32
PROVIDERS: ADMIT Psychiatry & Neurology Psychiatry; ATTEND Psychiatry & Neurology Psychiatry
DX: F29 Unspecified psychosis not due to a substance or known physiological condition (principal); I25.10 Atherosclerotic heart disease of native coronary artery without angina pectoris; M19.90 Unspecified osteoarthritis, unspecified site; F03.90 Unspecified dementia, unspecified severity, without behavioral disturbance, psychotic disturbance, mood disturbance, and anxiety; D64.9 Anemia, unspecified; F41.9 Anxiety disorder, unspecified; Z79.899 Other long term (current) drug therapy
CPT/HCPCS: 36415-UA; 80053-TC; 80061-TC; 83036-90; 85025-TC; Z7610

== ENCOUNTER 2019-11-14 14:48 | Inpatient (IN) | payer MEDICARE, MEDICAID ==
[2019-11-15] MEDS ORDERED: Magnesium Hydroxide (MOM) 30 mL UDC PO PRN (01:30)
[2019-11-15 02:40] VITALS: BP 141/70
--- NOTE | 2019-11-15 15:16 | History & Physical ---
ADMIT DATE: 11/15/2019 HISTORY OF PRESENT ILLNESS: We have a 59-year-old male patient resides at a [facility], was brought in for agitation. The patient is nonverbal during my visit and is not able to give me any meaningful history. PAST MEDICAL HISTORY: Hypertension. MEDICATIONS: Complete medication list is not available. ALLERGIES: None. SOCIAL HISTORY: Tobacco, IV drugs, ETOH negative. PHYSICAL EXAMINATION: VITAL SIGNS: Temperature is 97.5, pulse 80, respirations 20, blood pressure 122/82, satting 99% on room air. HEENT: Normocephalic, atraumatic head exam. NECK: Supple. CARDIOVASCULAR: Regular rate and rhythm. LUNGS: Decreased breath sounds. ABDOMEN: Soft, nontender. EXTREMITIES: No edema, cyanosis or clubbing. NEUROLOGIC: Cranial nerve exam: The patient is not cooperative. ASSESSMENT AND PLAN: 1. Advanced dementia. 2. Hypothyroidism. 3. Osteoarthritis. 4. Chronic pain. 5. Agitation. The patient will have all routine tests done including CBC, CMP, COVID screening, TSH, and B12. JOB# [id number]
[2019-11-15 17:22] LABS: CHOLESTEROL 160 mg/dL (<200); LDL CHOLESTEROL 106 mg/dL (0-129); TRIGLYCERIDES 60 mg/dL (30-150)
[2019-11-15 17:29] LABS: % NEUTROPHILS 64.1 % (40-70); BASOPHILS % (AUTO) 0.3 % (0.0-2.0); EOSINOPHILS % (AUTO) 0.3 % (0-4); HEMOGLOBIN 13.4 g/dL (14.0-18.0); LYMPHOCYTES # (AUTO) 2.2 K/uL (1.0-5.5); LYMPHOCYTES % (AUTO) 27.6 % (20.5-51.5); MEAN CORPUSCULAR HEMOGLOBIN 32 pg (27-31); MEAN CORPUSCULAR HGB CONC 33 % (32-36); MEAN CORPUSCULAR VOLUME 97 fL (79.0-98.0); MONOCYTES # (AUTO) 0.6 K/uL (0.0-1.0); MONOCYTES % (AUTO) 7.7 % (1.7-9.3); NEUTROPHILS # (AUTO) 5.1 K/uL (1.8-7.7); PLATELET COUNT 233 K/uL (130-430); RED BLOOD COUNT 4.24 MIL/uL (4.2-6.2); RED CELL DISTRIBUTION WIDTH 13.4 % (9.0-15.0)
--- NOTE | 2019-11-15 19:14 | Psychiatric Evaluation ---
DATE OF SERVICE: 11/15/2019 IDENTIFYING DATA: The patient is a 59-year-old male, resident of prison facility at [facility]. Information obtained by directly interviewing the patient as well as reviewing the admission papers and is reliable. JUSTIFICATION OF HOSPITALIZATION: The patient is admitted on a voluntary basis in view of his acute agitation and psychosis. CHIEF COMPLAINT: "I don't know." HISTORY OF PRESENT ILLNESS: This is one of multiple psychiatric hospitalizations for this patient who is reported to have been diagnosed to have schizophrenia, chronic paranoid type at least for the past 20 ____ years and the patient is reported to have been on Seroquel and has been getting up almost up to 400 mg at bedtime. Even with these medications, the patient is reported to have been out of control and has been screaming and yelling and has been having difficult time to cope with the stress. During the evaluation, the patient is not willing to give much of any information and has been trying to go the other way. The patient at this time is not able to contract for safety. The patient is still responding to internal stimuli. Sleep is noted to be poor. Appetite is also noted to be very poor. The patient is reported to have been getting very aggressive towards the staff members and other peers. PAST PSYCHIATRIC HISTORY: The patient had been diagnosed to have schizophrenia for a long period of time. SOCIAL HISTORY: The patient is a resident of the [facility]. MEDICAL HISTORY: Physical examination is requested to be done by Dr. Schmitt. SUBSTANCE ABUSE HISTORY: None. PHYSICAL OR SEXUAL ABUSE HISTORY: Details are not known. MENTAL STATUS EXAMINATION: The patient is a 59-year-old, looking his stated age, superficially cooperative. Eye contact is poor. Mood is noted to be irritable. Affect is constricted. The patient is pacing on the unit. The patient has been responding to internal stimuli. Insight and judgment at this time are noted to be very much impaired. Impulse control seems to be poor. Coping skills are noted to be very poor. The patient is alert and oriented x 3. Attention span and concentration are noted to be poor. The patient appears to be of average intelligence. DIAGNOSES: AXIS I: Schizophrenia, chronic paranoid type; rule out schizoaffective disorder. AXIS II: None. AXIS III: As per Dr. Schmitt. IMMEDIATE TREATMENT PLAN: The patient is going to be observed on inpatient unit, provided with supportive psychotherapy. The patient is going to be slowly tapered off of the Seroquel, since it has not been effective and the patient is going to be placed on low dose of Zyprexa and Depakote to contain the mood swings. ESTIMATED LENGTH OF STAY: 5-7 days. DISCHARGE CRITERIA: When he no longer a threat to self or others and be able to cope up with the stress. JOB# [id number]
[2019-11-16] MEDS: Levothyroxine 0.025 Mg Tab PO SCH (06:38)
[2019-11-16] MEDS: Pantoprazole 40 mg EC Tab PO SCH (06:38)
[2019-11-16] MEDS: Multivitamin w/ Minerals Tab PO SCH ×2 (09:00→09:05)
[2019-11-16] MEDS ORDERED: Haloperidol Lactate 5 mg/mL 1mL Vial ONE (15:29)
--- NOTE | 2019-11-16 15:37 | Progress Notes ---
DATE: 11/16/2019 SUBJECTIVE: This is a 59-year-old male transfer of care from Dr. Downs to Dr. Howell. The patient is seen by this clinician over at [facility] in [place]. The patient is agitated, psychotic, schizophrenia. Very paranoid, believing food is being poisoned. Does not want to take medicine, out of control, screaming and yelling, very unruly, they could not control his behaviors. Extensive time was spent with the patient today, he was really aggressive with me, at some points trying to box with me bringing his hands up in the air. When I asked him why he does not want to take any medications. He looks at me, he stares at me for a long time and then states "fuck you." The patient tells me to "get the fuck out of here bitch." A very difficult to interview. I attempted to engage with him, but it was a pretty difficult. Time was spent with the staff. He apparently took medications yesterday, but not this morning. The patient is hard to redirect, may need emergency medications and sexually inappropriate, plays with his penis in bed, talks to himself, intrusive, disruptive, trying to spar with other people, kicking his legs, making fist motions. ASSESSMENT: The patient is combative, psychotic, bizarre, does not want to take medications. [place] petition may need to be filed. I put him on a 72-hour and 14-day hold now with a thought that a [employer] petition may need to be filed. We will continue dosing of Seroquel, Depakote, stop Zyprexa. JOB# [id number]
[2019-11-16] MEDS ORDERED: Haloperidol Lactate 5 mg/mL 1mL Vial IM ONE (15:39)
--- NOTE | 2019-11-16 17:05 | Internal Medicine Prog Note ---
Internal Medicine Subjective - Subjective Service Date: 11/16/19 (non-verbal) Patient seen and examined:: without staff Patient is:: awake Per staff patient has:: no adverse event, no episodes of fall Internal Medicine Objective - Results Result Diagrams: 11/15/19 15:05 Recent Labs: Laboratory Last Values WBC 8.0 K/uL (4.8-10.8) 11/15/19 15:05 RBC 4.24 MIL/uL (4.2-6.2) 11/15/19 15:05 Hgb 13.4 g/dL (14.0-18.0) L 11/15/19 15:05 Hct 41.0 % (36-54) 11/15/19 15:05 MCV 97 fL (79.0-98.0) 11/15/19 15:05 MCH 32 pg (27-31) H 11/15/19 15:05 MCHC 33 % (32-36) 11/15/19 15:05 RDW 13.4 % (9.0-15.0) 11/15/19 15:05 Plt Count 233 K/uL (130-430) 11/15/19 15:05 MPV 8.5 fl (7.4-10.4) 11/15/19 15:05 Neut % (Auto) 64.1 % (40-70) 11/15/19 15:05 Lymph % (Auto) 27.6 % (20.5-51.5) 11/15/19 15:05 [place] % (Auto) 7.7 % (1.7-9.3) 11/15/19 15:05 Eos % (Auto) 0.3 % (0-4) 11/15/19 15:05 Baso % (Auto) 0.3 % (0.0-2.0) 11/15/19 15:05 Neut # (Auto) 5.1 K/uL (1.8-7.7) 11/15/19 15:05 Lymph # (Auto) 2.2 K/uL (1.0-5.5) 11/15/19 15:05 [place] # (Auto) 0.6 K/uL (0.0-1.0) 11/15/19 15:05 Eos # (Auto) 0.0 K/uL (0.0-0.4) 11/15/19 15:05 Baso # (Auto) 0.0 K/uL (0.0-0.2) 11/15/19 15:05 Triglycerides 60 mg/dL (30-150) 11/15/19 15:05 Cholesterol 160 mg/dL (<200) 11/15/19 15:05 LDL Cholesterol 106 mg/dL (0-129) 11/15/19 15:05 HDL Cholesterol 36 mg/dL (>45) L 11/15/19 15:05 - Physical Exam Vitals and I&O: Vital Signs Temp 97.1 F 11/15/19 14:00 Pulse 68 11/15/19 14:00 Resp 20 11/16/19 08:00 BP 104/58 11/15/19 14:00 Pulse Ox 97 11/15/19 14:00 Intake & Output 11/15/19 11/16/19 11/16/19 18:59 06:59 18:59 Intake Total 800 120 Balance 800 120 Intake: Oral 800 120 Other: # Voids 3 3 # Bowel Movements 1 1 Active Medications: Current Medications Divalproex Sodium (Depakote Dr) 250 mg PO BID [facility]; Protocol Stop: 01/14/20 16:59 Last Admin: 11/16/19 10:59 Dose: Not Given Levothyroxine Sodium (Synthroid) 0.025 mg PO QDAC [facility] Stop: 01/15/20 07:29 Last Admin: 11/16/19 06:38 Dose: 0.025 mg Magnesium Hydroxide (Milk Of Magnesia) 30 ml PO HS PRN PRN Reason: Constipation Pantoprazole Sodium (Protonix) 40 mg PO QDAC [facility] Stop: 01/15/20 07:29 Last Admin: 11/16/19 06:38 Dose: 40 mg Quetiapine Fumarate (Seroquel) 200 mg PO HS [facility]; Protocol Stop: 01/14/20 20:59 Last Admin: 11/15/19 20:38 Dose: 200 mg General: weak HEENT: NC/AT, PERRLA, EOMI Neck: Supple Lungs: CTAB Cardiovascular: RRR, Normal S1, Normal S2 Abdomen: soft, non-tender Internal Medicine Assmt/Plan - Assessment Assessment: 1. Hypothyroidism 2. Hx of CVA - Plan Plan: continue supportive care d/n. reviewed medical records.
[2019-11-17] MEDS: Levothyroxine 0.025 Mg Tab PO SCH (06:41)
[2019-11-17] MEDS: Pantoprazole 40 mg EC Tab PO SCH (06:42)
[2019-11-17] MEDS: Multivitamin w/ Minerals Tab PO SCH (08:43)
--- NOTE | 2019-11-17 14:50 | Internal Medicine Prog Note ---
Internal Medicine Subjective - Subjective Service Date: 11/17/19 Patient seen and examined:: without staff Patient is:: awake Per staff patient has:: no adverse event, no episodes of fall Internal Medicine Objective - Results Result Diagrams: 11/15/19 15:05 Recent Labs: Laboratory Last Values WBC 8.0 K/uL (4.8-10.8) 11/15/19 15:05 RBC 4.24 MIL/uL (4.2-6.2) 11/15/19 15:05 Hgb 13.4 g/dL (14.0-18.0) L 11/15/19 15:05 Hct 41.0 % (36-54) 11/15/19 15:05 MCV 97 fL (79.0-98.0) 11/15/19 15:05 MCH 32 pg (27-31) H 11/15/19 15:05 MCHC 33 % (32-36) 11/15/19 15:05 RDW 13.4 % (9.0-15.0) 11/15/19 15:05 Plt Count 233 K/uL (130-430) 11/15/19 15:05 MPV 8.5 fl (7.4-10.4) 11/15/19 15:05 Neut % (Auto) 64.1 % (40-70) 11/15/19 15:05 Lymph % (Auto) 27.6 % (20.5-51.5) 11/15/19 15:05 [place] % (Auto) 7.7 % (1.7-9.3) 11/15/19 15:05 Eos % (Auto) 0.3 % (0-4) 11/15/19 15:05 Baso % (Auto) 0.3 % (0.0-2.0) 11/15/19 15:05 Neut # (Auto) 5.1 K/uL (1.8-7.7) 11/15/19 15:05 Lymph # (Auto) 2.2 K/uL (1.0-5.5) 11/15/19 15:05 [place] # (Auto) 0.6 K/uL (0.0-1.0) 11/15/19 15:05 Eos # (Auto) 0.0 K/uL (0.0-0.4) 11/15/19 15:05 Baso # (Auto) 0.0 K/uL (0.0-0.2) 11/15/19 15:05 Triglycerides 60 mg/dL (30-150) 11/15/19 15:05 Cholesterol 160 mg/dL (<200) 11/15/19 15:05 LDL Cholesterol 106 mg/dL (0-129) 11/15/19 15:05 HDL Cholesterol 36 mg/dL (>45) L 11/15/19 15:05 - Physical Exam Vitals and I&O: Vital Signs Temp 97.7 F 11/17/19 06:53 Pulse 46 11/17/19 06:53 Resp 20 11/17/19 08:00 BP 103/63 11/17/19 06:53 Pulse Ox 99 11/17/19 06:53 Intake & Output 11/16/19 11/17/19 11/17/19 18:59 06:59 18:59 Intake Total 500 120 Balance 500 120 Intake: Oral 500 120 Other: # Voids 2 # Bowel Movements 0 Active Medications: Current Medications Divalproex Sodium (Depakote Dr) 250 mg PO BID [facility]; Protocol Stop: 01/14/20 16:59 Last Admin: 11/17/19 08:43 Dose: 250 mg Levothyroxine Sodium (Synthroid) 0.025 mg PO QDAC [facility] Stop: 01/15/20 07:29 Last Admin: 11/17/19 06:41 Dose: 0.025 mg Lorazepam (Ativan) 0.5 mg PO Q4HR PRN; Protocol PRN Reason: Anxiety Stop: 01/15/20 20:53 Last Admin: 11/17/19 00:18 Dose: 0.5 mg Magnesium Hydroxide (Milk Of Magnesia) 30 ml PO HS PRN PRN Reason: Constipation Pantoprazole Sodium (Protonix) 40 mg PO QDAC [facility] Stop: 01/15/20 07:29 Last Admin: 11/17/19 06:42 Dose: 40 mg Quetiapine Fumarate (Seroquel) 100 mg PO HS [facility]; Protocol Stop: 01/16/20 20:59 Zolpidem Tartrate (Ambien) 5 mg PO HS PRN PRN Reason: Insomnia Stop: 01/15/20 20:52 Last Admin: 11/16/19 23:47 Dose: 5 mg General: weak HEENT: NC/AT, PERRLA, EOMI Neck: Supple Lungs: CTAB Cardiovascular: RRR, Normal S1, Normal S2 Abdomen: soft, non-tender Extremities: clear Neurological: no change Internal Medicine Assmt/Plan - Assessment Assessment: 1. Hypothyroidism 2. Hx of CVA - Plan Plan: check cbc, cmp, tsh, covid-19 screening continue supportive care d/wr.n. reviewed medical records. Nutritional Asmnt/Malnutr-PDOC - Dietary Evaluation Malnutrition Findings (Please click <Entered> for more info): Nutritional Asmnt/Malnutrition Start: 11/17/19 12: 52 Text: Status: Complete Freq: Protocol: Document 11/17/19 12:52 CHANDRA (Rec: 11/17/19 12:55 [email or web address] [id number]) Nutritional Asmnt/Malnutrition Patient General Information Nutritional Screening Moderate Risk Diagnosis Acute Agitation and Psychosis Pertinent Medical Hx/Surgical Hx Advanced Dementia, Hypothyroidism, Osteoarthritis , Chronic Pain, HTN, Schizophrenia Subjective Information Pt is a 59-year-old male admitted on 11/14 d/t Acute Agitation and Psychosis. Pt ate an estimated 60% of meals on first day here and refused lunch and dinner yesterday, eating only 25% breakfast Per Meal/Nutrition Activity Record . Dietary is currently providing an estimated 1800 kcals and 110 gm Pro. Pt came from SNF with reported poor appetite, will continue to monitor. Will provide Glucerna Hunger Smart TID until PO intake can meet estimated nutritional needs. Pt has no noted Hx DM, glucose 123 on admission with [facility] diet Rx. A1C pending. Anthropometrics HT: 57 WT: 142 LB (64.55 kg) BMI: 22.24 (normal) GI/ Skin Integrity GI: WNL, Soft, Flat, Non- tender BM: 11/15 x1 I/O: 620/Not Noted Skin: WNL, Intact Jono: 19 Diet Order: [facility] Estimated Energy Needs: ( Geriatric, CBW) 3730-0343 kcals (25-30 kcals/ kg) 65-80g Pro (1.0-1.2 g/kg) 0504-2381 ml (25-30 ml/kg) Current Diet Order/ Nutrition Support [facility] Pertinent Medications MOM (PRN), Protonix, Synthroid Pertinent Labs 11/14: Hgb/Hct 13.4/41.0, HDL 36 , Glucose 123, BUN/Cr 36/1.06, Urine ketones 3+, Urine Protein 1+ Nutritional Hx/Data Height 1.7 m Height (Calculated Centimeters) 170.2 Current Weight (lbs) 64.41 kg Weight (Calculated Kilograms) 64.4 Weight (Calculated Grams) 17636.1 [place] Body Weight 148 LB (67.27 kg) % [place] Body Weight 96 Body Mass Index (BMI) 22.2 Weight Status Approriate GI Symptoms Last BM 11/15 x1 Skin Integrity/Comment: Skin: WNL, Intact Jono: 19 Current %PO Poor (25-49%) Estimated Nutritional Goals BEE in Kcals: Using Current wt Calories/Kcals/Kg 25-30 Kcals Calculated 8390-1250 Protein: Using Current wt Protein g/k.0-1.2 Protein Calculated 65-80 Fluid: ml 4646-1408 ml (25-30 ml/kg) Nutritional Problem 1. Problem Problem Altered nutrition related labs Etiology r/t pathophysiological causes Signs/Symptoms: aeb labs (11/14) Glucose 123, BUN/Cr 36/1.06, Urine ketones 3+, Urine Protein 1+. Malnutrition Related to Morbid Obesity Malnutrition related to morbid obesity No Intervention/Recommendation Comments 1.Continue CCHO diet as tolerated. 2.Add Glucerna Hunger Smart TID (completed). Expected Outcomes/Goals Expected Outcomes/Goals 1.PO intake to meet 75% of estimated nutritional needs. 2.Monitor PO intake, wt, nutrition related labs, and skin integrity. 3.F/U as moderate risk in 3-5 days, 11/19-11/21.
--- NOTE | 2019-11-17 16:29 | Progress Notes ---
DATE: 11/17/2019 SUBJECTIVE: This is a 59-year-old male, hypersexual, masturbating in the room when I walk in, when I go in he continues to masturbate, making odd motions with his hands, his mouth, cursing, still noted to be impulsive, highly unpredictable, intermittently taking his medications, at times needing emergency dosing of medications. Complex case, hard to control symptoms. I will be filing a [employer] paper work today, selective with medications. ASSESSMENT: The patient remains symptomatic, can be agitated, aggressive. Medications were reviewed. Labs reviewed. Vitals were reviewed. Pulse rate is somewhat low at 46. PLAN: We will continue to monitor closely, monitor his pulse rate. We will file the [employer] paperwork. JOB# [id number]
[2019-11-18] MEDS: Pantoprazole 40 mg EC Tab PO SCH (06:29)
[2019-11-18] MEDS: Levothyroxine 0.025 Mg Tab PO SCH (06:29)
[2019-11-18] MEDS: Multivitamin w/ Minerals Tab PO SCH (09:02)
--- NOTE | 2019-11-18 16:32 | Internal Medicine Prog Note ---
Internal Medicine Subjective - Subjective Service Date: 11/18/19 Patient seen and examined:: without staff Patient is:: awake Per staff patient has:: no adverse event, no episodes of fall Internal Medicine Objective - Results Result Diagrams: 11/15/19 15:05 Recent Labs: Laboratory Last Values WBC 8.0 K/uL (4.8-10.8) 11/15/19 15:05 RBC 4.24 MIL/uL (4.2-6.2) 11/15/19 15:05 Hgb 13.4 g/dL (14.0-18.0) L 11/15/19 15:05 Hct 41.0 % (36-54) 11/15/19 15:05 MCV 97 fL (79.0-98.0) 11/15/19 15:05 MCH 32 pg (27-31) H 11/15/19 15:05 MCHC 33 % (32-36) 11/15/19 15:05 RDW 13.4 % (9.0-15.0) 11/15/19 15:05 Plt Count 233 K/uL (130-430) 11/15/19 15:05 MPV 8.5 fl (7.4-10.4) 11/15/19 15:05 Neut % (Auto) 64.1 % (40-70) 11/15/19 15:05 Lymph % (Auto) 27.6 % (20.5-51.5) 11/15/19 15:05 [place] % (Auto) 7.7 % (1.7-9.3) 11/15/19 15:05 Eos % (Auto) 0.3 % (0-4) 11/15/19 15:05 Baso % (Auto) 0.3 % (0.0-2.0) 11/15/19 15:05 Neut # (Auto) 5.1 K/uL (1.8-7.7) 11/15/19 15:05 Lymph # (Auto) 2.2 K/uL (1.0-5.5) 11/15/19 15:05 [place] # (Auto) 0.6 K/uL (0.0-1.0) 11/15/19 15:05 Eos # (Auto) 0.0 K/uL (0.0-0.4) 11/15/19 15:05 Baso # (Auto) 0.0 K/uL (0.0-0.2) 11/15/19 15:05 Triglycerides 60 mg/dL (30-150) 11/15/19 15:05 Cholesterol 160 mg/dL (<200) 11/15/19 15:05 LDL Cholesterol 106 mg/dL (0-129) 11/15/19 15:05 HDL Cholesterol 36 mg/dL (>45) L 11/15/19 15:05 - Physical Exam Vitals and I&O: Vital Signs Temp 97.6 F 11/18/19 14:00 Pulse 60 11/18/19 14:00 Resp 20 11/18/19 14:00 BP 109/69 11/18/19 14:00 Pulse Ox 94 11/18/19 14:00 Intake & Output 11/17/19 11/18/19 11/18/19 18:59 06:59 18:59 Intake Total 1000 120 Balance 1000 120 Intake: Oral 1000 120 Other: # Voids 4 1 # Bowel Movements 1 0 Active Medications: Current Medications Diphenhydramine HCl (Benadryl 50 Mg/Ml) 50 mg IM BID PRN PRN Reason: Agitation Stop: 01/17/20 15:56 Divalproex Sodium (Depakote Dr) 250 mg PO BID [facility]; Protocol Stop: 01/14/20 16:59 Last Admin: 11/18/19 09:02 Dose: 250 mg Haloperidol (Haldol) 5 mg PO BID [facility]; Protocol Stop: 01/17/20 16:59 Haloperidol Lactate (Haldol) 5 mg IM BID PRN PRN Reason: Agitation Stop: 01/17/20 15:53 Levothyroxine Sodium (Synthroid) 0.025 mg PO QDAC [facility] Stop: 01/15/20 07:29 Last Admin: 11/18/19 06:29 Dose: 0.025 mg Lorazepam (Ativan) 0.5 mg PO Q4HR PRN; Protocol PRN Reason: Anxiety Stop: 01/15/20 20:53 Last Admin: 11/18/19 03:16 Dose: 0.5 mg Magnesium Hydroxide (Milk Of Magnesia) 30 ml PO HS PRN PRN Reason: Constipation Pantoprazole Sodium (Protonix) 40 mg PO QDAC [facility] Stop: 01/15/20 07:29 Last Admin: 11/18/19 06:29 Dose: 40 mg Zolpidem Tartrate (Ambien) 5 mg PO HS PRN PRN Reason: Insomnia Stop: 01/15/20 20:52 Last Admin: 11/17/19 20:34 Dose: 5 mg General: weak HEENT: NC/AT, PERRLA, EOMI Neck: Supple Lungs: CTAB Cardiovascular: RRR, Normal S1, Normal S2 Abdomen: soft, non-tender Extremities: clear Neurological: no change Internal Medicine Assmt/Plan - Assessment Assessment: 1. Hypothyroidism 2. Hx of CVA - Plan Plan: check cmp continue supportive care d/w r.n. reviewed medical records. Nutritional Asmnt/Malnutr-PDOC - Dietary Evaluation Malnutrition Findings (Please click <Entered> for more info): Nutritional Asmnt/Malnutrition Start: 11/17/19 12: 52 Text: Status: Complete Freq: Protocol: Document 11/17/19 12:52 CHANDRA (Rec: 11/17/19 12:55 CHANDRA [email or web address] [id number]) Nutritional Asmnt/Malnutrition Patient General Information Nutritional Screening Moderate Risk Diagnosis Acute Agitation and Psychosis Pertinent Medical Hx/Surgical Hx Advanced Dementia, Hypothyroidism, Osteoarthritis , Chronic Pain, HTN, Schizophrenia Subjective Information Pt is a 59-year-old male admitted on 11/14 d/t Acute Agitation and Psychosis. Pt ate an estimated 60% of meals on first day here and refused lunch and dinner yesterday, eating only 25% breakfast Per Meal/Nutrition Activity Record . Dietary is currently providing an estimated 1800 kcals and 110 gm Pro. Pt came from SNF with reported poor appetite, will continue to monitor. Will provide Glucerna Hunger Smart TID until PO intake can meet estimated nutritional needs. Pt has no noted Hx DM, glucose 123 on admission with [facility] diet Rx. A1C pending. Anthropometrics HT: 57 WT: 142 LB (64.55 kg) BMI: 22.24 (normal) GI/ Skin Integrity GI: WNL, Soft, Flat, Non- tender BM: 8 x1 I/O: 620/Not Noted Skin: WNL, Intact Jono: 19 Diet Order: [facility] Estimated Energy Needs: ( Geriatric, CBW) 4985-1843 kcals (25-30 kcals/ kg) 65-80g Pro (1.0-1.2 g/kg) 4294-6662 ml (25-30 ml/kg) Current Diet Order/ Nutrition Support [facility] Pertinent Medications MOM (PRN), Protonix, Synthroid Pertinent Labs 11/14: Hgb/Hct 13.4/41.0, HDL 36 , Glucose 123, BUN/Cr 36/1.06, Urine ketones 3+, Urine Protein 1+ Nutritional Hx/Data Height 1.7 m Height (Calculated Centimeters) 170.2 Current Weight (lbs) 64.41 kg Weight (Calculated Kilograms) 64.4 Weight (Calculated Grams) 05111.1 [place] Body Weight 148 LB (67.27 kg) % [place] Body Weight 96 Body Mass Index (BMI) 22.2 Weight Status Approriate GI Symptoms Last BM 11/15 x1 Skin Integrity/Comment: Skin: WNL, Intact Jono: 19 Current %PO Poor (25-49%) Estimated Nutritional Goals BEE in Kcals: Using Current wt Calories/Kcals/Kg 25-30 Kcals Calculated 0602-9932 Protein: Using Current wt Protein g/k.0-1.2 Protein Calculated 65-80 Fluid: ml 0287-5698 ml (25-30 ml/kg) Nutritional Problem 1. Problem Problem Altered nutrition related labs Etiology r/t pathophysiological causes Signs/Symptoms: aeb labs (11/14) Glucose 123, BUN/Cr 36/1.06, Urine ketones 3+, Urine Protein 1+. Malnutrition Related to Morbid Obesity Malnutrition related to morbid obesity No Intervention/Recommendation Comments 1.Continue [facility] diet as tolerated. 2.Add Glucerna Hunger Smart TID (completed). Expected Outcomes/Goals Expected Outcomes/Goals 1.PO intake to meet 75% of estimated nutritional needs. 2.Monitor PO intake, wt, nutrition related labs, and skin integrity. 3.F/U as moderate risk in 3-5 days, 11/19-11/21.
--- NOTE | 2019-11-18 18:05 | Progress Notes ---
DATE: 11/18/2019 SUBJECTIVE: This is a 59-year-old male, disheveled, paranoid, labile, bizarre, selectively mute aggressive, sexually inappropriate, at times masturbating in the room and public places, throwing punches, elbows, trying to scratch, poor redirection, seen masturbating in the room with the door open. I tried to speak with the patient. He is still aggressive, agitated, cursing, talking to self, noted to be acting really bizarre, paranoid of others. Riese upheld. We will make changes to his medication orders. We will switch him over to Haldol Decanoate. Ongoing symptoms, safety concerns, concerns about his ability to really stay safe given the extent and severity of his current psychotic state, aggression and agitation. Medications were reviewed. Labs reviewed. Vitals were reviewed. PLAN: We will transition to Haldol Decanoate, Haldol p.o. for now, ongoing symptoms, safety concerns. JOB# [id number]
[2019-11-19] MEDS: Levothyroxine 0.025 Mg Tab PO SCH (06:34)
[2019-11-19] MEDS: Pantoprazole 40 mg EC Tab PO SCH (06:34)
[2019-11-19] MEDS: Multivitamin w/ Minerals Tab PO SCH (08:24)
--- NOTE | 2019-11-19 16:27 | Progress Notes ---
DATE: SUBJECTIVE: The patient was seen, chart reviewed, and discussed with staff. The patient continues to be actively psychotic, unpredictable, sexually inappropriate and often noted to be aggressive. He has, however, been compliant with medications, denying any side effects. PLAN: The patient continues to be aggressive and unpredictable, so that he will require continued inpatient care center treatment. We will monitor on a daily basis for response to medications and titrate medications as needed. [facility]# [id number]
[2019-11-20] MEDS: Pantoprazole 40 mg EC Tab PO SCH (06:34)
[2019-11-20] MEDS: Levothyroxine 0.025 Mg Tab PO SCH (06:34)
[2019-11-20] MEDS: Multivitamin w/ Minerals Tab PO SCH (08:41)
[2019-11-20] MEDS: Haloperidol Lactate 5 mg/mL 1mL Vial IM PRN (16:45)
--- NOTE | 2019-11-20 16:51 | Progress Notes ---
DATE: SUBJECTIVE: The patient was seen, chart reviewed, and discussed with staff. The patient continues to be very unpredictable with poor boundaries and sometimes can be quite aggressive or sexually inappropriate. He has, however, been redirectable, not required any p.r.n. medications. He has also been compliant with medications, denying any side effects. PLAN: The patient continues to be very aggressive with poor insight. It is felt that he will require inpatient care center and treatment. We will monitor on a daily basis for response to medications and titrate medications as needed. JOB# [id number]
[2019-11-21] MEDS: Pantoprazole 40 mg EC Tab PO SCH (06:38)
[2019-11-21] MEDS: Levothyroxine 0.025 Mg Tab PO SCH (06:38)
[2019-11-21] MEDS: Multivitamin w/ Minerals Tab PO SCH (08:35)
[2019-11-21 13:56] LABS: CALCIUM SERUM 8.9 mg/dL (8.4-10.2); CREATININE - SERUM 0.77 mg/dL (0.70-1.30)
[2019-11-21 13:57] LABS: BILIRUBIN,TOTAL 0.5 mg/dL (0.0-1.0); TOTAL PROTEIN,SERUM 7.6 g/dL (6.4-8.3)
[2019-11-21 15:01] LABS: HEMATOCRIT 40.3 % (36-54); HEMOGLOBIN 13.3 g/dL (14.0-18.0); MEAN CORPUSCULAR VOLUME 97 fL (79.0-98.0); RED BLOOD COUNT 4.17 MIL/uL (4.2-6.2); WHITE BLOOD COUNT 7.7 K/uL (4.8-10.8)
[2019-11-21 15:02] LABS: % NEUTROPHILS 65.9 % (40-70); BASOPHILS % (AUTO) 0.2 % (0.0-2.0); EOSINOPHILS % (AUTO) 0.5 % (0-4); LYMPHOCYTES % (AUTO) 26.5 % (20.5-51.5); MEAN CORPUSCULAR HEMOGLOBIN 32 pg (27-31); MEAN CORPUSCULAR HGB CONC 33 % (32-36); MONOCYTES # (AUTO) 0.5 K/uL (0.0-1.0); MONOCYTES % (AUTO) 6.9 % (1.7-9.3); NEUTROPHILS # (AUTO) 5.1 K/uL (1.8-7.7); PLATELET COUNT 207 K/uL (130-430); RED CELL DISTRIBUTION WIDTH 13.1 % (9.0-15.0)
[2019-11-21] MEDS: Haloperidol Lactate 5 mg/mL 1mL Vial IM PRN (16:36)
--- NOTE | 2019-11-21 17:30 | Internal Medicine Prog Note ---
Internal Medicine Subjective - Subjective Service Date: 11/21/19 Patient seen and examined:: without staff (non-verbal) Patient is:: awake Per staff patient has:: no adverse event, no episodes of fall Internal Medicine Objective - Results Result Diagrams: 11/21/19 12:10 11/21/19 12:10 Recent Labs: Laboratory Last Values WBC 7.7 K/uL (4.8-10.8) 11/21/19 12:10 RBC 4.17 MIL/uL (4.2-6.2) L 11/21/19 12:10 Hgb 13.3 g/dL (14.0-18.0) L 11/21/19 12:10 Hct 40.3 % (36-54) 11/21/19 12:10 MCV 97 fL (79.0-98.0) 11/21/19 12:10 MCH 32 pg (27-31) H 11/21/19 12:10 MCHC 33 % (32-36) 11/21/19 12:10 RDW 13.1 % (9.0-15.0) 11/21/19 12:10 Plt Count 207 K/uL (130-430) 11/21/19 12:10 MPV 8.9 fl (7.4-10.4) 11/21/19 12:10 Neut % (Auto) 65.9 % (40-70) 11/21/19 12:10 Lymph % (Auto) 26.5 % (20.5-51.5) 11/21/19 12:10 [place] % (Auto) 6.9 % (1.7-9.3) 11/21/19 12:10 Eos % (Auto) 0.5 % (0-4) 11/21/19 12:10 Baso % (Auto) 0.2 % (0.0-2.0) 11/21/19 12:10 Neut # (Auto) 5.1 K/uL (1.8-7.7) 11/21/19 12:10 Lymph # (Auto) 2.0 K/uL (1.0-5.5) 11/21/19 12:10 [place] # (Auto) 0.5 K/uL (0.0-1.0) 11/21/19 12:10 Eos # (Auto) 0.0 K/uL (0.0-0.4) 11/21/19 12:10 Baso # (Auto) 0.0 K/uL (0.0-0.2) 11/21/19 12:10 Sodium 136 mmol/L (136-145) 11/21/19 12:10 Potassium 4.0 mmol/L (3.5-5.1) 11/21/19 12:10 Chloride 103 mmol/L (98-107) 11/21/19 12:10 Carbon Dioxide 22 mmol/L (23-29) L 11/21/19 12:10 Anion Gap 15 (5-15) 11/21/19 12:10 BUN 26 mg/dL (8-21) H 11/21/19 12:10 Creatinine 0.77 mg/dL (0.70-1.30) 11/21/19 12:10 Glucose 89 mg/dL (70-99) 11/21/19 12:10 Calcium 8.9 mg/dL (8.4-10.2) 11/21/19 12:10 Total Bilirubin 0.5 mg/dL (0.0-1.0) 11/21/19 12:10 AST 44 U/L (10-37) H 11/21/19 12:10 ALT 39 U/L (12-78) 11/21/19 12:10 Alkaline Phosphatase 75 U/L (46-116) 11/21/19 12:10 Total Protein 7.6 g/dL (6.4-8.3) 11/21/19 12:10 Albumin 3.9 g/dL (3.4-5.0) 11/21/19 12:10 Triglycerides 60 mg/dL (30-150) 11/15/19 15:05 Cholesterol 160 mg/dL (<200) 11/15/19 15:05 LDL Cholesterol 106 mg/dL (0-129) 11/15/19 15:05 HDL Cholesterol 36 mg/dL (>45) L 11/15/19 15:05 TSH 1.37 uIU/ml (0.34-5.60) 11/21/19 12:10 - Physical Exam Vitals and I&O: Vital Signs Temp 97.9 F 11/21/19 06:40 Pulse 97 11/21/19 06:40 Resp 18 11/21/19 14:00 BP 118/84 11/20/19 14:00 Pulse Ox 98 11/21/19 06:40 Intake & Output 11/20/19 11/21/19 11/21/19 18:59 06:59 18:59 Intake Total 900 120 Balance 900 120 Intake: Oral 900 120 Other: # Voids 3 3 # Bowel Movements 0 1 Stool Characteristics Formed Brown Active Medications: Current Medications Diphenhydramine HCl (Benadryl 50 Mg/Ml) 50 mg IM BID PRN PRN Reason: Agitation Stop: 01/17/20 15:56 Last Admin: 11/21/19 16:36 Dose: 50 mg Divalproex Sodium (Depakote Dr) 250 mg PO BID [facility]; Protocol Stop: 01/14/20 16:59 Last Admin: 11/21/19 16:31 Dose: Not Given Haloperidol (Haldol) 5 mg PO BID [facility]; Protocol Stop: 01/17/20 16:59 Last Admin: 11/21/19 16:31 Dose: Not Given Haloperidol Decanoate (Haldol Dec) 100 mg IM QMONTH [facility]; Protocol Stop: 01/20/20 12:59 Last Admin: 11/21/19 13:14 Dose: 100 mg Haloperidol Lactate (Haldol) 5 mg IM BID PRN PRN Reason: Agitation Stop: 01/17/20 15:53 Last Admin: 11/21/19 16:36 Dose: 5 mg Levothyroxine Sodium (Synthroid) 0.025 mg PO QDAC [facility] Stop: 01/15/20 07:29 Last Admin: 11/21/19 06:38 Dose: 0.025 mg Lorazepam (Ativan) 0.5 mg PO Q4HR PRN; Protocol PRN Reason: Anxiety Stop: 01/15/20 20:53 Last Admin: 11/20/19 20:07 Dose: 0.5 mg Magnesium Hydroxide (Milk Of Magnesia) 30 ml PO HS PRN PRN Reason: Constipation Pantoprazole Sodium (Protonix) 40 mg PO QDAC [facility] Stop: 01/15/20 07:29 Last Admin: 11/21/19 06:38 Dose: 40 mg Zolpidem Tartrate (Ambien) 5 mg PO HS PRN PRN Reason: Insomnia Stop: 01/15/20 20:52 Last Admin: 11/20/19 22:36 Dose: 5 mg General: weak HEENT: NC/AT, PERRLA, EOMI Neck: Supple Lungs: CTAB Cardiovascular: RRR, Normal S1, Normal S2 Abdomen: soft, non-tender Extremities: clear Neurological: no change Internal Medicine Assmt/Plan - Assessment Assessment: 1. Hypothyroidism 2. Hx of CVA - Plan Plan: continue synthroid continue supportive care d/w r.n. reviewed medical records. Nutritional Asmnt/Malnutr-PDOC - Dietary Evaluation Malnutrition Findings (Please click <Entered> for more info): Nutritional Asmnt/Malnutrition Start: 11/17/19 12: 52 Text: Status: Complete Freq: Protocol: Document 11/17/19 12:52 CHANDRA (Rec: 11/17/19 12:55 CHANDRA [id number]) Nutritional Asmnt/Malnutrition Patient General Information Nutritional Screening Moderate Risk Diagnosis Acute Agitation and Psychosis Pertinent Medical Hx/Surgical Hx Advanced Dementia, Hypothyroidism, Osteoarthritis , Chronic Pain, HTN, Schizophrenia Subjective Information Pt is a 59-year-old male admitted on 11/14 d/t Acute Agitation and Psychosis. Pt ate an estimated 60% of meals on first day here and refused lunch and dinner yesterday, eating only 25% breakfast Per Meal/Nutrition Activity Record . Dietary is currently providing an estimated 1800 kcals and 110 gm Pro. Pt came from SNF with reported poor appetite, will continue to monitor. Will provide Glucerna Hunger Smart TID until PO intake can meet estimated nutritional needs. Pt has no noted Hx DM, glucose 123 on admission with [facility] diet Rx. A1C pending. Anthropometrics HT: 57 WT: 142 LB (64.55 kg) BMI: 22.24 (normal) GI/ Skin Integrity GI: WNL, Soft, Flat, Non- tender BM: 11/15 x1 I/O: 620/Not Noted Skin: WNL, Intact Jono: 19 Diet Order: [facility] Estimated Energy Needs: ( Geriatric, CBW) 5717-3215 kcals (25-30 kcals/ kg) 65-80g Pro (1.0-1.2 g/kg) 1022-2680 ml (25-30 ml/kg) Current Diet Order/ Nutrition Support [facility] Pertinent Medications MOM (PRN), Protonix, Synthroid Pertinent Labs 11/14: Hgb/Hct 13.4/41.0, HDL 36 , Glucose 123, BUN/Cr 36/1.06, Urine ketones 3+, Urine Protein 1+ Nutritional Hx/Data Height 1.7 m Height (Calculated Centimeters) 170.2 Current Weight (lbs) 64.41 kg Weight (Calculated Kilograms) 64.4 Weight (Calculated Grams) 06285.1 [place] Body Weight 148 LB (67.27 kg) % [place] Body Weight 96 Body Mass Index (BMI) 22.2 Weight Status Approriate GI Symptoms Last BM 11/15 x1 Skin Integrity/Comment: Skin: WNL, Intact Jono: 19 Current %PO Poor (25-49%) Estimated Nutritional Goals BEE in Kcals: Using Current wt Calories/Kcals/Kg 25-30 Kcals Calculated 6744-0473 Protein: Using Current wt Protein g/k.0-1.2 Protein Calculated 65-80 Fluid: ml 3999-7807 ml (25-30 ml/kg) Nutritional Problem 1. Problem Problem Altered nutrition related labs Etiology r/t pathophysiological causes Signs/Symptoms: aeb labs (11/14) Glucose 123, BUN/Cr 36/1.06, Urine ketones 3+, Urine Protein 1+. Malnutrition Related to Morbid Obesity Malnutrition related to morbid obesity No Intervention/Recommendation Comments 1.Continue [facility] diet as tolerated. 2.Add Glucerna Hunger Smart TID (completed). Expected Outcomes/Goals Expected Outcomes/Goals 1.PO intake to meet 75% of estimated nutritional needs. 2.Monitor PO intake, wt, nutrition related labs, and skin integrity. 3.F/U as moderate risk in 3-5 days, 11/19-11/21.
--- NOTE | 2019-11-21 23:24 | Progress Notes ---
DATE: 11/21/2019 SUBJECTIVE: The patient in the hospital, unpredictable, poor boundaries, still sexually aggressive, sexual inappropriate. He is calm right now, does not say anything, confused, unpredictable, concerns for striking out, still shaking his medications. He has taken a few doses of Haldol. I am going to transition over to Haldol Decanoate given ongoing concerns about compliance and how aggressive he gets, history of combative behaviors, impulsive, unpredictable. PLAN: We will continue inpatient monitoring. I am going to transition to Haldol Decanoate. JOB# [id number]
[2019-11-22] MEDS: Levothyroxine 0.025 Mg Tab PO SCH (06:39)
[2019-11-22] MEDS: Pantoprazole 40 mg EC Tab PO SCH (06:39)
[2019-11-22] MEDS: Multivitamin w/ Minerals Tab PO SCH (08:57)
--- NOTE | 2019-11-22 12:26 | Internal Medicine Prog Note ---
Internal Medicine Subjective - Subjective Service Date: 11/22/19 Patient seen and examined:: without staff Patient is:: awake Per staff patient has:: no adverse event, no episodes of fall Internal Medicine Objective - Results Result Diagrams: 11/21/19 12:10 11/21/19 12:10 Recent Labs: Laboratory Last Values WBC 7.7 K/uL (4.8-10.8) 11/21/19 12:10 RBC 4.17 MIL/uL (4.2-6.2) L 11/21/19 12:10 Hgb 13.3 g/dL (14.0-18.0) L 11/21/19 12:10 Hct 40.3 % (36-54) 11/21/19 12:10 MCV 97 fL (79.0-98.0) 11/21/19 12:10 MCH 32 pg (27-31) H 11/21/19 12:10 MCHC 33 % (32-36) 11/21/19 12:10 RDW 13.1 % (9.0-15.0) 11/21/19 12:10 Plt Count 207 K/uL (130-430) 11/21/19 12:10 MPV 8.9 fl (7.4-10.4) 11/21/19 12:10 Neut % (Auto) 65.9 % (40-70) 11/21/19 12:10 Lymph % (Auto) 26.5 % (20.5-51.5) 11/21/19 12:10 [place] % (Auto) 6.9 % (1.7-9.3) 11/21/19 12:10 Eos % (Auto) 0.5 % (0-4) 11/21/19 12:10 Baso % (Auto) 0.2 % (0.0-2.0) 11/21/19 12:10 Neut # (Auto) 5.1 K/uL (1.8-7.7) 11/21/19 12:10 Lymph # (Auto) 2.0 K/uL (1.0-5.5) 11/21/19 12:10 [place] # (Auto) 0.5 K/uL (0.0-1.0) 11/21/19 12:10 Eos # (Auto) 0.0 K/uL (0.0-0.4) 11/21/19 12:10 Baso # (Auto) 0.0 K/uL (0.0-0.2) 11/21/19 12:10 Sodium 136 mmol/L (136-145) 11/21/19 12:10 Potassium 4.0 mmol/L (3.5-5.1) 11/21/19 12:10 Chloride 103 mmol/L (98-107) 11/21/19 12:10 Carbon Dioxide 22 mmol/L (23-29) L 11/21/19 12:10 Anion Gap 15 (5-15) 11/21/19 12:10 BUN 26 mg/dL (8-21) H 11/21/19 12:10 Creatinine 0.77 mg/dL (0.70-1.30) 11/21/19 12:10 Glucose 89 mg/dL (70-99) 11/21/19 12:10 POC Glucose 135 MG/DL (70 - 105) H 11/22/19 10:52 Calcium 8.9 mg/dL (8.4-10.2) 11/21/19 12:10 Total Bilirubin 0.5 mg/dL (0.0-1.0) 11/21/19 12:10 AST 44 U/L (10-37) H 11/21/19 12:10 ALT 39 U/L (12-78) 11/21/19 12:10 Alkaline Phosphatase 75 U/L (46-116) 11/21/19 12:10 Total Protein 7.6 g/dL (6.4-8.3) 11/21/19 12:10 Albumin 3.9 g/dL (3.4-5.0) 11/21/19 12:10 Triglycerides 60 mg/dL (30-150) 11/15/19 15:05 Cholesterol 160 mg/dL (<200) 11/15/19 15:05 LDL Cholesterol 106 mg/dL (0-129) 11/15/19 15:05 HDL Cholesterol 36 mg/dL (>45) L 11/15/19 15:05 TSH 1.37 uIU/ml (0.34-5.60) 11/21/19 12:10 - Physical Exam Vitals and I&O: Vital Signs Temp 97.3 F 11/22/19 06:17 Pulse 56 11/22/19 06:17 Resp 18 11/22/19 07:35 BP 127/69 11/22/19 06:17 Pulse Ox 100 11/22/19 06:17 Intake & Output 11/21/19 11/22/19 11/22/19 18:59 06:59 18:59 Intake Total 1200 360 Balance 1200 360 Intake: Oral 1200 360 Other: # Voids 4 1 # Bowel Movements 1 0 Stool Characteristics Formed Brown Active Medications: Current Medications Diphenhydramine HCl (Benadryl 50 Mg/Ml) 50 mg IM BID PRN PRN Reason: Agitation Stop: 01/17/20 15:56 Last Admin: 11/21/19 16:36 Dose: 50 mg Divalproex Sodium (Depakote Dr) 250 mg PO BID [facility]; Protocol Stop: 01/14/20 16:59 Last Admin: 11/22/19 08:57 Dose: 250 mg Haloperidol (Haldol) 5 mg PO BID [facility]; Protocol Stop: 01/17/20 16:59 Last Admin: 11/22/19 08:57 Dose: 5 mg Haloperidol Decanoate (Haldol Dec) 100 mg IM QMONTH [facility]; Protocol Stop: 01/20/20 12:59 Last Admin: 11/21/19 13:14 Dose: 100 mg Haloperidol Lactate (Haldol) 5 mg IM BID PRN PRN Reason: Agitation Stop: 01/17/20 15:53 Last Admin: 11/21/19 16:36 Dose: 5 mg Levothyroxine Sodium (Synthroid) 0.025 mg PO QDAC [facility] Stop: 01/15/20 07:29 Last Admin: 11/22/19 06:39 Dose: 0.025 mg Lorazepam (Ativan) 0.5 mg PO Q4HR PRN; Protocol PRN Reason: Anxiety Stop: 01/15/20 20:53 Last Admin: 11/21/19 20:23 Dose: 0.5 mg Magnesium Hydroxide (Milk Of Magnesia) 30 ml PO HS PRN PRN Reason: Constipation Pantoprazole Sodium (Protonix) 40 mg PO QDAC [facility] Stop: 01/15/20 07:29 Last Admin: 11/22/19 06:39 Dose: 40 mg Zolpidem Tartrate (Ambien) 5 mg PO HS PRN PRN Reason: Insomnia Stop: 01/15/20 20:52 Last Admin: 11/21/19 21:45 Dose: 5 mg General: weak HEENT: NC/AT, PERRLA, EOMI Neck: Supple Lungs: CTAB Cardiovascular: RRR, Normal S1, Normal S2 Abdomen: soft, non-tender Extremities: clear Neurological: no change Internal Medicine Assmt/Plan - Assessment Assessment: 1. Hypothyroidism 2. Hx of CVA - Plan Plan: continue synthroid continue supportive care d/w r.n. reviewed medical records. Nutritional Asmnt/Malnutr-PDOC - Dietary Evaluation Malnutrition Findings (Please click <Entered> for more info): Nutritional Asmnt/Malnutrition Start: 11/17/19 12: 52 Text: Status: Complete Freq: Protocol: Document 11/17/19 12:52 CHANDRA (Rec: 11/17/19 12:55 CHANDRA [id number]) Nutritional Asmnt/Malnutrition Patient General Information Nutritional Screening Moderate Risk Diagnosis Acute Agitation and Psychosis Pertinent Medical Hx/Surgical Hx Advanced Dementia, Hypothyroidism, Osteoarthritis , Chronic Pain, HTN, Schizophrenia Subjective Information Pt is a 59-year-old male admitted on 11/14 d/t Acute Agitation and Psychosis. Pt ate an estimated 60% of meals on first day here and refused lunch and dinner yesterday, eating only 25% breakfast Per Meal/Nutrition Activity Record . Dietary is currently providing an estimated 1800 kcals and 110 gm Pro. Pt came from SNF with reported poor appetite, will continue to monitor. Will provide Glucerna Hunger Smart TID until PO intake can meet estimated nutritional needs. Pt has no noted Hx DM, glucose [address] [facility] diet Rx. A1C pending. Anthropometrics HT: 57 WT: 142 LB (64.55 kg) BMI: 22.24 (normal) GI/ Skin Integrity GI: WNL, Soft, Flat, Non- tender BM: 11/15 x1 I/O: 620/Not Noted Skin: WNL, Intact Jono: 19 Diet Order: [facility] Estimated Energy Needs: ( Geriatric, CBW) 6464-4495 kcals (25-30 kcals/ kg) 65-80g Pro (1.0-1.2 g/kg) 8639-8173 ml (25-30 ml/kg) Current Diet Order/ Nutrition Support [facility] Pertinent Medications MOM (PRN), Protonix, Synthroid Pertinent Labs 11/14: Hgb/Hct 13.4/41.0, HDL 36 , Glucose 123, BUN/Cr 36/1.06, Urine ketones 3+, Urine Protein 1+ Nutritional Hx/Data Height 1.7 m Height (Calculated Centimeters) 170.2 Current Weight (lbs) 64.41 kg Weight (Calculated Kilograms) 64.4 Weight (Calculated Grams) 36091.1 [place] Body Weight 148 LB (67.27 kg) % [place] Body Weight 96 Body Mass Index (BMI) 22.2 Weight Status Approriate GI Symptoms Last BM 11/15 x1 Skin Integrity/Comment: Skin: WNL, Intact Jono: 19 Current %PO Poor (25-49%) Estimated Nutritional Goals BEE in Kcals: Using Current wt Calories/Kcals/Kg 25-30 Kcals Calculated 8540-1027 Protein: Using Current wt Protein g/k.0-1.2 Protein Calculated 65-80 Fluid: ml 8514-9956 ml (25-30 ml/kg) Nutritional Problem 1. Problem Problem Altered nutrition related labs Etiology r/t pathophysiological causes Signs/Symptoms: aeb labs (11/14) Glucose 123, BUN/Cr 36/1.06, Urine ketones 3+, Urine Protein 1+. Malnutrition Related to Morbid Obesity Malnutrition related to morbid obesity No Intervention/Recommendation Comments 1.Continue CCHO diet as tolerated. 2.Add Glucerna Hunger Smart TID (completed). Expected Outcomes/Goals Expected Outcomes/Goals 1.PO intake to meet 75% of estimated nutritional needs. 2.Monitor PO intake, wt, nutrition related labs, and skin integrity. 3.F/U as moderate risk in 3-5 days, 11/19-11/21.
--- NOTE | 2019-11-23 01:48 | Progress Notes ---
DATE: 11/22/2019 SUBJECTIVE: A 59-year-old male who seems generally calmer, still unpredictable, talking to self, pacing back and forth, AO to name only, noted to be still intrusive, impulsive, and unpredictable. Any agitated or combative behaviors seem to be dissipating, decreasing, given Haldol Decanoate yesterday, tolerating fairly well and not as combative. Medications were reviewed. Labs were reviewed. Vitals were reviewed. ASSESSMENT: A 59-year-old male tolerant of treatment, ongoing behavioral disturbances. I tried to converse with him. He is pretty confused, disoriented, mumbling, hard to really follow his thought processes. PLAN: We will continue to monitor. JOB# [id number]
[2019-11-23] MEDS: Pantoprazole 40 mg EC Tab PO SCH (06:31)
[2019-11-23] MEDS: Levothyroxine 0.025 Mg Tab PO SCH (06:31)
[2019-11-23] MEDS: Multivitamin w/ Minerals Tab PO SCH (08:44)
[2019-11-23 13:03] LABS: A1C 5.7
--- NOTE | 2019-11-23 21:31 | Internal Medicine Prog Note ---
Internal Medicine Subjective - Subjective Service Date: 11/23/19 Patient seen and examined:: without staff Patient is:: awake Per staff patient has:: no adverse event, no episodes of fall Internal Medicine Objective - Results Result Diagrams: 11/21/19 12:10 11/21/19 12:10 Recent Labs: Laboratory Last Values WBC 7.7 K/uL (4.8-10.8) 11/21/19 12:10 RBC 4.17 MIL/uL (4.2-6.2) L 11/21/19 12:10 Hgb 13.3 g/dL (14.0-18.0) L 11/21/19 12:10 Hct 40.3 % (36-54) 11/21/19 12:10 MCV 97 fL (79.0-98.0) 11/21/19 12:10 MCH 32 pg (27-31) H 11/21/19 12:10 MCHC 33 % (32-36) 11/21/19 12:10 RDW 13.1 % (9.0-15.0) 11/21/19 12:10 Plt Count 207 K/uL (130-430) 11/21/19 12:10 MPV 8.9 fl (7.4-10.4) 11/21/19 12:10 Neut % (Auto) 65.9 % (40-70) 11/21/19 12:10 Lymph % (Auto) 26.5 % (20.5-51.5) 11/21/19 12:10 [place] % (Auto) 6.9 % (1.7-9.3) 11/21/19 12:10 Eos % (Auto) 0.5 % (0-4) 11/21/19 12:10 Baso % (Auto) 0.2 % (0.0-2.0) 11/21/19 12:10 Neut # (Auto) 5.1 K/uL (1.8-7.7) 11/21/19 12:10 Lymph # (Auto) 2.0 K/uL (1.0-5.5) 11/21/19 12:10 [place] # (Auto) 0.5 K/uL (0.0-1.0) 11/21/19 12:10 Eos # (Auto) 0.0 K/uL (0.0-0.4) 11/21/19 12:10 Baso # (Auto) 0.0 K/uL (0.0-0.2) 11/21/19 12:10 Sodium 136 mmol/L (136-145) 11/21/19 12:10 Potassium 4.0 mmol/L (3.5-5.1) 11/21/19 12:10 Chloride 103 mmol/L (98-107) 11/21/19 12:10 Carbon Dioxide 22 mmol/L (23-29) L 11/21/19 12:10 Anion Gap 15 (5-15) 11/21/19 12:10 BUN 26 mg/dL (8-21) H 11/21/19 12:10 Creatinine 0.77 mg/dL (0.70-1.30) 11/21/19 12:10 Glucose 89 mg/dL (70-99) 11/21/19 12:10 POC Glucose 135 MG/DL (70 - 105) H 11/22/19 10:52 Calcium 8.9 mg/dL (8.4-10.2) 11/21/19 12:10 Total Bilirubin 0.5 mg/dL (0.0-1.0) 11/21/19 12:10 AST 44 U/L (10-37) H 11/21/19 12:10 ALT 39 U/L (12-78) 11/21/19 12:10 Alkaline Phosphatase 75 U/L (46-116) 11/21/19 12:10 Total Protein 7.6 g/dL (6.4-8.3) 11/21/19 12:10 Albumin 3.9 g/dL (3.4-5.0) 11/21/19 12:10 Triglycerides 60 mg/dL (30-150) 11/15/19 15:05 Cholesterol 160 mg/dL (<200) 11/15/19 15:05 LDL Cholesterol 106 mg/dL (0-129) 11/15/19 15:05 HDL Cholesterol 36 mg/dL (>45) L 11/15/19 15:05 TSH 1.37 uIU/ml (0.34-5.60) 11/21/19 12:10 Coronavirus (PCR) Negative (Negative) 11/21/19 12:05 - Physical Exam Vitals and I&O: Vital Signs Temp 98 F 11/23/19 20:00 Pulse 49 11/23/19 20:00 Resp 18 11/23/19 20:00 BP 138/71 11/23/19 20:00 Pulse Ox 97 11/23/19 20:00 Intake & Output 11/23/19 11/23/19 11/24/19 06:59 18:59 06:59 Intake Total 480 950 Balance 480 950 Intake: Oral 480 950 Other: # Voids 1 Stool Characteristics Formed Brown Active Medications: Current Medications Diphenhydramine HCl (Benadryl 50 Mg/Ml) 50 mg IM BID PRN PRN Reason: Agitation Stop: 01/17/20 15:56 Last Admin: 11/21/19 16:36 Dose: 50 mg Divalproex Sodium (Depakote Dr) 250 mg PO BID ANDI; Protocol Stop: 01/14/20 16:59 Last Admin: 11/23/19 16:09 Dose: 250 mg Haloperidol (Haldol) 5 mg PO BID [facility]I; Protocol Stop: 01/17/20 16:59 Last Admin: 11/23/19 16:09 Dose: 5 mg Haloperidol Decanoate (Haldol Dec) 100 mg IM QMONTH ANDI; Protocol Stop: 01/20/20 12:59 Last Admin: 11/21/19 13:14 Dose: 100 mg Haloperidol Lactate (Haldol) 5 mg IM BID PRN PRN Reason: Agitation Stop: 01/17/20 15:53 Last Admin: 11/21/19 16:36 Dose: 5 mg Levothyroxine Sodium (Synthroid) 0.025 mg PO QDAC ANDI Stop: 01/15/20 07:29 Last Admin: 11/23/19 06:31 Dose: 0.025 mg Lorazepam (Ativan) 0.5 mg PO Q4HR PRN; Protocol PRN Reason: Anxiety Stop: 01/15/20 20:53 Last Admin: 11/22/19 20:57 Dose: 0.5 mg Magnesium Hydroxide (Milk Of Magnesia) 30 ml PO HS PRN PRN Reason: Constipation Pantoprazole Sodium (Protonix) 40 mg PO QDAC ANDI Stop: 01/15/20 07:29 Last Admin: 11/23/19 06:31 Dose: 40 mg Zolpidem Tartrate (Ambien) 5 mg PO HS PRN PRN Reason: Insomnia Stop: 01/15/20 20:52 Last Admin: 11/21/19 21:45 Dose: 5 mg General: weak HEENT: NC/AT, PERRLA, EOMI Neck: Supple Lungs: CTAB Cardiovascular: RRR, Normal S1, Normal S2 Abdomen: soft, non-tender Extremities: clear Neurological: no change Internal Medicine Assmt/Plan - Assessment Assessment: 1. Hypothyroidism 2. Hx of CVA - Plan Plan: continue synthroid continue supportive care d/w r.n. reviewed medical records. Nutritional Asmnt/Malnutr-PDOC - Dietary Evaluation Malnutrition Findings (Please click <Entered> for more info): Nutritional Asmnt/Malnutrition Start: 11/17/19 12: 52 Text: Status: Complete Freq: Protocol: Document 11/17/19 12:52 CHANDRA (Rec: 11/17/19 12:55 CHANDRA [id number]) Nutritional Asmnt/Malnutrition Patient General Information Nutritional Screening Moderate Risk Diagnosis Acute Agitation and Psychosis Pertinent Medical Hx/Surgical Hx Advanced Dementia, Hypothyroidism, Osteoarthritis , Chronic Pain, HTN, Schizophrenia Subjective Information Pt is a 59-year-old male admitted on 11/14 d/t Acute Agitation and Psychosis. Pt ate an estimated 60% of meals on first day here and refused lunch and dinner yesterday, eating only 25% breakfast Per Meal/Nutrition Activity Record . Dietary is currently providing an estimated 1800 kcals and 110 gm Pro. Pt came from SNF with reported poor appetite, will continue to monitor. Will provide Glucerna Hunger Smart TID until PO intake can meet estimated nutritional needs. Pt has no noted Hx DM, glucose 123 on admission with [facility] [place] diet Rx. A1C pending. Anthropometrics HT: 57 WT: 142 LB (64.55 kg) BMI: 22.24 (normal) GI/ Skin Integrity GI: WNL, Soft, Flat, Non- tender BM: 11/15 x1 I/O: 620/Not Noted Skin: WNL, Intact Jono: 19 Diet Order: [facility] [place] Estimated Energy Needs: ( Geriatric, CBW) 1959-1131 kcals (25-30 kcals/ kg) 65-80g Pro (1.0-1.2 g/kg) 5371-6648 ml (25-30 ml/kg) Current Diet Order/ Nutrition Support [facility] [place] Pertinent Medications MOM (PRN), Protonix, Synthroid Pertinent Labs 7/7: Hgb/Hct 13.4/41.0, HDL 36 , Glucose 123, BUN/Cr 36/1.06, Urine ketones 3+, Urine Protein 1+ Nutritional Hx/Data Height 1.7 m Height (Calculated Centimeters) 170.2 Current Weight (lbs) 64.41 kg Weight (Calculated Kilograms) 64.4 Weight (Calculated Grams) 87778.1 [place] Body Weight 148 LB (67.27 kg) % [place] Body Weight 96 Body Mass Index (BMI) 22.2 Weight Status Approriate GI Symptoms Last BM 11/15 x1 Skin Integrity/Comment: Skin: WNL, Intact Jono: 19 Current %PO Poor (25-49%) Estimated Nutritional Goals BEE in Kcals: Using Current wt Calories/Kcals/Kg 25-30 Kcals Calculated 4614-7383 Protein: Using Current wt Protein g/k.0-1.2 Protein Calculated 65-80 Fluid: ml 5708-2732 ml (25-30 ml/kg) Nutritional Problem 1. Problem Problem Altered nutrition related labs Etiology r/t pathophysiological causes Signs/Symptoms: aeb labs (11/14) Glucose 123, BUN/Cr 36/1.06, Urine ketones 3+, Urine Protein 1+. Malnutrition Related to Morbid Obesity Malnutrition related to morbid obesity No Intervention/Recommendation Comments 1.Continue [facility] diet as tolerated. 2.Add Glucerna Hunger Smart TID (completed). Expected Outcomes/Goals Expected Outcomes/Goals 1.PO intake to meet 75% of estimated nutritional needs. 2.Monitor PO intake, wt, nutrition related labs, and skin integrity. 3.F/U as moderate risk in 3-5 days, 11/19-11/21.
[2019-11-24] MEDS: Levothyroxine 0.025 Mg Tab PO SCH (06:36)
[2019-11-24] MEDS: Pantoprazole 40 mg EC Tab PO SCH (06:36)
[2019-11-24] MEDS: Multivitamin w/ Minerals Tab PO SCH (08:10)
--- NOTE | 2019-11-24 12:27 | Progress Notes ---
DATE: 11/23/2019 SUBJECTIVE: A 59-year-old male who remains aggressive, sometimes agitated, sexually inappropriate at times. Staff watching him closely. He has been inappropriate and sometimes posture ____ boxes. Generally calmer, still mumbling to self, psychotic appearing. Medications were reviewed. Labs reviewed. Vitals were reviewed. ASSESSMENT: A 59-year-old male with ongoing concerns for the safety of those around him. Continue Haldol. JOB# [id number]
--- NOTE | 2019-11-24 14:02 | Internal Medicine Prog Note ---
Internal Medicine Subjective - Subjective Service Date: 11/24/19 Patient seen and examined:: without staff Patient is:: awake, non-verbal Per staff patient has:: no adverse event, no episodes of fall Internal Medicine Objective - Results Result Diagrams: 11/21/19 12:10 11/21/19 12:10 Recent Labs: Laboratory Last Values WBC 7.7 K/uL (4.8-10.8) 11/21/19 12:10 RBC 4.17 MIL/uL (4.2-6.2) L 11/21/19 12:10 Hgb 13.3 g/dL (14.0-18.0) L 11/21/19 12:10 Hct 40.3 % (36-54) 11/21/19 12:10 MCV 97 fL (79.0-98.0) 11/21/19 12:10 MCH 32 pg (27-31) H 11/21/19 12:10 MCHC 33 % (32-36) 11/21/19 12:10 RDW 13.1 % (9.0-15.0) 11/21/19 12:10 Plt Count 207 K/uL (130-430) 11/21/19 12:10 MPV 8.9 fl (7.4-10.4) 11/21/19 12:10 Neut % (Auto) 65.9 % (40-70) 11/21/19 12:10 Lymph % (Auto) 26.5 % (20.5-51.5) 11/21/19 12:10 [place] % (Auto) 6.9 % (1.7-9.3) 11/21/19 12:10 Eos % (Auto) 0.5 % (0-4) 11/21/19 12:10 Baso % (Auto) 0.2 % (0.0-2.0) 11/21/19 12:10 Neut # (Auto) 5.1 K/uL (1.8-7.7) 11/21/19 12:10 Lymph # (Auto) 2.0 K/uL (1.0-5.5) 11/21/19 12:10 [place] # (Auto) 0.5 K/uL (0.0-1.0) 11/21/19 12:10 Eos # (Auto) 0.0 K/uL (0.0-0.4) 11/21/19 12:10 Baso # (Auto) 0.0 K/uL (0.0-0.2) 11/21/19 12:10 Sodium 136 mmol/L (136-145) 11/21/19 12:10 Potassium 4.0 mmol/L (3.5-5.1) 11/21/19 12:10 Chloride 103 mmol/L (98-107) 11/21/19 12:10 Carbon Dioxide 22 mmol/L (23-29) L 11/21/19 12:10 Anion Gap 15 (5-15) 11/21/19 12:10 BUN 26 mg/dL (8-21) H 11/21/19 12:10 Creatinine 0.77 mg/dL (0.70-1.30) 11/21/19 12:10 Glucose 89 mg/dL (70-99) 11/21/19 12:10 POC Glucose 135 MG/DL (70 - 105) H 11/22/19 10:52 Calcium 8.9 mg/dL (8.4-10.2) 11/21/19 12:10 Total Bilirubin 0.5 mg/dL (0.0-1.0) 11/21/19 12:10 AST 44 U/L (10-37) H 11/21/19 12:10 ALT 39 U/L (12-78) 11/21/19 12:10 Alkaline Phosphatase 75 U/L (46-116) 11/21/19 12:10 Total Protein 7.6 g/dL (6.4-8.3) 11/21/19 12:10 Albumin 3.9 g/dL (3.4-5.0) 11/21/19 12:10 Triglycerides 60 mg/dL (30-150) 11/15/19 15:05 Cholesterol 160 mg/dL (<200) 11/15/19 15:05 LDL Cholesterol 106 mg/dL (0-129) 11/15/19 15:05 HDL Cholesterol 36 mg/dL (>45) L 11/15/19 15:05 TSH 1.37 uIU/ml (0.34-5.60) 11/21/19 12:10 Coronavirus (PCR) Negative (Negative) 11/21/19 12:05 - Physical Exam Vitals and I&O: Vital Signs Temp 98.2 F 11/24/19 06:00 Pulse 57 11/24/19 06:00 Resp 19 11/24/19 08:00 BP 132/61 11/24/19 06:00 Pulse Ox 100 11/24/19 06:00 Intake & Output 11/23/19 11/24/19 11/24/19 18:59 06:59 18:59 Intake Total 950 120 Balance 950 120 Intake: Oral 950 120 Other: # Voids 2 # Bowel Movements 0 Stool Characteristics Formed Formed Brown Brown Active Medications: Current Medications Diphenhydramine HCl (Benadryl 50 Mg/Ml) 50 mg IM BID PRN PRN Reason: Agitation Stop: 01/17/20 15:56 Last Admin: 11/21/19 16:36 Dose: 50 mg Divalproex Sodium (Depakote Dr) 250 mg PO BID [facility]; Protocol Stop: 01/14/20 16:59 Last Admin: 11/24/19 08:10 Dose: 250 mg Haloperidol (Haldol) 5 mg PO BID [facility]; Protocol Stop: 01/17/20 16:59 Last Admin: 11/24/19 08:11 Dose: 5 mg Haloperidol Decanoate (Haldol Dec) 100 mg IM QMONTH ANDI; Protocol Stop: 01/20/20 12:59 Last Admin: 11/21/19 13:14 Dose: 100 mg Haloperidol Lactate (Haldol) 5 mg IM BID PRN PRN Reason: Agitation Stop: 01/17/20 15:53 Last Admin: 11/21/19 16:36 Dose: 5 mg Levothyroxine Sodium (Synthroid) 0.025 mg PO QDAC ANDI Stop: 01/15/20 07:29 Last Admin: 11/24/19 06:36 Dose: 0.025 mg Lorazepam (Ativan) 0.5 mg PO Q4HR PRN; Protocol PRN Reason: Anxiety Stop: 01/15/20 20:53 Last Admin: 11/22/19 20:57 Dose: 0.5 mg Magnesium Hydroxide (Milk Of Magnesia) 30 ml PO HS PRN PRN Reason: Constipation Pantoprazole Sodium (Protonix) 40 mg PO QDAC ANDI Stop: 01/15/20 07:29 Last Admin: 11/24/19 06:36 Dose: 40 mg Paroxetine HCl (Paxil) 10 mg PO DAILY ANDI; Protocol Stop: 01/24/20 08:59 Zolpidem Tartrate (Ambien) 5 mg PO HS PRN PRN Reason: Insomnia Stop: 01/15/20 20:52 Last Admin: 11/21/19 21:45 Dose: 5 mg General: weak HEENT: NC/AT, PERRLA, EOMI Neck: Supple Lungs: CTAB Cardiovascular: RRR, Normal S1, Normal S2 Abdomen: soft, non-tender Extremities: clear Neurological: no change Internal Medicine Assmt/Plan - Assessment Assessment: 1. Hypothyroidism 2. Hx of CVA - Plan Plan: continue synthroid continue supportive care d/w r.n. reviewed medical records. Nutritional Asmnt/Malnutr-PDOC - Dietary Evaluation Malnutrition Findings (Please click <Entered> for more info): Nutritional Asmnt/Malnutrition Start: 11/17/19 12: 52 Text: Status: Complete Freq: Protocol: Document 11/17/19 12:52 CHANDRA (Rec: 11/17/19 12:55 CHANDRA [id number]) Nutritional Asmnt/Malnutrition Patient General Information Nutritional Screening Moderate Risk Diagnosis Acute Agitation and Psychosis Pertinent Medical Hx/Surgical Hx Advanced Dementia, Hypothyroidism, Osteoarthritis , Chronic Pain, HTN, Schizophrenia Subjective Information Pt is a 59-year-old male admitted on 11/14 d/t Acute Agitation and Psychosis. Pt ate an estimated 60% of meals on first day here and refused lunch and dinner yesterday, eating only 25% breakfast Per Meal/Nutrition Activity Record . Dietary is currently providing an estimated 1800 kcals and 110 gm Pro. Pt came from SNF with reported poor appetite, will continue to monitor. Will provide Glucerna Hunger Smart TID until PO intake can meet estimated nutritional needs. Pt has no noted Hx DM, glucose 123 on admission with [facility] diet Rx. A1C pending. Anthropometrics HT: 57 WT: 142 LB (64.55 kg) BMI: 22.24 (normal) GI/ Skin Integrity GI: WNL, Soft, Flat, Non- tender BM: 7/8 x1 I/O: 620/Not Noted Skin: WNL, Intact Jono: 19 Diet Order: [facility] Estimated Energy Needs: ( Geriatric, CBW) 2006-1964 kcals (25-30 kcals/ kg) 65-80g Pro (1.0-1.2 g/kg) 8116-7203 ml (25-30 ml/kg) Current Diet Order/ [facility] Pertinent Medications MOM (PRN), Protonix, Synthroid Pertinent Labs 11/14: Hgb/Hct 13.4/41.0, HDL 36 , Glucose 123, BUN/Cr 36/1.06, Urine ketones 3+, Urine Protein 1+ Nutritional Hx/Data Height 1.7 m Height (Calculated Centimeters) 170.2 Current Weight (lbs) 64.41 kg Weight (Calculated Kilograms) 64.4 Weight (Calculated Grams) 92315.1 [place] Body Weight 148 LB (67.27 kg) % [place] Body Weight 96 Body Mass Index (BMI) 22.2 Weight Status Approriate GI Symptoms Last BM 11/15 x1 Skin Integrity/Comment: Skin: WNL, Intact Jono: 19 Current %PO Poor (25-49%) Estimated Nutritional Goals BEE in Kcals: Using Current wt Calories/Kcals/Kg 25-30 Kcals Calculated 0788-9817 Protein: Using Current wt Protein g/k.0-1.2 Protein Calculated 65-80 Fluid: ml 1515-3760 ml (25-30 ml/kg) Nutritional Problem 1. Problem Problem Altered nutrition related labs Etiology r/t pathophysiological causes Signs/Symptoms: aeb labs (11/14) Glucose 123, BUN/Cr 36/1.06, Urine ketones 3+, Urine Protein 1+. Malnutrition Related to Morbid Obesity Malnutrition related to morbid obesity No Intervention/Recommendation Comments 1.Continue [facility] diet as tolerated. 2.Add Glucerna Hunger Smart TID (completed). Expected Outcomes/Goals Expected Outcomes/Goals 1.PO intake to meet 75% of estimated nutritional needs. 2.Monitor PO intake, wt, nutrition related labs, and skin integrity. 3.F/U as moderate risk in 3-5 days, 11/19-11/21.
--- NOTE | 2019-11-24 23:40 | Progress Notes ---
DATE: 11/24/2019 The patient in the hospital, slept about 6 hours, remains withdrawn, odd, walking around the room, mumbling to self, seems to be AO to name only on exam, still masturbating in his room on several occasions, but at least he is not doing it publicly, still labile, can be combative. Concerns for hypersexuality, but no noted issues thus far. Currently on dosing of Depakote, also Haldol, Haldol Decanoate. We will continue inpatient monitoring. Still restless, anxious, hypersexual, impulsive, unpredictable. Add an SSRI to his regimen for anxiety and mood symptoms. JOB# [id number]
[2019-11-25] MEDS: Pantoprazole 40 mg EC Tab PO SCH (06:35)
[2019-11-25] MEDS: Levothyroxine 0.025 Mg Tab PO SCH (06:35)
[2019-11-25] MEDS: Multivitamin w/ Minerals Tab PO SCH (08:20)
--- NOTE | 2019-11-25 12:49 | Progress Notes ---
DATE: 11/25/2019 SUBJECTIVE: This is a 67-year-old male in the hospital, still noted to be sometimes unruly shadowboxes, but generally calmer, AO to name only, does not really give me much information, does take medications, but sometimes pretending to swallow the medication, seeking them, but he is on a long-acting injectable. Riese upheld. Still hypersexual, sometimes masturbates in his room, was doing it in more open on public spaces, needing a higher level of prompting, redirection, refusing to take a shower, very oppositional. Medications reviewed. Labs reviewed. Vitals were reviewed. Blood pressure 119/65, pulse of 54. ASSESSMENT: The patient is still unruly, poor ADLs, ambivalent about medications, currently on dosing of Paxil, titrating his dosing of Paxil to b.i.d. dosing for anxiety symptoms. We will continue to monitor, attempt to speak with the patient, spent time with the patient, but it was quite difficult. He does not say too much. [facility]# [id number]
--- NOTE | 2019-11-25 13:44 | Internal Medicine Prog Note ---
Internal Medicine Subjective - Subjective Service Date: 11/25/19 Patient seen and examined:: without staff Patient is:: awake, non-verbal Per staff patient has:: no adverse event, no episodes of fall Internal Medicine Objective - Results Result Diagrams: 11/21/19 12:10 11/21/19 12:10 Recent Labs: Laboratory Last Values WBC 7.7 K/uL (4.8-10.8) 11/21/19 12:10 RBC 4.17 MIL/uL (4.2-6.2) L 11/21/19 12:10 Hgb 13.3 g/dL (14.0-18.0) L 11/21/19 12:10 Hct 40.3 % (36-54) 11/21/19 12:10 MCV 97 fL (79.0-98.0) 11/21/19 12:10 MCH 32 pg (27-31) H 11/21/19 12:10 MCHC 33 % (32-36) 11/21/19 12:10 RDW 13.1 % (9.0-15.0) 11/21/19 12:10 Plt Count 207 K/uL (130-430) 11/21/19 12:10 MPV 8.9 fl (7.4-10.4) 11/21/19 12:10 Neut % (Auto) 65.9 % (40-70) 11/21/19 12:10 Lymph % (Auto) 26.5 % (20.5-51.5) 11/21/19 12:10 [place] % (Auto) 6.9 % (1.7-9.3) 11/21/19 12:10 Eos % (Auto) 0.5 % (0-4) 11/21/19 12:10 Baso % (Auto) 0.2 % (0.0-2.0) 11/21/19 12:10 Neut # (Auto) 5.1 K/uL (1.8-7.7) 11/21/19 12:10 Lymph # (Auto) 2.0 K/uL (1.0-5.5) 11/21/19 12:10 [place] # (Auto) 0.5 K/uL (0.0-1.0) 11/21/19 12:10 Eos # (Auto) 0.0 K/uL (0.0-0.4) 11/21/19 12:10 Baso # (Auto) 0.0 K/uL (0.0-0.2) 11/21/19 12:10 Sodium 136 mmol/L (136-145) 11/21/19 12:10 Potassium 4.0 mmol/L (3.5-5.1) 11/21/19 12:10 Chloride 103 mmol/L (98-107) 11/21/19 12:10 Carbon Dioxide 22 mmol/L (23-29) L 11/21/19 12:10 Anion Gap 15 (5-15) 11/21/19 12:10 BUN 26 mg/dL (8-21) H 11/21/19 12:10 Creatinine 0.77 mg/dL (0.70-1.30) 11/21/19 12:10 Glucose 89 mg/dL (70-99) 11/21/19 12:10 POC Glucose 135 MG/DL (70 - 105) H 11/22/19 10:52 Calcium 8.9 mg/dL (8.4-10.2) 11/21/19 12:10 Total Bilirubin 0.5 mg/dL (0.0-1.0) 11/21/19 12:10 AST 44 U/L (10-37) H 11/21/19 12:10 ALT 39 U/L (12-78) 11/21/19 12:10 Alkaline Phosphatase 75 U/L (46-116) 11/21/19 12:10 Total Protein 7.6 g/dL (6.4-8.3) 11/21/19 12:10 Albumin 3.9 g/dL (3.4-5.0) 11/21/19 12:10 Triglycerides 60 mg/dL (30-150) 11/15/19 15:05 Cholesterol 160 mg/dL (<200) 11/15/19 15:05 LDL Cholesterol 106 mg/dL (0-129) 11/15/19 15:05 HDL Cholesterol 36 mg/dL (>45) L 11/15/19 15:05 TSH 1.37 uIU/ml (0.34-5.60) 11/21/19 12:10 Coronavirus (PCR) Negative (Negative) 11/21/19 12:05 - Physical Exam Vitals and I&O: Vital Signs Temp 97.1 F 11/25/19 06:11 Pulse 50 11/25/19 06:11 Resp 18 11/25/19 08:00 BP 129/72 11/25/19 06:11 Pulse Ox 98 11/25/19 06:11 Intake & Output 11/24/19 11/25/19 11/25/19 18:59 06:59 18:59 Intake Total 1000 240 Balance 1000 240 Intake: Oral 1000 240 Other: # Voids 4 2 # Bowel Movements 1 Stool Characteristics Formed Formed Formed Brown Brown Brown Active Medications: Current Medications Diphenhydramine HCl (Benadryl 50 Mg/Ml) 50 mg IM BID PRN PRN Reason: Agitation Stop: 01/17/20 15:56 Last Admin: 11/21/19 16:36 Dose: 50 mg Divalproex Sodium (Depakote Dr) 250 mg PO BID [facility]; Protocol Stop: 01/14/20 16:59 Last Admin: 11/25/19 08:19 Dose: 250 mg Haloperidol (Haldol) 5 mg PO BID ANDI; Protocol Stop: 01/17/20 16:59 Last Admin: 11/25/19 08:19 Dose: 5 mg Haloperidol Decanoate (Haldol Dec) 100 mg IM QMONTH ANDI; Protocol Stop: 01/20/20 12:59 Last Admin: 11/21/19 13:14 Dose: 100 mg Haloperidol Lactate (Haldol) 5 mg IM BID PRN PRN Reason: Agitation Stop: 01/17/20 15:53 Last Admin: 11/21/19 16:36 Dose: 5 mg Levothyroxine Sodium (Synthroid) 0.025 mg PO QDAC ANDI Stop: 01/15/20 07:29 Last Admin: 11/25/19 06:35 Dose: 0.025 mg Lorazepam (Ativan) 0.5 mg PO Q4HR PRN; Protocol PRN Reason: Anxiety Stop: 01/15/20 20:53 Last Admin: 11/25/19 08:21 Dose: 0.5 mg Magnesium Hydroxide (Milk Of Magnesia) 30 ml PO HS PRN PRN Reason: Constipation Pantoprazole Sodium (Protonix) 40 mg PO QDAC ANDI Stop: 01/15/20 07:29 Last Admin: 11/25/19 06:35 Dose: 40 mg Paroxetine HCl (Paxil) 10 mg PO BID [facility]; Protocol Stop: 01/24/20 16:59 Zolpidem Tartrate (Ambien) 5 mg PO HS PRN PRN Reason: Insomnia Stop: 01/15/20 20:52 Last Admin: 11/21/19 21:45 Dose: 5 mg General: weak HEENT: NC/AT, PERRLA, EOMI Neck: Supple Lungs: CTAB Cardiovascular: RRR, Normal S1, Normal S2 Abdomen: soft, non-tender Extremities: clear Neurological: no change Internal Medicine Assmt/Plan - Assessment Assessment: 1. Hypothyroidism 2. Hx of CVA - Plan Plan: continue synthroid continue supportive care d/w r.n. reviewed medical records. Nutritional Asmnt/Malnutr-PDOC - Dietary Evaluation Malnutrition Findings (Please click <Entered> for more info): Nutritional Asmnt/Malnutrition Start: 11/17/19 12: 52 Text: Status: Complete Freq: Protocol: Document 11/17/19 12:52 CHANDRA (Rec: 11/17/19 12:55 CHANDRA [id number]) Nutritional Asmnt/Malnutrition Patient General Information Nutritional Screening Moderate Risk Diagnosis Acute Agitation and Psychosis Pertinent Medical Hx/Surgical Hx Advanced Dementia, Hypothyroidism, Osteoarthritis , Chronic Pain, HTN, Schizophrenia Subjective Information Pt is a 59-year-old male admitted on 11/14 d/t Acute Agitation and Psychosis. Pt ate an estimated 60% of meals on first day here and refused lunch and dinner yesterday, eating only 25% breakfast Per Meal/Nutrition Activity Record . Dietary is currently providing an estimated 1800 kcals and 110 gm Pro. Pt came from SNF with reported poor appetite, will continue to monitor. Will provide Glucerna Hunger Smart TID until PO intake can meet estimated nutritional needs. Pt has no noted Hx DM, glucose 123 on admission with [facility] diet Rx. A1C pending. Anthropometrics HT: 57 WT: 142 LB (64.55 kg) BMI: 22.24 (normal) GI/ Skin Integrity GI: WNL, Soft, Flat, Non- tender BM: 7/8 x1 I/O: 620/Not Noted Skin: WNL, Intact Jono: 19 Diet Order: [facility] Estimated Energy Needs: ( Geriatric, CBW) 2135-6850 kcals (25-30 kcals/ kg) 65-80g Pro (1.0-1.2 g/kg) 8440-0900 ml (25-30 ml/kg) Current Diet [facility]/ [facility] Pertinent Medications MOM (PRN), Protonix, Synthroid Pertinent Labs 11/14: Hgb/Hct 13.4/41.0, HDL 36 , Glucose 123, BUN/Cr 36/1.06, Urine ketones 3+, Urine Protein 1+ Nutritional Hx/Data Height 1.7 m Height (Calculated Centimeters) 170.2 Current Weight (lbs) 64.41 kg Weight (Calculated Kilograms) 64.4 Weight (Calculated Grams) 47672.1 [place] Body Weight 148 LB (67.27 kg) % [place] Body Weight 96 Body Mass Index (BMI) 22.2 Weight Status Approriate GI Symptoms Last BM 11/15 x1 Skin Integrity/Comment: Skin: WNL, Intact Jono: 19 Current %PO Poor (25-49%) Estimated Nutritional Goals BEE in Kcals: Using Current wt Calories/Kcals/Kg 25-30 Kcals Calculated 8451-0353 Protein: Using Current wt Protein g/k.0-1.2 Protein Calculated 65-80 Fluid: ml 4012-2711 ml (25-30 ml/kg) Nutritional Problem 1. Problem Problem Altered nutrition related labs Etiology r/t pathophysiological causes Signs/Symptoms: aeb labs (11/14) Glucose 123, BUN/Cr 36/1.06, Urine ketones 3+, Urine Protein 1+. Malnutrition Related to Morbid Obesity Malnutrition related to morbid obesity No Intervention/Recommendation Comments 1.Continue [facility] diet as tolerated. 2.Add Glucerna Hunger Smart TID (completed). Expected Outcomes/Goals Expected Outcomes/Goals 1.PO intake to meet 75% of estimated nutritional needs. 2.Monitor PO intake, wt, nutrition related labs, and skin integrity. 3.F/U as moderate risk in 3-5 days, 11/19-11/21.
[2019-11-26] MEDS: Pantoprazole 40 mg EC Tab PO SCH (06:59)
[2019-11-26] MEDS: Levothyroxine 0.025 Mg Tab PO SCH (06:59)
--- NOTE | 2019-11-26 08:23 | Progress Notes ---
DATE: 11/26/2019 SUBJECTIVE: A 59-year-old male in the hospital, still noted to be unruly, can be aggressive, agitated still, shadowboxing at times, seems to be generally calmer. Time spent with the patient, trying to speak with him, but he is pretty confused. Time spent with chart reviewed, discussed with staff. They note he has been calm overnight, slept about 7 hours, still confused, preoccupied with thoughts, less aggressive. Preoccupied with his thoughts, sometimes mumbling to self, responding to internal stimuli. ASSESSMENT: A 59-year-old male, still sometimes masturbating, ongoing behavioral disturbances, impulsive, unpredictable. PLAN: Continue dosing of medications. He is on Paxil, Haldol, Haldol Decanoate. JOB# [id number]
[2019-11-26] MEDS: Multivitamin w/ Minerals Tab PO SCH (08:32)
[2019-11-27] MEDS: Levothyroxine 0.025 Mg Tab PO SCH (06:58)
[2019-11-27] MEDS: Pantoprazole 40 mg EC Tab PO SCH (06:58)
--- NOTE | 2019-11-27 07:34 | Progress Notes ---
DATE: 11/27/2019 SUBJECTIVE: This is a 59-year-old male, currently in the hospital, still noted to be sometimes unruly, agitated, but seems to be calming down at times, still mumbling to self, not really able to converse much, selectively mute, isolative and withdrawn. I go in to talk to him. I do not get anywhere. I am not really giving much information. He knows his name, but otherwise he is not talking much. Staff noting isolative, withdrawn, preoccupied, ongoing concerns about hypersexual behaviors. No episodes of masturbation over the past 24 hours, still very confused and impulsive, highly unpredictable. Medications reviewed. Labs reviewed. Vitals were reviewed. ASSESSMENT: A 59-year-old male, currently in the hospital, noted to be with ongoing symptoms, concerns for safety, especially of those around him. PLAN: We will continue inpatient monitoring. The patient as of yet not stable. JOB# [id number]
[2019-11-27] MEDS: Multivitamin w/ Minerals Tab PO SCH (08:20)
[2019-11-28] MEDS: Levothyroxine 0.025 Mg Tab PO SCH (06:44)
[2019-11-28] MEDS: Pantoprazole 40 mg EC Tab PO SCH (06:44)
[2019-11-28] MEDS: Multivitamin w/ Minerals Tab PO SCH (09:02)
--- NOTE | 2019-11-28 17:21 | Internal Medicine Prog Note ---
Internal Medicine Subjective - Subjective Service Date: 11/28/19 Patient seen and examined:: without staff Patient is:: awake, non-verbal Per staff patient has:: no adverse event, no episodes of fall Internal Medicine Objective - Results Result Diagrams: 11/21/19 12:10 11/21/19 12:10 Recent Labs: Laboratory Last Values WBC 7.7 K/uL (4.8-10.8) 11/21/19 12:10 RBC 4.17 MIL/uL (4.2-6.2) L 11/21/19 12:10 Hgb 13.3 g/dL (14.0-18.0) L 11/21/19 12:10 Hct 40.3 % (36-54) 11/21/19 12:10 MCV 97 fL (79.0-98.0) 11/21/19 12:10 MCH 32 pg (27-31) H 11/21/19 12:10 MCHC 33 % (32-36) 11/21/19 12:10 RDW 13.1 % (9.0-15.0) 11/21/19 12:10 Plt Count 207 K/uL (130-430) 11/21/19 12:10 MPV 8.9 fl (7.4-10.4) 11/21/19 12:10 Neut % (Auto) 65.9 % (40-70) 11/21/19 12:10 Lymph % (Auto) 26.5 % (20.5-51.5) 11/21/19 12:10 [place] % (Auto) 6.9 % (1.7-9.3) 11/21/19 12:10 Eos % (Auto) 0.5 % (0-4) 11/21/19 12:10 Baso % (Auto) 0.2 % (0.0-2.0) 11/21/19 12:10 Neut # (Auto) 5.1 K/uL (1.8-7.7) 11/21/19 12:10 Lymph # (Auto) 2.0 K/uL (1.0-5.5) 11/21/19 12:10 [place] # (Auto) 0.5 K/uL (0.0-1.0) 11/21/19 12:10 Eos # (Auto) 0.0 K/uL (0.0-0.4) 11/21/19 12:10 Baso # (Auto) 0.0 K/uL (0.0-0.2) 11/21/19 12:10 Sodium 136 mmol/L (136-145) 11/21/19 12:10 Potassium 4.0 mmol/L (3.5-5.1) 11/21/19 12:10 Chloride 103 mmol/L (98-107) 11/21/19 12:10 Carbon Dioxide 22 mmol/L (23-29) L 11/21/19 12:10 Anion Gap 15 (5-15) 11/21/19 12:10 BUN 26 mg/dL (8-21) H 11/21/19 12:10 Creatinine 0.77 mg/dL (0.70-1.30) 11/21/19 12:10 Glucose 89 mg/dL (70-99) 11/21/19 12:10 POC Glucose 135 MG/DL (70 - 105) H 11/22/19 10:52 Calcium 8.9 mg/dL (8.4-10.2) 11/21/19 12:10 Total Bilirubin 0.5 mg/dL (0.0-1.0) 11/21/19 12:10 AST 44 U/L (10-37) H 11/21/19 12:10 ALT 39 U/L (12-78) 11/21/19 12:10 Alkaline Phosphatase 75 U/L (46-116) 11/21/19 12:10 Total Protein 7.6 g/dL (6.4-8.3) 11/21/19 12:10 Albumin 3.9 g/dL (3.4-5.0) 11/21/19 12:10 Triglycerides 60 mg/dL (30-150) 11/15/19 15:05 Cholesterol 160 mg/dL (<200) 11/15/19 15:05 LDL Cholesterol 106 mg/dL (0-129) 11/15/19 15:05 HDL Cholesterol 36 mg/dL (>45) L 11/15/19 15:05 TSH 1.37 uIU/ml (0.34-5.60) 11/21/19 12:10 Coronavirus (PCR) Negative (Negative) 11/21/19 12:05 - Physical Exam Vitals and I&O: Vital Signs Temp 98.6 F 11/28/19 15:35 Pulse 49 11/28/19 15:35 Resp 20 11/28/19 15:35 BP 135/71 11/28/19 15:35 Pulse Ox 97 11/28/19 15:35 Intake & Output 11/27/19 11/28/19 11/28/19 18:59 06:59 18:59 Intake Total 950 360 Balance 950 360 Intake: Oral 950 360 Other: # Voids 4 1 # Bowel Movements 1 0 Stool Characteristics Formed [place] Active Medications: Current Medications Diphenhydramine HCl (Benadryl 50 Mg/Ml) 50 mg IM BID PRN PRN Reason: Agitation Stop: 01/17/20 15:56 Last Admin: 11/21/19 16:36 Dose: 50 mg Divalproex Sodium (Depakote Dr) 250 mg PO BID [facility]; Protocol Stop: 01/14/20 16:59 Last Admin: 11/28/19 09:02 Dose: 250 mg Haloperidol (Haldol) 5 mg PO BID [facility]; Protocol Stop: 01/17/20 16:59 Last Admin: 11/28/19 09:02 Dose: 5 mg Haloperidol Decanoate (Haldol Dec) 100 mg IM QMONTH [facility]; Protocol Stop: 01/20/20 12:59 Last Admin: 11/21/19 13:14 Dose: 100 mg Haloperidol Lactate (Haldol) 5 mg IM BID PRN PRN Reason: Agitation Stop: 01/17/20 15:53 Last Admin: 11/21/19 16:36 Dose: 5 mg Levothyroxine Sodium (Synthroid) 0.025 mg PO QDAC ANDI Stop: 01/15/20 07:29 Last Admin: 11/28/19 06:44 Dose: 0.025 mg Lorazepam (Ativan) 0.5 mg PO Q4HR PRN; Protocol PRN Reason: Anxiety Stop: 01/15/20 20:53 Last Admin: 11/25/19 08:21 Dose: 0.5 mg Magnesium Hydroxide (Milk Of Magnesia) 30 ml PO HS PRN PRN Reason: Constipation Pantoprazole Sodium (Protonix) 40 mg PO QDAC ANDI Stop: 01/15/20 07:29 Last Admin: 11/28/19 06:44 Dose: 40 mg Paroxetine HCl (Paxil) 10 mg PO BID [facility]; Protocol Stop: 01/24/20 16:59 Last Admin: 11/28/19 09:02 Dose: 10 mg Zolpidem Tartrate (Ambien) 5 mg PO HS PRN PRN Reason: Insomnia Stop: 01/15/20 20:52 Last Admin: 11/26/19 21:32 Dose: 5 mg General: weak HEENT: NC/AT, PERRLA, EOMI Neck: Supple Lungs: CTAB Cardiovascular: RRR, Normal S1, Normal S2 Abdomen: soft, non-tender Extremities: clear Neurological: no change Internal Medicine Assmt/Plan - Assessment Assessment: 1. Hypothyroidism 2. Hx of CVA - Plan Plan: check covid-19 PCR continue synthroid continue supportive care d/w r.n. reviewed medical records. Nutritional Asmnt/Malnutr-PDOC - Dietary Evaluation Malnutrition Findings (Please click <Entered> for more info): Nutritional Asmnt/Malnutrition Start: 11/17/19 12: 52 Text: Status: Complete Freq: Protocol: Document 11/17/19 12:52 CHANDRA (Rec: 11/17/19 12:55 CHANDRA [id number]) Nutritional Asmnt/Malnutrition Patient General Information Nutritional Screening Moderate Risk Diagnosis Acute Agitation and Psychosis Pertinent Medical Hx/Surgical Hx Advanced Dementia, Hypothyroidism, Osteoarthritis , Chronic Pain, HTN, Schizophrenia Subjective Information Pt is a 59-year-old male admitted on 11/14 d/t Acute Agitation and Psychosis. Pt ate an estimated 60% of meals on first day here and refused lunch and dinner yesterday, eating only 25% breakfast Per Meal/Nutrition Activity Record . Dietary is currently providing an estimated 1800 kcals and 110 gm Pro. Pt came from SNF with reported poor appetite, will continue to monitor. Will provide Glucerna Hunger Smart TID until PO intake can meet estimated nutritional needs. Pt has no noted Hx DM, glucose 123 on admission with [facility] diet Rx. A1C pending. Anthropometrics HT: 57 WT: 142 LB (64.55 kg) BMI: 22.24 (normal) GI/ Skin Integrity GI: WNL, Soft, Flat, Non- tender BM: 7/8 x1 I/O: 620/Not Noted Skin: WNL, Intact Jono: 19 Diet Order: [facility] Estimated Energy Needs: ( Geriatric, CBW) 9423-7937 kcals (25-30 kcals/ kg) 65-80g Pro (1.0-1.2 g/kg) 0156-2692 ml (25-30 ml/kg) Current Diet Order/ Nutrition Support [facility] Pertinent Medications MOM (PRN), Protonix, Synthroid Pertinent Labs 11/14: Hgb/Hct 13.4/41.0, HDL 36 , Glucose 123, BUN/Cr 36/1.06, Urine ketones 3+, Urine Protein 1+ Nutritional Hx/Data Height 1.7 m Height (Calculated Centimeters) 170.2 Current Weight (lbs) 64.41 kg Weight (Calculated Kilograms) 64.4 Weight (Calculated Grams) 95198.1 [place] Body Weight 148 LB (67.27 kg) % [place] Body Weight 96 Body Mass Index (BMI) 22.2 Weight Status Approriate GI Symptoms Last BM 11/15 x1 Skin Integrity/Comment: Skin: WNL, Intact Jono: 19 Current %PO Poor (25-49%) Estimated Nutritional Goals BEE in Kcals: Using Current wt Calories/Kcals/Kg 25-30 Kcals Calculated 9635-3174 Protein: Using Current wt Protein g/k.0-1.2 Protein Calculated 65-80 Fluid: ml 9541-0756 ml (25-30 ml/kg) Nutritional Problem 1. Problem Problem Altered nutrition related labs Etiology r/t pathophysiological causes Signs/Symptoms: aeb labs (11/14) Glucose 123, BUN/Cr 36/1.06, Urine ketones 3+, Urine Protein 1+. Malnutrition Related to Morbid Obesity Malnutrition related to morbid obesity No Intervention/Recommendation Comments 1.Continue [facility] diet as tolerated. 2.Add Glucerna Hunger Smart TID (completed). Expected Outcomes/Goals Expected Outcomes/Goals 1.PO intake to meet 75% of estimated nutritional needs. 2.Monitor PO intake, wt, nutrition related labs, and skin integrity. 3.F/U as moderate risk in 3-5 days, 11/19-11/21.
--- NOTE | 2019-11-28 18:17 | Progress Notes ---
DATE: 11/28/2019 SUBJECTIVE: A 59-year-old male, currently in the hospital, slept about 4-5 hours, no outburst, has been generally calm, somewhat impulsive, and still unpredictable. Time was spent with the patient, somewhat complex case given difficult to control symptoms, hard to really get any information of the patient because he is pretty disoriented, confused, withdrawn, preoccupied. Extensive time spent with the patient trying to get information from him. Discussed with staff, chart was reviewed. Labs reviewed. Medications were reviewed. No overt side effects. He is also on a long-acting injectable. ASSESSMENT: A 59-year-old male, hard to control symptoms. Still impulsive, sometimes short of __, concerns for hypersexual behaviors and masturbation. These behaviors have been lessening to some extent, still isolative, withdrawn, and selectively mute. PLAN: We will continue to monitor. JOB# [id number]
[2019-11-29] MEDS: Levothyroxine 0.025 Mg Tab PO SCH (06:45)
[2019-11-29] MEDS: Pantoprazole 40 mg EC Tab PO SCH (06:46)
[2019-11-29] MEDS: Multivitamin w/ Minerals Tab PO SCH (08:22)
--- NOTE | 2019-11-29 14:37 | Internal Medicine Prog Note ---
Internal Medicine Subjective - Subjective Service Date: 11/29/19 (no fevers, no cough, no chest pain, no sob) Patient seen and examined:: without staff Patient is:: awake, non-verbal Per staff patient has:: no adverse event, no episodes of fall Internal Medicine Objective - Results Result Diagrams: 11/21/19 12:10 11/21/19 12:10 Recent Labs: Laboratory Last Values WBC 7.7 K/uL (4.8-10.8) 11/21/19 12:10 RBC 4.17 MIL/uL (4.2-6.2) L 11/21/19 12:10 Hgb 13.3 g/dL (14.0-18.0) L 11/21/19 12:10 Hct 40.3 % (36-54) 11/21/19 12:10 MCV 97 fL (79.0-98.0) 11/21/19 12:10 MCH 32 pg (27-31) H 11/21/19 12:10 MCHC 33 % (32-36) 11/21/19 12:10 RDW 13.1 % (9.0-15.0) 11/21/19 12:10 Plt Count 207 K/uL (130-430) 11/21/19 12:10 MPV 8.9 fl (7.4-10.4) 11/21/19 12:10 Neut % (Auto) 65.9 % (40-70) 11/21/19 12:10 Lymph % (Auto) 26.5 % (20.5-51.5) 11/21/19 12:10 [place] % (Auto) 6.9 % (1.7-9.3) 11/21/19 12:10 Eos % (Auto) 0.5 % (0-4) 11/21/19 12:10 Baso % (Auto) 0.2 % (0.0-2.0) 11/21/19 12:10 Neut # (Auto) 5.1 K/uL (1.8-7.7) 11/21/19 12:10 Lymph # (Auto) 2.0 K/uL (1.0-5.5) 11/21/19 12:10 [place] # (Auto) 0.5 K/uL (0.0-1.0) 11/21/19 12:10 Eos # (Auto) 0.0 K/uL (0.0-0.4) 11/21/19 12:10 Baso # (Auto) 0.0 K/uL (0.0-0.2) 11/21/19 12:10 Sodium 136 mmol/L (136-145) 11/21/19 12:10 Potassium 4.0 mmol/L (3.5-5.1) 11/21/19 12:10 Chloride 103 mmol/L (98-107) 11/21/19 12:10 Carbon Dioxide 22 mmol/L (23-29) L 11/21/19 12:10 Anion Gap 15 (5-15) 11/21/19 12:10 BUN 26 mg/dL (8-21) H 11/21/19 12:10 Creatinine 0.77 mg/dL (0.70-1.30) 11/21/19 12:10 Glucose 89 mg/dL (70-99) 11/21/19 12:10 POC Glucose 135 MG/DL (70 - 105) H 11/22/19 10:52 Calcium 8.9 mg/dL (8.4-10.2) 11/21/19 12:10 Total Bilirubin 0.5 mg/dL (0.0-1.0) 11/21/19 12:10 AST 44 U/L (10-37) H 11/21/19 12:10 ALT 39 U/L (12-78) 11/21/19 12:10 Alkaline Phosphatase 75 U/L (46-116) 11/21/19 12:10 Total Protein 7.6 g/dL (6.4-8.3) 11/21/19 12:10 Albumin 3.9 g/dL (3.4-5.0) 11/21/19 12:10 Triglycerides 60 mg/dL (30-150) 11/15/19 15:05 Cholesterol 160 mg/dL (<200) 11/15/19 15:05 LDL Cholesterol 106 mg/dL (0-129) 11/15/19 15:05 HDL Cholesterol 36 mg/dL (>45) L 11/15/19 15:05 TSH 1.37 uIU/ml (0.34-5.60) 11/21/19 12:10 Coronavirus (PCR) Negative (Negative) 11/21/19 12:05 - Physical Exam Vitals and I&O: Vital Signs Temp 97.3 F 11/29/19 06:19 Pulse 59 11/29/19 06:19 Resp 19 11/29/19 07:34 BP 115/58 11/29/19 06:19 Pulse Ox 98 11/29/19 06:19 Intake & Output 11/28/19 11/29/19 11/29/19 18:59 06:59 18:59 Intake Total 240 Balance 240 Intake: Oral 240 Other: # Voids 3 # Bowel Movements 0 Active Medications: Current Medications Diphenhydramine HCl (Benadryl 50 Mg/Ml) 50 mg IM BID PRN PRN Reason: Agitation Stop: 01/17/20 15:56 Last Admin: 11/21/19 16:36 Dose: 50 mg Divalproex Sodium (Depakote Dr) 250 mg PO BID [facility]; Protocol Stop: 01/14/20 16:59 Last Admin: 11/29/19 08:22 Dose: 250 mg Haloperidol (Haldol) 5 mg PO BID [facility]; Protocol Stop: 01/17/20 16:59 Last Admin: 11/29/19 08:22 Dose: 5 mg Haloperidol Decanoate (Haldol Dec) 100 mg IM QMONTH [facility]; Protocol Stop: 01/20/20 12:59 Last Admin: 11/21/19 13:14 Dose: 100 mg Haloperidol Lactate (Haldol) 5 mg IM BID PRN PRN Reason: Agitation Stop: 01/17/20 15:53 Last Admin: 11/21/19 16:36 Dose: 5 mg Levothyroxine Sodium (Synthroid) 0.025 mg PO QDAC [facility] Stop: 01/15/20 07:29 Last Admin: 11/29/19 06:45 Dose: 0.025 mg Lorazepam (Ativan) 0.5 mg PO Q4HR PRN; Protocol PRN Reason: Anxiety Stop: 01/15/20 20:53 Last Admin: 11/29/19 08:22 Dose: 0.5 mg Magnesium Hydroxide (Milk Of Magnesia) 30 ml PO HS PRN PRN Reason: Constipation Pantoprazole Sodium (Protonix) 40 mg PO QDAC [facility] Stop: 01/15/20 07:29 Last Admin: 11/29/19 06:46 Dose: 40 mg Paroxetine HCl (Paxil) 10 mg PO BID [facility]; Protocol Stop: 01/24/20 16:59 Last Admin: 11/29/19 08:22 Dose: 10 mg Zolpidem Tartrate (Ambien) 5 mg PO HS PRN PRN Reason: Insomnia Stop: 01/15/20 20:52 Last Admin: 11/28/19 21:03 Dose: 5 mg General: weak HEENT: NC/AT, PERRLA, EOMI Neck: Supple Lungs: CTAB Cardiovascular: RRR, Normal S1, Normal S2 Abdomen: soft, non-tender Extremities: clear Neurological: no change Internal Medicine Assmt/Plan - Assessment Assessment: 1. Hypothyroidism 2. Hx of CVA - Plan Plan: await covid result no overt symptoms of covid continue synthroid continue supportive care d/w r.n. reviewed medical records. Nutritional Asmnt/Malnutr-PDOC - Dietary Evaluation Malnutrition Findings (Please click <Entered> for more info): Nutritional Asmnt/Malnutrition Start: 11/17/19 12: 52 Text: Status: Complete Freq: Protocol: Document 11/17/19 12:52 CHANDRA (Rec: 11/17/19 12:55 CHANDRA [id number]) Nutritional Asmnt/Malnutrition Patient General Information Nutritional Screening Moderate Risk Diagnosis Acute Agitation and Psychosis Pertinent Medical Hx/Surgical Hx Advanced Dementia, Hypothyroidism, Osteoarthritis , Chronic Pain, HTN, Schizophrenia Subjective Information Pt is a 59-year-old male admitted on 11/14 d/t Acute Agitation and Psychosis. Pt ate an estimated 60% of meals on first day here and refused lunch and dinner yesterday, eating only 25% breakfast Per Meal/Nutrition Activity Record . Dietary is currently providing an estimated 1800 kcals and 110 gm Pro. Pt came from SNF with reported poor appetite, will continue to monitor. Will provide Glucerna Hunger Smart TID until PO intake can meet estimated nutritional needs. Pt has no noted Hx DM, glucose 123 on admission with [facility] diet Rx. A1C pending. Anthropometrics HT: 57 WT: 142 LB (64.55 kg) BMI: 22.24 (normal) GI/ Skin Integrity GI: WNL, Soft, Flat, Non- tender BM: 7/8 x1 I/O: 620/Not Noted Skin: WNL, Intact Jono: 19 Diet Order: [facility] Estimated Energy Needs: ( Geriatric, CBW) 7149-9716 kcals (25-30 kcals/ kg) 65-80g Pro (1.0-1.2 g/kg) 9907-1539 ml (25-30 ml/kg) Current Diet Order/ Nutrition Support [facility] Pertinent Medications MOM (PRN), Protonix, Synthroid Pertinent Labs 11/14: Hgb/Hct 13.4/41.0, HDL 36 , Glucose 123, BUN/Cr 36/1.06, Urine ketones 3+, Urine Protein 1+ Nutritional Hx/Data Height 1.7 m Height (Calculated Centimeters) 170.2 Current Weight (lbs) 64.41 kg Weight (Calculated Kilograms) 64.4 Weight (Calculated Grams) 90496.1 [place] Body Weight 148 LB (67.27 kg) % [place] Body Weight 96 Body Mass Index (BMI) 22.2 Weight Status Approriate GI Symptoms Last BM 11/15 x1 Skin Integrity/Comment: Skin: WNL, Intact Jono: 19 Current %PO Poor (25-49%) Estimated Nutritional Goals BEE in Kcals: Using Current wt Calories/Kcals/Kg 25-30 Kcals Calculated 8090-3245 Protein: Using Current wt Protein g/k.0-1.2 Protein Calculated 65-80 Fluid: ml 3402-2648 ml (25-30 ml/kg) Nutritional Problem 1. Problem Problem Altered nutrition related labs Etiology r/t pathophysiological causes Signs/Symptoms: aeb labs (11/14) Glucose 123, BUN/Cr 36/1.06, Urine ketones 3+, Urine Protein 1+. Malnutrition Related to Morbid Obesity Malnutrition related to morbid obesity No Intervention/Recommendation Comments 1.Continue [facility] diet as tolerated. 2.Add Glucerna Hunger Smart TID (completed). Expected Outcomes/Goals Expected Outcomes/Goals 1.PO intake to meet 75% of estimated nutritional needs. 2.Monitor PO intake, wt, nutrition related labs, and skin integrity. 3.F/U as moderate risk in 3-5 days, 11/19-11/21.
--- NOTE | 2019-11-30 05:18 | Progress Notes ---
DATE: 11/29/2019 SUBJECTIVE: A 59-year-old male, currently in the hospital, seems generally calmer, still confused, disoriented, really hard to understand what he is saying. AO to essentially name only. Isolative, withdrawn, currently [place]e ____ being given medications, Haldol, Haldol Decanoate, withdrawn, preoccupied, isolative, ongoing concerns about his ability to tend to his basic needs. His hold is up tomorrow, hard to understand what he is saying, withdrawn, keeps to self. ASSESSMENT: The patient remains symptomatic, still impulsive, unpredictable, but generally calmer. The patient coming from [facility], ongoing concerns about hypersexuality. Concerns about really his ability to be cared for at that level of care given ongoing concerns, hypersexual behaviors, aggression. JOB# [id number]
[2019-11-30] MEDS: Pantoprazole 40 mg EC Tab PO SCH (06:35)
[2019-11-30] MEDS: Levothyroxine 0.025 Mg Tab PO SCH (06:35)
[2019-11-30] MEDS: Multivitamin w/ Minerals Tab PO SCH (08:27)
--- NOTE | 2019-11-30 14:10 | Internal Medicine Prog Note ---
Internal Medicine Subjective - Subjective Service Date: 11/30/19 Patient seen and examined:: without staff Patient is:: awake, non-verbal Per staff patient has:: no adverse event, no episodes of fall Internal Medicine Objective - Results Result Diagrams: 11/21/19 12:10 11/21/19 12:10 Recent Labs: Laboratory Last Values WBC 7.7 K/uL (4.8-10.8) 11/21/19 12:10 RBC 4.17 MIL/uL (4.2-6.2) L 11/21/19 12:10 Hgb 13.3 g/dL (14.0-18.0) L 11/21/19 12:10 Hct 40.3 % (36-54) 11/21/19 12:10 MCV 97 fL (79.0-98.0) 11/21/19 12:10 MCH 32 pg (27-31) H 11/21/19 12:10 MCHC 33 % (32-36) 11/21/19 12:10 RDW 13.1 % (9.0-15.0) 11/21/19 12:10 Plt Count 207 K/uL (130-430) 11/21/19 12:10 MPV 8.9 fl (7.4-10.4) 11/21/19 12:10 Neut % (Auto) 65.9 % (40-70) 11/21/19 12:10 Lymph % (Auto) 26.5 % (20.5-51.5) 11/21/19 12:10 [place] % (Auto) 6.9 % (1.7-9.3) 11/21/19 12:10 Eos % (Auto) 0.5 % (0-4) 11/21/19 12:10 Baso % (Auto) 0.2 % (0.0-2.0) 11/21/19 12:10 Neut # (Auto) 5.1 K/uL (1.8-7.7) 11/21/19 12:10 Lymph # (Auto) 2.0 K/uL (1.0-5.5) 11/21/19 12:10 [place] # (Auto) 0.5 K/uL (0.0-1.0) 11/21/19 12:10 Eos # (Auto) 0.0 K/uL (0.0-0.4) 11/21/19 12:10 Baso # (Auto) 0.0 K/uL (0.0-0.2) 11/21/19 12:10 Sodium 136 mmol/L (136-145) 11/21/19 12:10 Potassium 4.0 mmol/L (3.5-5.1) 11/21/19 12:10 Chloride 103 mmol/L (98-107) 11/21/19 12:10 Carbon Dioxide 22 mmol/L (23-29) L 11/21/19 12:10 Anion Gap 15 (5-15) 11/21/19 12:10 BUN 26 mg/dL (8-21) H 11/21/19 12:10 Creatinine 0.77 mg/dL (0.70-1.30) 11/21/19 12:10 Glucose 89 mg/dL (70-99) 11/21/19 12:10 POC Glucose 135 MG/DL (70 - 105) H 11/22/19 10:52 Calcium 8.9 mg/dL (8.4-10.2) 11/21/19 12:10 Total Bilirubin 0.5 mg/dL (0.0-1.0) 11/21/19 12:10 AST 44 U/L (10-37) H 11/21/19 12:10 ALT 39 U/L (12-78) 11/21/19 12:10 Alkaline Phosphatase 75 U/L (46-116) 11/21/19 12:10 Total Protein 7.6 g/dL (6.4-8.3) 11/21/19 12:10 Albumin 3.9 g/dL (3.4-5.0) 11/21/19 12:10 Triglycerides 60 mg/dL (30-150) 11/15/19 15:05 Cholesterol 160 mg/dL (<200) 11/15/19 15:05 LDL Cholesterol 106 mg/dL (0-129) 11/15/19 15:05 HDL Cholesterol 36 mg/dL (>45) L 11/15/19 15:05 TSH 1.37 uIU/ml (0.34-5.60) 11/21/19 12:10 Coronavirus (PCR) Negative (Negative) 11/21/19 12:05 - Physical Exam Vitals and I&O: Vital Signs Temp 98.5 F 11/30/19 14:00 Pulse 63 11/30/19 14:00 Resp 20 11/30/19 14:00 BP 147/62 11/30/19 14:00 Pulse Ox 97 11/30/19 14:00 Intake & Output 11/29/19 11/30/19 11/30/19 18:59 06:59 18:59 Intake Total 950 120 300 Balance 950 120 300 Intake: Oral 950 120 300 Other: # Voids 3 # Bowel Movements 0 Active Medications: Current Medications Diphenhydramine HCl (Benadryl 50 Mg/Ml) 50 mg IM BID PRN PRN Reason: Agitation Stop: 01/17/20 15:56 Last Admin: 11/21/19 16:36 Dose: 50 mg Divalproex Sodium (Depakote Dr) 250 mg PO BID [facility]; Protocol Stop: 01/14/20 16:59 Last Admin: 11/30/19 08:27 Dose: 250 mg Haloperidol (Haldol) 5 mg PO BID ANDI; Protocol Stop: 01/17/20 16:59 Last Admin: 11/30/19 08:27 Dose: 5 mg Haloperidol Decanoate (Haldol Dec) 100 mg IM QMONTH [facility]; Protocol Stop: 01/20/20 12:59 Last Admin: 11/21/19 13:14 Dose: 100 mg Haloperidol Lactate (Haldol) 5 mg IM BID PRN PRN Reason: Agitation Stop: 01/17/20 15:53 Last Admin: 11/21/19 16:36 Dose: 5 mg Levothyroxine Sodium (Synthroid) 0.025 mg PO QDAC ANDI Stop: 01/15/20 07:29 Last Admin: 11/30/19 06:35 Dose: 0.025 mg Lorazepam (Ativan) 0.5 mg PO Q4HR PRN; Protocol PRN Reason: Anxiety Stop: 01/15/20 20:53 Last Admin: 11/29/19 08:22 Dose: 0.5 mg Magnesium Hydroxide (Milk Of Magnesia) 30 ml PO HS PRN PRN Reason: Constipation Pantoprazole Sodium (Protonix) 40 mg PO QDAC ANDI Stop: 01/15/20 07:29 Last Admin: 11/30/19 06:35 Dose: 40 mg Paroxetine HCl (Paxil) 10 mg PO BID ANDI; Protocol Stop: 01/24/20 16:59 Last Admin: 11/30/19 08:27 Dose: 10 mg Zolpidem Tartrate (Ambien) 5 mg PO HS PRN PRN Reason: Insomnia Stop: 01/15/20 20:52 Last Admin: 11/28/19 21:03 Dose: 5 mg General: weak HEENT: NC/AT, PERRLA, EOMI Neck: Supple Lungs: CTAB Cardiovascular: RRR, Normal S1, Normal S2 Abdomen: soft, non-tender Extremities: clear Neurological: no change Internal Medicine Assmt/Plan - Assessment Assessment: 1. Hypothyroidism 2. Hx of CVA - Plan Plan: continue synthroid continue supportive care d/w r.n. reviewed medical records. Nutritional Asmnt/Malnutr-PDOC - Dietary Evaluation Malnutrition Findings (Please click <Entered> for more info): Nutritional Asmnt/Malnutrition Start: 11/17/19 12: 52 Text: Status: Complete Freq: Protocol: Document 11/17/19 12:52 CHANDRA (Rec: 11/17/19 12:55 CHANDRA [id number]) Nutritional Asmnt/Malnutrition Patient General Information Nutritional Screening Moderate Risk Diagnosis Acute Agitation and Psychosis Pertinent Medical Hx/Surgical Hx Advanced Dementia, Hypothyroidism, Osteoarthritis , Chronic Pain, HTN, Schizophrenia Subjective Information Pt is a 59-year-old male admitted on 11/14 d/t Acute Agitation and Psychosis. Pt ate an estimated 60% of meals on first day here and refused lunch and dinner yesterday, eating only 25% breakfast Per Meal/Nutrition Activity Record . Dietary is currently providing an estimated 1800 kcals and 110 gm Pro. Pt came from SNF with reported poor appetite, will continue to monitor. Will provide Glucerna Hunger Smart TID until PO intake can meet estimated nutritional needs. Pt has no noted Hx DM, glucose 123 on admission with [facility] diet Rx. A1C pending. Anthropometrics HT: 57 WT: 142 LB (64.55 kg) BMI: 22.24 (normal) GI/ Skin Integrity GI: WNL, Soft, Flat, Non- tender BM: 7/8 x1 I/O: 620/Not Noted Skin: WNL, Intact Jono: 19 Diet Order: [facility] Estimated Energy Needs: ( Geriatric, CBW) 0091-7556 kcals (25-30 kcals/ kg) 65-80g Pro (1.0-1.2 g/kg) 0396-4539 ml (25-30 ml/kg) Current Diet Order/ Nutrition Support [facility] Pertinent Medications MOM (PRN), Protonix, Synthroid Pertinent Labs 11/14: Hgb/Hct 13.4/41.0, HDL 36 , Glucose 123, BUN/Cr 36/1.06, Urine ketones 3+, Urine Protein 1+ Nutritional Hx/Data Height 1.7 m Height (Calculated Centimeters) 170.2 Current Weight (lbs) 64.41 kg Weight (Calculated Kilograms) 64.4 Weight (Calculated Grams) 84437.1 [place] Body Weight 148 LB (67.27 kg) % [place] Body Weight 96 Body Mass Index (BMI) 22.2 Weight Status Approriate GI Symptoms Last BM 11/15 x1 Skin Integrity/Comment: Skin: WNL, Intact Jono: 19 Current %PO Poor (25-49%) Estimated Nutritional Goals BEE in Kcals: Using Current wt Calories/Kcals/Kg 25-30 Kcals Calculated 3819-9605 Protein: Using Current wt Protein g/k.0-1.2 Protein Calculated 65-80 Fluid: ml 3288-7785 ml (25-30 ml/kg) Nutritional Problem 1. Problem Problem Altered nutrition related labs Etiology r/t pathophysiological causes Signs/Symptoms: aeb labs (11/14) Glucose 123, BUN/Cr 36/1.06, Urine ketones 3+, Urine Protein 1+. Malnutrition Related to Morbid Obesity Malnutrition related to morbid obesity No Intervention/Recommendation Comments 1.Continue [facility] diet as tolerated. 2.Add Glucerna Hunger Smart TID (completed). Expected Outcomes/Goals Expected Outcomes/Goals 1.PO intake to meet 75% of estimated nutritional needs. 2.Monitor PO intake, wt, nutrition related labs, and skin integrity. 3.F/U as moderate risk in 3-5 days, 11/19-11/21.
--- NOTE | 2019-11-30 17:02 | Progress Notes ---
DATE: 11/30/2019 SUBJECTIVE: This is a 59-year-old male who remains restless, pacing the unit, not as agitated or combative, still very confused, disoriented, mostly keeps to self, hard time controlling his behaviors. He has been here since 11/15/2019. Remains unpredictable, labile, impulsive, talking to self, pacing back and forth, AO to name only, fair sleep and appetite, more redirectable. Medications were reviewed. Labs reviewed. Vitals were reviewed. ASSESSMENT: A 59-year-old male who remains impulsive, unpredictable, also hypersexual behaviors. Generally, improving. PLAN: We will continue to monitor. We will coordinate care with social science professor regarding a safe discharge plan and good psychiatric followup. It seems that the COVID-19 test is negative. JOB# [id number]
[2019-12-01] MEDS: Levothyroxine 0.025 Mg Tab PO SCH (06:33)
[2019-12-01] MEDS: Pantoprazole 40 mg EC Tab PO SCH (06:33)
[2019-12-01] MEDS: Multivitamin w/ Minerals Tab PO SCH (08:54)
--- NOTE | 2019-12-01 13:35 | Internal Medicine Prog Note ---
Internal Medicine Subjective - Subjective Service Date: 12/01/19 Patient seen and examined:: without staff Patient is:: awake, non-verbal Per staff patient has:: no adverse event, no episodes of fall Internal Medicine Objective - Results Result Diagrams: 11/21/19 12:10 11/21/19 12:10 Recent Labs: Laboratory Last Values WBC 7.7 K/uL (4.8-10.8) 11/21/19 12:10 RBC 4.17 MIL/uL (4.2-6.2) L 11/21/19 12:10 Hgb 13.3 g/dL (14.0-18.0) L 11/21/19 12:10 Hct 40.3 % (36-54) 11/21/19 12:10 MCV 97 fL (79.0-98.0) 11/21/19 12:10 MCH 32 pg (27-31) H 11/21/19 12:10 MCHC 33 % (32-36) 11/21/19 12:10 RDW 13.1 % (9.0-15.0) 11/21/19 12:10 Plt Count 207 K/uL (130-430) 11/21/19 12:10 MPV 8.9 fl (7.4-10.4) 11/21/19 12:10 Neut % (Auto) 65.9 % (40-70) 11/21/19 12:10 Lymph % (Auto) 26.5 % (20.5-51.5) 11/21/19 12:10 [place] % (Auto) 6.9 % (1.7-9.3) 11/21/19 12:10 Eos % (Auto) 0.5 % (0-4) 11/21/19 12:10 Baso % (Auto) 0.2 % (0.0-2.0) 11/21/19 12:10 Neut # (Auto) 5.1 K/uL (1.8-7.7) 11/21/19 12:10 Lymph # (Auto) 2.0 K/uL (1.0-5.5) 11/21/19 12:10 [place] # (Auto) 0.5 K/uL (0.0-1.0) 11/21/19 12:10 Eos # (Auto) 0.0 K/uL (0.0-0.4) 11/21/19 12:10 Baso # (Auto) 0.0 K/uL (0.0-0.2) 11/21/19 12:10 Sodium 136 mmol/L (136-145) 11/21/19 12:10 Potassium 4.0 mmol/L (3.5-5.1) 11/21/19 12:10 Chloride 103 mmol/L (98-107) 11/21/19 12:10 Carbon Dioxide 22 mmol/L (23-29) L 11/21/19 12:10 Anion Gap 15 (5-15) 11/21/19 12:10 BUN 26 mg/dL (8-21) H 11/21/19 12:10 Creatinine 0.77 mg/dL (0.70-1.30) 11/21/19 12:10 Glucose 89 mg/dL (70-99) 11/21/19 12:10 POC Glucose 135 MG/DL (70 - 105) H 11/22/19 10:52 Calcium 8.9 mg/dL (8.4-10.2) 11/21/19 12:10 Total Bilirubin 0.5 mg/dL (0.0-1.0) 11/21/19 12:10 AST 44 U/L (10-37) H 11/21/19 12:10 ALT 39 U/L (12-78) 11/21/19 12:10 Alkaline Phosphatase 75 U/L (46-116) 11/21/19 12:10 Total Protein 7.6 g/dL (6.4-8.3) 11/21/19 12:10 Albumin 3.9 g/dL (3.4-5.0) 11/21/19 12:10 Triglycerides 60 mg/dL (30-150) 11/15/19 15:05 Cholesterol 160 mg/dL (<200) 11/15/19 15:05 LDL Cholesterol 106 mg/dL (0-129) 11/15/19 15:05 HDL Cholesterol 36 mg/dL (>45) L 11/15/19 15:05 TSH 1.37 uIU/ml (0.34-5.60) 11/21/19 12:10 Coronavirus (PCR) Negative (Negative) 11/21/19 12:05 - Physical Exam Vitals and I&O: Vital Signs Temp 98.4 F 12/01/19 06:20 Pulse 54 12/01/19 06:20 Resp 18 12/01/19 08:00 BP 118/73 12/01/19 06:20 Pulse Ox 98 12/01/19 06:20 Intake & Output 11/30/19 12/01/19 12/01/19 18:59 06:59 18:59 Intake Total 700 120 Balance 700 120 Intake: Oral 700 120 Other: # Voids 4 3 Active Medications: Current Medications Diphenhydramine HCl (Benadryl 50 Mg/Ml) 50 mg IM BID PRN PRN Reason: Agitation Stop: 01/17/20 15:56 Last Admin: 11/21/19 16:36 Dose: 50 mg Divalproex Sodium (Depakote Dr) 250 mg PO BID [facility]; Protocol Stop: 01/14/20 16:59 Last Admin: 12/01/19 08:54 Dose: 250 mg Haloperidol (Haldol) 5 mg PO BID ANDI; Protocol Stop: 01/17/20 16:59 Last Admin: 12/01/19 08:54 Dose: 5 mg Haloperidol Decanoate (Haldol Dec) 100 mg IM QMONTH ANDI; Protocol Stop: 01/20/20 12:59 Last Admin: 11/21/19 13:14 Dose: 100 mg Haloperidol Lactate (Haldol) 5 mg IM BID PRN PRN Reason: Agitation Stop: 01/17/20 15:53 Last Admin: 11/21/19 16:36 Dose: 5 mg Levothyroxine Sodium (Synthroid) 0.025 mg PO QDAC ANDI Stop: 01/15/20 07:29 Last Admin: 12/01/19 06:33 Dose: 0.025 mg Lorazepam (Ativan) 0.5 mg PO Q4HR PRN; Protocol PRN Reason: Anxiety Stop: 01/15/20 20:53 Last Admin: 11/29/19 08:22 Dose: 0.5 mg Magnesium Hydroxide (Milk Of Magnesia) 30 ml PO HS PRN PRN Reason: Constipation Pantoprazole Sodium (Protonix) 40 mg PO QDAC ANDI Stop: 01/15/20 07:29 Last Admin: 12/01/19 06:33 Dose: 40 mg Paroxetine HCl (Paxil) 10 mg PO BID ANDI; Protocol Stop: 01/24/20 16:59 Last Admin: 12/01/19 08:54 Dose: 10 mg Zolpidem Tartrate (Ambien) 5 mg PO HS PRN PRN Reason: Insomnia Stop: 01/15/20 20:52 Last Admin: 11/28/19 21:03 Dose: 5 mg General: weak HEENT: NC/AT, PERRLA, EOMI Neck: Supple Lungs: CTAB Cardiovascular: RRR, Normal S1, Normal S2 Abdomen: soft, non-tender Extremities: clear Neurological: no change Internal Medicine Assmt/Plan - Assessment Assessment: 1. Hypothyroidism 2. Hx of CVA - Plan Plan: continue synthroid continue supportive care d/w r.n. reviewed medical records. Nutritional Asmnt/Malnutr-PDOC - Dietary Evaluation Malnutrition Findings (Please click <Entered> for more info): Nutritional Asmnt/Malnutrition Start: 11/17/19 12: 52 Text: Status: Complete Freq: Protocol: Document 11/17/19 12:52 CHANDRA (Rec: 11/17/19 12:55 CHANDRA [email or web address] [id number]) Nutritional Asmnt/Malnutrition Patient General Information Nutritional Screening Moderate Risk Diagnosis Acute Agitation and Psychosis Pertinent Medical Hx/Surgical Hx Advanced Dementia, Hypothyroidism, Osteoarthritis , Chronic Pain, HTN, Schizophrenia Subjective Information Pt is a 59-year-old male admitted on 11/14 d/t Acute Agitation and Psychosis. Pt ate an estimated 60% of meals on first day here and refused lunch and dinner yesterday, eating only 25% breakfast Per Meal/Nutrition Activity Record . Dietary is currently providing an estimated 1800 kcals and 110 gm Pro. Pt came from SNF with reported poor appetite, will continue to monitor. Will provide Glucerna Hunger Smart TID until PO intake can meet estimated nutritional needs. Pt has no noted Hx DM, glucose 123 on admission with [facility] diet Rx. A1C pending. Anthropometrics HT: 57 WT: 142 LB (64.55 kg) BMI: 22.24 (normal) GI/ Skin Integrity GI: WNL, Soft, Flat, Non- tender BM: 7/8 x1 I/O: 620/Not Noted Skin: WNL, Intact Jono: 19 Diet Order: [facility] Estimated Energy Needs: ( Geriatric, CBW) 4069-8223 kcals (25-30 kcals/ kg) 65-80g Pro (1.0-1.2 g/kg) 2241-0736 ml (25-30 ml/kg) Current Diet Order/ Nutrition Support [facility] Pertinent Medications MOM (PRN), Protonix, Synthroid Pertinent Labs 11/14: Hgb/Hct 13.4/41.0, HDL 36 , Glucose 123, BUN/Cr 36/1.06, Urine ketones 3+, Urine Protein 1+ Nutritional Hx/Data Height 1.7 m Height (Calculated Centimeters) 170.2 Current Weight (lbs) 64.41 kg Weight (Calculated Kilograms) 64.4 Weight (Calculated Grams) 89596.1 [place] Body Weight 148 LB (67.27 kg) % [place] Body Weight 96 Body Mass Index (BMI) 22.2 Weight Status Approriate GI Symptoms Last BM 11/15 x1 Skin Integrity/Comment: Skin: WNL, Intact Jono: 19 Current %PO Poor (25-49%) Estimated Nutritional Goals BEE in Kcals: Using Current wt Calories/Kcals/Kg 25-30 Kcals Calculated 2157-3447 Protein: Using Current wt Protein g/k.0-1.2 Protein Calculated 65-80 Fluid: ml 0947-0848 ml (25-30 ml/kg) Nutritional Problem 1. Problem Problem Altered nutrition related labs Etiology r/t pathophysiological causes Signs/Symptoms: aeb labs (11/14) Glucose 123, BUN/Cr 36/1.06, Urine ketones 3+, Urine Protein 1+. Malnutrition Related to Morbid Obesity Malnutrition related to morbid obesity No Intervention/Recommendation Comments 1.Continue [facility] diet as tolerated. 2.Add Glucerna Hunger Smart TID (completed). Expected Outcomes/Goals Expected Outcomes/Goals 1.PO intake to meet 75% of estimated nutritional needs. 2.Monitor PO intake, wt, nutrition related labs, and skin integrity. 3.F/U as moderate risk in 3-5 days, 11/19-11/21.
--- NOTE | 2019-12-01 22:19 | Progress Notes ---
DATE: 12/01/2019 SUBJECTIVE: This is a 59-year-old male, currently in the hospital, noted to be still somewhat unruly, impulsive, but calm, seems to be approaching his baseline. No overt agitation or escalation of behaviors, sometimes noted to be pacing the unit any masturbation or sexually inappropriate behaviors, seems to be dissipating. Fair sleep and appetite. The patient remains confused, mumbling to self, but likely approaching his baseline, generally calm. No overt agitation at this time. PLAN: We will continue inpatient monitoring. The patient appears to be approaching his baseline. We will have ____, monitor for further 24 hours, monitor for any overt side effects. No EPS or akathisia noted on exam. JOB# [id number]
[2019-12-02] MEDS: Levothyroxine 0.025 Mg Tab PO SCH (06:52)
[2019-12-02] MEDS: Pantoprazole 40 mg EC Tab PO SCH (06:52)
[2019-12-02] MEDS: Multivitamin w/ Minerals Tab PO SCH (11:28)
--- NOTE | 2019-12-02 15:01 | Internal Medicine Prog Note ---
Internal Medicine Subjective - Subjective Service Date: 12/02/19 Patient seen and examined:: without staff Patient is:: awake, non-verbal Per staff patient has:: no adverse event, no episodes of fall Internal Medicine Objective - Results Result Diagrams: 11/21/19 12:10 11/21/19 12:10 Recent Labs: Laboratory Last Values WBC 7.7 K/uL (4.8-10.8) 11/21/19 12:10 RBC 4.17 MIL/uL (4.2-6.2) L 11/21/19 12:10 Hgb 13.3 g/dL (14.0-18.0) L 11/21/19 12:10 Hct 40.3 % (36-54) 11/21/19 12:10 MCV 97 fL (79.0-98.0) 11/21/19 12:10 MCH 32 pg (27-31) H 11/21/19 12:10 MCHC 33 % (32-36) 11/21/19 12:10 RDW 13.1 % (9.0-15.0) 11/21/19 12:10 Plt Count 207 K/uL (130-430) 11/21/19 12:10 MPV 8.9 fl (7.4-10.4) 11/21/19 12:10 Neut % (Auto) 65.9 % (40-70) 11/21/19 12:10 Lymph % (Auto) 26.5 % (20.5-51.5) 11/21/19 12:10 [place] % (Auto) 6.9 % (1.7-9.3) 11/21/19 12:10 Eos % (Auto) 0.5 % (0-4) 11/21/19 12:10 Baso % (Auto) 0.2 % (0.0-2.0) 11/21/19 12:10 Neut # (Auto) 5.1 K/uL (1.8-7.7) 11/21/19 12:10 Lymph # (Auto) 2.0 K/uL (1.0-5.5) 11/21/19 12:10 [place] # (Auto) 0.5 K/uL (0.0-1.0) 11/21/19 12:10 Eos # (Auto) 0.0 K/uL (0.0-0.4) 11/21/19 12:10 Baso # (Auto) 0.0 K/uL (0.0-0.2) 11/21/19 12:10 Sodium 136 mmol/L (136-145) 11/21/19 12:10 Potassium 4.0 mmol/L (3.5-5.1) 11/21/19 12:10 Chloride 103 mmol/L (98-107) 11/21/19 12:10 Carbon Dioxide 22 mmol/L (23-29) L 11/21/19 12:10 Anion Gap 15 (5-15) 11/21/19 12:10 BUN 26 mg/dL (8-21) H 11/21/19 12:10 Creatinine 0.77 mg/dL (0.70-1.30) 11/21/19 12:10 Glucose 89 mg/dL (70-99) 11/21/19 12:10 POC Glucose 135 MG/DL (70 - 105) H 11/22/19 10:52 Calcium 8.9 mg/dL (8.4-10.2) 11/21/19 12:10 Total Bilirubin 0.5 mg/dL (0.0-1.0) 11/21/19 12:10 AST 44 U/L (10-37) H 11/21/19 12:10 ALT 39 U/L (12-78) 11/21/19 12:10 Alkaline Phosphatase 75 U/L (46-116) 11/21/19 12:10 Total Protein 7.6 g/dL (6.4-8.3) 11/21/19 12:10 Albumin 3.9 g/dL (3.4-5.0) 11/21/19 12:10 Triglycerides 60 mg/dL (30-150) 11/15/19 15:05 Cholesterol 160 mg/dL (<200) 11/15/19 15:05 LDL Cholesterol 106 mg/dL (0-129) 11/15/19 15:05 HDL Cholesterol 36 mg/dL (>45) L 11/15/19 15:05 TSH 1.37 uIU/ml (0.34-5.60) 11/21/19 12:10 Coronavirus (PCR) Negative (NOT DETECTD) 11/28/19 16:05 - Physical Exam Vitals and I&O: Vital Signs Temp 97.4 F 12/02/19 14:46 Pulse 54 12/02/19 14:46 Resp 18 12/02/19 14:46 BP 128/86 12/02/19 14:46 Pulse Ox 98 12/02/19 14:46 Intake & Output 12/01/19 12/02/19 12/02/19 18:59 06:59 18:59 Intake Total 1200 120 Balance 1200 120 Intake: Oral 1200 120 Other: # Voids 4 3 # Bowel Movements 1 Stool Characteristics Soft Soft Formed Formed Brown Brown Active Medications: Current Medications Diphenhydramine HCl (Benadryl 50 Mg/Ml) 50 mg IM BID PRN PRN Reason: Agitation Stop: 01/17/20 15:56 Last Admin: 11/21/19 16:36 Dose: 50 mg Divalproex Sodium (Depakote Dr) 250 mg PO BID [facility]; Protocol Stop: 01/14/20 16:59 Last Admin: 12/02/19 11:29 Dose: 250 mg Haloperidol (Haldol) 5 mg PO BID [facility]; Protocol Stop: 01/17/20 16:59 Last Admin: 12/02/19 11:29 Dose: 5 mg Haloperidol Decanoate (Haldol Dec) 100 mg IM QMONTH [facility]; Protocol Stop: 01/20/20 12:59 Last Admin: 11/21/19 13:14 Dose: 100 mg Haloperidol Lactate (Haldol) 5 mg IM BID PRN PRN Reason: Agitation Stop: 01/17/20 15:53 Last Admin: 11/21/19 16:36 Dose: 5 mg Levothyroxine Sodium (Synthroid) 0.025 mg PO QDAC ANDI Stop: 01/15/20 07:29 Last Admin: 12/02/19 06:52 Dose: 0.025 mg Lorazepam (Ativan) 0.5 mg PO Q4HR PRN; Protocol PRN Reason: Anxiety Stop: 01/15/20 20:53 Last Admin: 11/29/19 08:22 Dose: 0.5 mg Magnesium Hydroxide (Milk Of Magnesia) 30 ml PO HS PRN PRN Reason: Constipation Pantoprazole Sodium (Protonix) 40 mg PO QDAC ANDI Stop: 01/15/20 07:29 Last Admin: 12/02/19 06:52 Dose: 40 mg Paroxetine HCl (Paxil) 10 mg PO BID [facility]; Protocol Stop: 01/24/20 16:59 Last Admin: 12/02/19 11:29 Dose: Not Given Zolpidem Tartrate (Ambien) 5 mg PO HS PRN PRN Reason: Insomnia Stop: 01/15/20 20:52 Last Admin: 12/01/19 20:22 Dose: 5 mg General: weak HEENT: NC/AT, PERRLA, EOMI Neck: Supple Lungs: CTAB Cardiovascular: RRR, Normal S1, Normal S2 Abdomen: soft, non-tender Extremities: clear Neurological: no change Internal Medicine Assmt/Plan - Assessment Assessment: 1. Hypothyroidism 2. Hx of CVA - Plan Plan: continue synthroid continue supportive care d/w r.n. reviewed medical records. Nutritional Asmnt/Malnutr-PDOC - Dietary Evaluation Malnutrition Findings (Please click <Entered> for more info): Nutritional Asmnt/Malnutrition Start: 11/17/19 12: 52 Text: Status: Complete Freq: Protocol: Document 11/17/19 12:52 CHANDRA (Rec: 11/17/19 12:55 CHANDRA [id number]) Nutritional Asmnt/Malnutrition Patient General Information Nutritional Screening Moderate Risk Diagnosis Acute Agitation and Psychosis Pertinent Medical Hx/Surgical Hx Advanced Dementia, Hypothyroidism, Osteoarthritis , Chronic Pain, HTN, Schizophrenia Subjective Information Pt is a 59-year-old male admitted on 11/14 d/t Acute Agitation and Psychosis. Pt ate an estimated 60% of meals on first day here and refused lunch and dinner yesterday, eating only 25% breakfast Per Meal/Nutrition Activity Record . Dietary is currently providing an estimated 1800 kcals and 110 gm Pro. Pt came from SNF with reported poor appetite, will continue to monitor. Will provide Glucerna Hunger Smart TID until PO intake can meet estimated nutritional needs. Pt has no noted Hx DM, glucose 123 on admission with [facility] diet Rx. A1C pending. Anthropometrics HT: 57 WT: 142 LB (64.55 kg) BMI: 22.24 (normal) GI/ Skin Integrity GI: WNL, Soft, Flat, Non- tender BM: 7/8 x1 I/O: 620/Not Noted Skin: WNL, Intact Jono: 19 Diet Order: [facility] Estimated Energy Needs: ( Geriatric, CBW) 7328-2793 kcals (25-30 kcals/ kg) 65-80g Pro (1.0-1.2 g/kg) 4857-6596 ml (25-30 ml/kg) Current Diet Order/ Nutrition Support [facility] Pertinent Medications MOM (PRN), Protonix, Synthroid Pertinent Labs 11/14: Hgb/Hct 13.4/41.0, HDL 36 , Glucose 123, BUN/Cr 36/1.06, Urine ketones 3+, Urine Protein 1+ Nutritional Hx/Data Height 1.7 m Height (Calculated Centimeters) 170.2 Current Weight (lbs) 64.41 kg Weight (Calculated Kilograms) 64.4 Weight (Calculated Grams) 77705.1 [place] Body Weight 148 LB (67.27 kg) % [place] Body Weight 96 Body Mass Index (BMI) 22.2 Weight Status Approriate GI Symptoms Last BM 11/15 x1 Skin Integrity/Comment: Skin: WNL, Intact Jono: 19 Current %PO Poor (25-49%) Estimated Nutritional Goals BEE in Kcals: Using Current wt Calories/Kcals/Kg 25-30 Kcals Calculated 2920-8233 Protein: Using Current wt Protein g/k.0-1.2 Protein Calculated 65-80 Fluid: ml 6890-8235 ml (25-30 ml/kg) Nutritional Problem 1. Problem Problem Altered nutrition related labs Etiology r/t pathophysiological causes Signs/Symptoms: aeb labs (11/14) Glucose 123, BUN/Cr 36/1.06, Urine ketones 3+, Urine Protein 1+. Malnutrition Related to Morbid Obesity Malnutrition related to morbid obesity No Intervention/Recommendation Comments 1.Continue [facility] diet as tolerated. 2.Add Glucerna Hunger Smart TID (completed). Expected Outcomes/Goals Expected Outcomes/Goals 1.PO intake to meet 75% of estimated nutritional needs. 2.Monitor PO intake, wt, nutrition related labs, and skin integrity. 3.F/U as moderate risk in 3-5 days, 11/19-11/21.
[2019-12-03] MEDS: Levothyroxine 0.025 Mg Tab PO SCH (06:43)
[2019-12-03] MEDS: Pantoprazole 40 mg EC Tab PO SCH (06:43)
[2019-12-03] MEDS: Multivitamin w/ Minerals Tab PO SCH (09:32)
[2019-12-04] MEDS: Levothyroxine 0.025 Mg Tab PO SCH (06:50)
[2019-12-04] MEDS: Pantoprazole 40 mg EC Tab PO SCH (06:50)
--- NOTE | 2019-12-04 07:56 | Progress Notes ---
DATE: 12/02/2019 SUBJECTIVE: The patient seen in the afternoon, who is noted to be generally calm, still confused, disoriented, but at times being impulsive, unpredictable, but generally calmer. We are attempting to get him placed at a lower level of care, pending COVID-19 testing and on confirmation, he can go back to the senior care facility. No further medication adjustments were made. Some periods of outbursts, pacing, but more redirectable. No longer is sexually inappropriate. No longer is combative, on Haldol Decanoate. Fair sleep and appetite. ASSESSMENT: A 59-year-old male, likely approaching baseline and ongoing behavioral disturbances, but less. Medications were reviewed. Labs reviewed. Vitals were reviewed. PLAN: We will continue to monitor. We will attempt to confirm a safe discharge plan over the next few days. JOB# [id number]
--- NOTE | 2019-12-04 07:56 | Progress Notes ---
DATE: 12/03/2019 SUBJECTIVE: The patient was seen, chart reviewed, and discussed with staff. The patient continues to be very intrusive, irritable, and agitated. He has, however, not been sexually inappropriate and not required any p.r.n. meds. He has been compliant with medications, denying any undue side effects. PLAN: The patient continues to be very irritable and impulsive, so that he will require inpatient care center and treatment. We will monitor on a daily basis for response to medications and titrate medications as needed. JOB# [id number]
[2019-12-04] MEDS: Multivitamin w/ Minerals Tab PO SCH (08:12)
--- NOTE | 2019-12-04 17:44 | Progress Notes ---
DATE: SUBJECTIVE: The patient was seen, chart reviewed, and discussed with staff. The patient continues to be rather irritable and impulsive, but generally redirectable. He has been compliant with medications, following unit rules with no redirections, denying any undue side effects. The patient has had stable food intake and sleep. PLAN: The patient continues to be very unpredictable and impulsive, so that he will require inpatient care center and treatment. We will monitor the patient on a daily basis for response to medications and titrate medications as needed. JOB# [id number]
[2019-12-05] MEDS: Levothyroxine 0.025 Mg Tab PO SCH (06:49)
[2019-12-05] MEDS: Pantoprazole 40 mg EC Tab PO SCH (06:49)
[2019-12-05] MEDS: Multivitamin w/ Minerals Tab PO SCH (09:28)
--- NOTE | 2019-12-05 17:03 | Discharge Summary ---
DATE OF DISCHARGE: 12/05/2019 HISTORY OF PRESENT ILLNESS: A 59-year-old male coming in from [facility] was agitated, aggressive, paranoid, not taking his medications, yelling, screaming, posturing, wanting to box and fight other people. PAST PSYCHIATRIC HISTORY: Schizophrenia. SOCIAL HISTORY: Coming in from a long-term. MEDICAL HISTORY: Please see full H and P. MEDICATIONS: Noted. MENTAL STATUS EXAMINATION: Please see full psych eval for details. DIAGNOSIS: Schizophrenia, rule out schizoaffective. HOSPITAL COURSE: After initial assessment, the patient was started on medications, he refused. Riese was filed, upheld, started on Haldol, Haldol Decanoate, Paxil for hypersexual behaviors. Over the course of treatment, mood improved, affect improved. Paxil actually was started for the anxiety symptoms, restlessness. Over the course of treatment, mood improved, affect improved, calm, generally more cooperative, no longer aggressive, no longer trying to fight people, more redirectable, sleeping well, eating well. CONDITION UPON DISCHARGE: Improved, calm, confused, but no agitation. No SI, no HI, no overt psychotic symptoms. DISCHARGE DIAGNOSIS: Schizophrenia. Medical, please see full H and P. PROGNOSIS: The patient follows up with outpatient mental health services and remains compliant with treatment. Prognosis will improve, otherwise guarded. [facility]# [id number]
== END 2019-12-05 17:35 | DRG 885 ==
LOC: GERO 11-15 01:30
PROVIDERS: ADMIT Psychiatry & Neurology Psychiatry; ATTEND Psychiatry & Neurology Psychiatry
DX: F20.9 Schizophrenia, unspecified (principal); F20.0 Paranoid schizophrenia; F03.90 Unspecified dementia, unspecified severity, without behavioral disturbance, psychotic disturbance, mood disturbance, and anxiety; E03.9 Hypothyroidism, unspecified; M19.90 Unspecified osteoarthritis, unspecified site; I10 Essential (primary) hypertension; F17.200 Nicotine dependence, unspecified, uncomplicated; G89.29 Other chronic pain; Z86.73 Personal history of transient ischemic attack (TIA), and cerebral infarction without residual deficits
CPT/HCPCS: 36415-UA; 80053-TC; 80061-TC; 82948-90; 83036-90; 84443-TC; 85025-TC; J1200; J1630; J1631; J2060; J7051; U0003-CS; Z7610